=== PATIENT | male | born 1950 | race Hispanic/Latino ===

== ENCOUNTER 2017-10-14 03:36 | Emergency (ER) | payer OTHER ==
[2017-10-14 04:53] LABS: Urine Bacteria <20 /HPF (NONE SEEN); Urine Culture Reflex Order NOT NEEDED; Urine RBC <5 /HPF (NONE SEEN)
[2017-10-14 04:56] LABS: Urine Blood TRACE (NEG); Urine Glucose 3+ (NEG); Urine Protein 2+ (NEG)
--- NOTE | 2017-10-14 05:02 | ER ---
Nurse's Notes [facility] Name: Mary Porter Age: 67 yrs Sex: Male : 1950 Arrival Date: 10/14/2017 Time: 03:37 Bed 5 Private MD: Diagnosis: Groin pain Presentation: 10/14 03:40 Presenting complaint: Patient states: that he is having left lower abd pain that fc started 2 1/2 weeks ago. States that when he lays down that he is ok but when he gets up to move it is worse and very sharp. Pt had BM this morning at 0200. Denies any nausea or vomiting. He is concerned because he was told that his PSA was elevated and thinks he may have something wrong with his prostate. Transition of care: patient was not received from another setting of care. Onset of symptoms was September 2017. Risk Assessment: Do you want to hurt yourself or someone else? Patient reports no desire to harm self or others. Initial Sepsis Screen: Does the patient meet any 2 criteria? No. Patient's initial sepsis screen is negative. Does the patient have a suspected source of infection? No. Patient's initial sepsis screen is negative. Care prior to arrival: None. 03:40 Method Of Arrival: Ambulatory fc 03:40 Acuity: MARISELA 3 fc Triage Assessment: 04:04 General: Appears in no apparent distress. Behavior is calm, cooperative. Pain: ak1 Complains of pain in abdomen, lower. EENT: No signs and/or symptoms were reported regarding the EENT system. Neuro: No deficits noted. Cardiovascular: No deficits noted. Respiratory: No deficits noted. GI: Reports lower abdominal pain, since 2.5 weeks [facility]. pt had CT 10/07/17. : No signs and/or symptoms were reported regarding the genitourinary system. Derm: No signs and/or symptoms reported regarding the dermatologic system. Musculoskeletal: Reports lower abd pain with standing for 2.5 weeks [facility]. pt had out patient CT on 10/07/17. Historical: - Allergies: 04:10 No Known Allergies; fc - Home Meds: 04:10 metoprolol tartrate 25 mg Oral tab 1 tab 2 times per day [Active]; Jardiance 10 mg oral fc tab 1 tab once daily [Active]; Janumet 50-500 mg oral tab 1 tab 2 times per day [Active]; aspirin 81 mg Oral TbEC 1 tab once daily [Active]; BRILINTA 90 mg oral tab 1 tab 2 times per day [Active]; isosorbide mononitrate 30 mg Oral Tb24 1 tab twice a day [Active]; doxycycline hyclate 50 mg Oral cap 1 cap once daily [Active]; losartan 50 mg oral tab 1 tab once daily [Active]; atorvastatin 20 mg oral tab 1 tab once daily [Active]; Nifedical XL 30 mg oral tr24 1 tab once daily [Active]; clonidine HCl 0.1 mg Oral tab 1 tab q 6 hrs prn sbp > 165 and dbp > 90 [Active]; Lucentis [Active]; - PMHx: 04:10 cancer- testicular; Hypertension; GERD; Diabetes - NIDDM; High Cholesterol; fc - PSHx: 04:10 left testicular removal; Knee surgery; Heart stents; fc - Immunization history:: Last tetanus immunization: unknown. - Social history:: Smoking status: Patient/guardian denies using tobacco. - Ebola Screening: : Patient negative for fever greater than or equal to 101.5 degrees Fahrenheit, and additional compatible Ebola Virus Disease symptoms Patient denies exposure to infectious person Patient denies travel to an Ebola-affected area in the 21 days before illness onset. - Family history:: not pertinent. - Hospitalizations: : No recent hospitalization is reported. Screenin:40 Abuse screen: Denies threats or abuse. Nutritional screening: No deficits noted. fc Tuberculosis screening: No symptoms or risk factors identified. Fall Risk None identified. Assessment: 04:18 Reassessment: Patient appears in no apparent distress at this time. No changes from ak1 previously documented assessment. see triage assessment. Vital Signs: 03:40 BP 161 / 89; Pulse 74; Resp 18; Temp 98.3(O); Pulse Ox 95% on R/A; Weight 106.59 kg fc (R); Height 5 ft. 9 in. (175.26 cm) (R); Pain 9/10; 04:43 BP 130 / 73; Pulse 67; Resp 18; Pulse Ox 95% on R/A; ak1 03:40 Body Mass Index 34.70 (106.59 kg, 175.26 cm) ED Course: 03:37 Patient arrived in ED. ds1 03:40 Jerrell Maldonado MD is Attending Physician. rn 03:40 Arm band placed on Patient placed in an exam room, on a stretcher. 03:40 Patient has correct armband on for positive identification. Bed in low position. Call light in reach. 04:01 Triage completed. 04:04 Violet Bernal, RN is Primary Nurse. ak1 04:18 Pulse ox on. NIBP on. ak1 04:18 Urine collected: clean catch specimen, clear. ak1 05:00 No provider procedures requiring assistance completed. ak1 05:02 Patient did not have IV access during this emergency room visit. ak1 Administered Medications: 04:55 Drug: [place] 5 mg-325 mg 1 tabs Route: PO; ak1 05:01 Follow up: Response: No adverse reaction; Medication administered at discharge. ak1 Outcome: 05:01 Discharge ordered by . rn 05:02 Discharged to home ambulatory, with family. ak1 05:02 Condition: stable 05:02 Discharge instructions given to patient, family, Instructed on discharge instructions, follow up and referral plans. no drinking with medication, no driving heavy equipment, medication usage, Demonstrated understanding of instructions, follow-up care, medications, Prescriptions given X 1. 05:06 Patient left the ED. ak1 Signatures: Quiana Hightower RN RN Анна Delaney ds1 Jerrell Maldonado MD MD rn Krenek, Amber, RN RN ak1
--- NOTE | 2017-10-14 05:02 | EDPHYS ---
Physician Documentation [facility] Name: Mary Porter Age: 67 yrs Sex: Male : 1950 Arrival Date: 10/14/2017 Time: 03:37 Bed 5 Private MD: ED Physician Jerrell Maldonado HPI: 10/14 04:04 This 67 yrs old Male presents to ER via Ambulatory with complaints of Hip Pain.rn 04:04 This 67 yrs old Male presents to ER via Ambulatory with complaints of groin rn pain. 04:04 The patient or guardian reports pain. Onset: The symptoms/episode began/occurred 2.5 rn week(s) ago. Severity of symptoms: At their worst the symptoms were moderate, in the emergency department the symptoms have improved. The patient has experienced similar episodes in the past. Reports pain in left groin for 2.5 weeks, intermittent, worse when stands but then gets better as he ambulates, no trauma, no fever, + increased urination today. Seen at [facility] for this 5 days ago, had negative xrays and ct abd/pelvis with and without contrast. + kidney stones seen but in kidney. Currently no pain. . Historical: - Allergies: 04:10 No Known Allergies; fc - Home Meds: 04:10 metoprolol tartrate 25 mg Oral tab 1 tab 2 times per day [Active]; Jardiance 10 mg oral fc tab 1 tab once daily [Active]; Janumet 50-500 mg oral tab 1 tab 2 times per day [Active]; aspirin 81 mg Oral TbEC 1 tab once daily [Active]; BRILINTA 90 mg oral tab 1 tab 2 times per day [Active]; isosorbide mononitrate 30 mg Oral Tb24 1 tab twice a day [Active]; doxycycline hyclate 50 mg Oral cap 1 cap once daily [Active]; losartan 50 mg oral tab 1 tab once daily [Active]; atorvastatin 20 mg oral tab 1 tab once daily [Active]; Nifedical XL 30 mg oral tr24 1 tab once daily [Active]; clonidine HCl 0.1 mg Oral tab 1 tab q 6 hrs prn sbp > 165 and dbp > 90 [Active]; Lucentis [Active]; - PMHx: 04:10 cancer- testicular; Hypertension; GERD; Diabetes - NIDDM; High Cholesterol; fc - PSHx: 04:10 left testicular removal; Knee surgery; Heart stents; fc - Immunization history:: Last tetanus immunization: unknown. - Social history:: Smoking status: Patient/guardian denies using tobacco. - Ebola Screening: : Patient negative for fever greater than or equal to 101.5 degrees Fahrenheit, and additional compatible Ebola Virus Disease symptoms Patient denies exposure to infectious person Patient denies travel to an Ebola-affected area in the 21 days before illness onset. - Family history:: not pertinent. - Hospitalizations: : No recent hospitalization is reported. ROS: 04:04 Constitutional: Negative for fever, chills, and weight loss, Eyes: Negative for injury, rn pain, redness, and discharge, Cardiovascular: Negative for chest pain, palpitations, and edema, Respiratory: Negative for shortness of breath, cough, wheezing, and pleuritic chest pain, Abdomen/GI: Negative for abdominal pain, nausea, vomiting, diarrhea, and constipation, Back: Negative for injury and pain, : + increased urination, no testicular pain MS/Extremity: Negative for injury and deformity, Skin: Negative for injury, rash, and discoloration, Neuro: Negative for headache, weakness, numbness, tingling, and seizure. Exam: 04:04 Constitutional: This is a well developed, well nourished patient who is awake, alert, rn and in no acute distress. Abdomen/GI: Soft, non-tender, with normal bowel sounds. No distension or tympany. No guarding or rebound. No evidence of tenderness throughout. + moderate sized ventral hernia present. Male : Normal genitalia with no discharge or lesions. Skin: Warm, dry with normal turgor. Normal color with no rashes, no lesions, and no evidence of cellulitis. MS/ Extremity: Pulses equal, no cyanosis. Neurovascular intact. Full, normal range of motion. Equal circumference. No bony tenderness, no lymphadenopathy. No hernia palpated in inguinal canal. Vital Signs: 03:40 BP 161 / 89; Pulse 74; Resp 18; Temp 98.3(O); Pulse Ox 95% on R/A; Weight 106.59 kg fc (R); Height 5 ft. 9 in. (175.26 cm) (R); Pain 9/10; 04:43 BP 130 / 73; Pulse 67; Resp 18; Pulse Ox 95% on R/A; ak1 03:40 Body Mass Index 34.70 (106.59 kg, 175.26 cm) fc MDM: 03:40 Patient medically screened. rn 04:58 Differential diagnosis: arthritis, strain, hernia, UTI, radiculopathy. Data reviewed: rn vital signs, nurses notes, lab test result(s), and as a result, I will discharge patient. Counseling: I had a detailed discussion with the patient and/or guardian regarding: the historical points, exam findings, and any diagnostic results supporting the discharge/admit diagnosis, lab results, the need for outpatient follow up, to return to the emergency department if symptoms worsen or persist or if there are any questions or concerns that arise at home. Special discussion: I discussed with the patient/guardian in detail that at this point there is no indication for admission to the hospital. It is understood, however, that if the symptoms persist or worsen the patient needs to return immediately for re-evaluation. 04:58 ED course: No clear etiology of this patient's pain, had normal xrays and ct scans 5 rn days ago, printouts are here with patient, urine negative, does not seem to be kidney stone pain although that is only finding on recent CT scan, no palpable hernia, will prescribe pain medication and f/u with pcp. . 10/14 04:03 Order name: Urine Microscopic Only; Complete Time: 04:58 rn 10/14 04:19 Order name: Urine Dipstick--Ancillary (enter results); Complete Time: 04:58 rg2 10/14 04:03 Order name: Urine Dipstick-Ancillary (obtain specimen); Complete Time: 04:18 rn Administered Medications: 04:55 Drug: Delong 5 mg-325 mg 1 tabs Route: PO; ak1 05:01 Follow up: Response: No adverse reaction; Medication administered at discharge. ak1 Disposition: 10/14/17 05:01 Discharged to Home. Impression: Groin pain. - Condition is Stable. - Discharge Instructions: Pain Without a Known Cause. - Prescriptions for Ultram 50 mg Oral Tablet - take 1 tablet by ORAL route every 8 hours As needed; 20 tablet. - Medication Reconciliation Form, Thank You Letter, Antibiotic Education, Prescription Opioid Use form. - Follow up: Private Physician; When: As needed; Reason: Recheck today's complaints, Re-evaluation by your physician. - Problem is an ongoing problem. - Symptoms have improved. Signatures: Dispatcher [employer] EDQuiana Venegas RN RN fc Nieto, Roman, MD MD rn Krenek, Amber, RN RN ak1 Corrections: (The following items were deleted from the chart) 05:06 05:01 10/14/2017 05:01 Discharged to Home. Impression: Groin pain. Condition is Stable. ak1 Forms are Medication Reconciliation Form, Thank You Letter, Antibiotic Education, Prescription Opioid Use. Follow up: Private Physician; When: As needed; Reason: Recheck today's complaints, Re-evaluation by your physician. Problem is an ongoing problem. Symptoms have improved. rn
[2017-10-14] MEDS ORDERED: HYDROCODONE/APAP 5/325 MG TAB ONE (05:03)
== END 2017-10-14 05:06 | disposition home or self-care (01) ==
LOC: ER 03:36
DX: R10.30 Lower abdominal pain, unspecified (principal); I10 Essential (primary) hypertension; E11.9 Type 2 diabetes mellitus without complications; E78.00 Pure hypercholesterolemia, unspecified; Z85.47 Personal history of malignant neoplasm of testis; Z79.82 Long term (current) use of aspirin
CPT/HCPCS: 81003; 81015; 99284

== ENCOUNTER 2018-07-12 13:56 | Emergency (ER) | payer OTHER ==
--- OUTSIDE RECORDS SUMMARY | 2018-07-12 14:02 | XMS REPORT ---
:1950 [facility] [address] [place] [address] Care Team Providers Name Role Phone Kevin Evans Unavailable Unavailable Problems This patient has no known problems. Allergies, Adverse Reactions, Alerts This patient has no known allergies or adverse reactions. Medications This patient has no known medications. Results Test Description Test Time Test Comments Text Results Atomic Results Result Comments MRI PELVIS W/WO 2018-02-07 13:44:18 CLINICAL INDICATION: C61 malig sergio (PROSTATE) prostateMODALITY: Siemens Skyra 3.0 Marlena MRITECHNIQUE: Multiplanar, multiparametric MRI of the prostate is performed with T1, T2 and diffusion weighted imaging. Quantitative analysis is performed with Frontier SiliconaCAD. IV contrast is administered, 20.0 ml Dotarem Dynamic post-contrast imaging with Frontier SiliconaCAD quantitative analysis are accomplished.[id number] MR DynaCADIMPRESSION:Large targeted lesion in the posterior left peripheral zone extending from the apex to the base, suspicious for high-grade tumor. No definite extracapsular penetration or extra prostatic malignancy.PI-RADS 5: Highly suspicious for malignancy.FINDINGS:COMPARISON: NoneNormal regional marrow signal is observed. No lytic or blastic osseous metastatic lesions.No common iliac, internal iliac, external iliac, inguinal or suspicious sasha-prostatic lymph nodes.Regional bowel appears unremarkable. No mural or intraluminal bladder mass. Anterior abdominal wall and pelvic floor are unremarkable. No evidence of ascites.Estimated prostate volume is 48 ml. A 2.5 x 1.6 x 2.4 cm lesion is targeted in the posterior aspect of the left peripheral zone extending from the apex to the base. This demonstrates moderately low T2 signal with restricted diffusion. There is no suspicious focal enhancement. The lesion abuts the prostate capsule with mild bulging. There is no definite extracapsular penetration. Post-biopsy hemorrhage is noted in the right peripheral zone. Mild to moderate BPH is evident.Seminal vesicles exhibit normal signal intensity. Neurovascular bundles are symmetric in appearance without definite tumor involvement.
--- OUTSIDE RECORDS SUMMARY | 2018-07-12 14:02 | XMS REPORT | Clinical Summary ---
:1950 Author Organization [facility] Address [address] [place] [address] Care Team Providers Name Role Phone Adin Farrar MD Primary Care Provider Allergies Active Allergy Reactions Severity Noted Date Comments Diphenhydramine Hcl Anaphylaxis High 03/13/2016 Medications Medication Sig Dispensed Refills Start Date End Date Status losartan (COZAAR) 50 Take 50 mg by 0 Active MG tablet mouth daily. doxycycline hyclate 50 Take 50 mg by 0 Active mg tablet mouth daily. latanoprost (XALATAN) Administer 1 drop 0 Active 0.005 % ophthalmic to both eyes solution daily. isosorbide mononitrate Take 30 mg by 0 Active (IMDUR) 30 MG 24 hr mouth 2 (two) tablet times a day. aspirin (ECOTRIN) 81 Take 81 mg by 0 Active MG enteric coated mouth daily. tablet ticagrelor (BRILINTA) Take 90 mg by 0 Active 90 mg tablet mouth 2 (two) times a day. metoprolol tartrate Take 25 mg by 0 Active (LOPRESSOR) 25 mg mouth 2 (two) tablet times a day. canagliflozin Take 100 mg by 0 Active (INVOKANA) 100 mg mouth daily. tablet tablet sitaGLIPtin-metformin Take 1 tablet by 0 Active (JANUMET) 50-1,000 mg mouth 2 (two) per tablet times a day with meals. atorvastatin (LIPITOR) Take 20 mg by 0 Active 20 MG tablet mouth daily. Default OP ins ranibizumab (LUCENTIS) Administer 0.3 mg 0 Active 0.3 mg/0.05 mL to the right eye injection every 30 (thirty) days. Active Problems Problem Noted Date SOB (shortness of breath) 03/13/2016 Diabetes mellitus Encounters Date Type Specialty Care Team Description 10/19/2017 Office Visit General Surgery Yosef Whitfield Abdominal wall bulge MD Prerna (Primary Dx) 10/05/2017 Transcribe Orders Radiology Salazar Brink Left lower quadrant MD pain (Primary Dx) after 07/11/2017 Family History Medical History Relation Name Comments No Known Problems Brother No Known Problems Father No Known Problems Mother Relation Name Status Comments Brother Father Mother Social History Tobacco Use Types Packs/Day Years Used Date Former Smoker 20 Quit: 03/13/2012 Alcohol Use Drinks/Week oz/Week Comments No Sex Assigned at Date Recorded Not on file Job Start Date Occupation Industry Not on file Not on file Not on file Travel History Travel Start Travel End No recent travel history available. Last Filed Vital Signs Vital Sign Reading Time Taken Blood Pressure - - Pulse - - Temperature - - Respiratory Rate - - Oxygen Saturation - - Inhaled Oxygen Concentration - - Weight 107 kg (236 lb) 10/07/2017 8:31 AM CDT Height 175.3 cm (5' 9") 10/07/2017 8:31 AM CDT Body Mass Index 34.85 10/07/2017 8:31 AM CDT Plan of Treatment Health Maintenance Due Date Last Done Comments DIABETIC RETINAL EYE EXAM 1950 DIABETIC FOOT EXAM 1961 COLON CANCER SCREENING 2001 SHINGLES VACCINES (#1) 2001 65+ PNEUMOCOCCAL VACCINE (1 of 2 - PCV13) 2016 PNEUMOCOCCAL POLYSACCHARIDE VACCINE AGE 65 AND OVER 2016 INFLUENZA VACCINE 09/08/2018 Implants Implanted Type Area Security Checker Device Shelf Model / Identifier Expiration Serial / Lot Date Stent Cor Resolute Integrity Ztrlims-Eltng Otw 3x15mm - [id number] Coronary N/ A: [employer] [place] - 10/08/2017 [id number] / Implanted: 03/13/2016 (Quantity not on file) Stents N/A VASCULAR / [id number] Procedures Procedure Name Priority Date/Time Associated Diagnosis Comments CT ABDOMEN W WO Routine 10/07/2017 9:45 Unspecified Results for this CONTRAST AM CDT abdominal pain procedure are in the results section. ESTIMATED GFR Routine 10/07/2017 8:42 Results for this AM CDT procedure are in the results section. POC CREATININE Routine 10/07/2017 8:42 Results for this AM CDT procedure are in the results section. after 07/11/[address] Abdomen W Wo Contrast (10/07/2017 9:45 AM CDT) Specimen Narrative Performed At EXAMINATION:CT ABDOMEN W WO CONTRAST [facility] CLINICAL HISTORY:R10.9 Unspecified abdominal pain, abdomin pain TECHNIQUE:CT of the abdomen was obtained following the uneventful administration of intravenous and enteric contrast. Noncontrast images through the abdomen were also obtained. COMPARISON:None. FINDINGS: 1.There is a nonspecific, noncalcified, subpleural pulmonary nodule seen within the right middle lobe inferiorly (image 6, series 2), measuring 0.3 cm in size. This is too small to characterize and may be related to a prior infectious or inflammatory process. 2.Otherwise, bibasilar atelectasis. No pleural effusion. Cardiac size is at the upper limits of normal. Significant three-vessel coronary artery calcification is noted. No pericardial effusion. 3.No hiatal hernia. 4.The liver is unremarkable. No intrahepatic biliary duct dilatation. The main portal vein, intrahepatic portal veins, superior mesenteric vein, and splenic veins are patent. 5.The gallbladder is unremarkable. No gallstones are seen. Common bile duct is within normal limits. 6.The pancreas, spleen, and adrenals are unremarkable. 7.Both kidneys are unremarkable. A low-density masses seen to arise from the lower pole of the left kidney measuring 2 cm in size, likely representing a cyst. No hydronephrosis. Punctate dislocations are seen within the mid/lower pole calyces of the left kidney which may represent nonobstructing renal stones measuring up to 0.8 cm in size. 8.Post surgical changes are seen which may be related to a left lower pole partial nephrectomy. Surgical clips are seen within the retroperitoneum, possibly representing prior lymph node dissection. No fluid collections are seen within the retroperitoneum. 9.The abdominal aorta is normal in caliber with a moderate amount of calcified atherosclerotic disease. 10.No retroperitoneal lymphadenopathy. 11.The visualized loops of large and small bowel are unremarkable. 12.The bones of the abdomen and pelvis are unremarkable. IMPRESSION: 1.No acute abnormality is seen within the abdomen or pelvis. 2.Likely postsurgical changes consistent with a left sided partial nephrectomy and retroperitoneal lymph node dissection. Please clinically correlate. No abdominal mass or retroperitoneal lymphadenopathy. 3.No fluid collections are seen within the abdomen. 4.Other incidental findings as above. [id number] Procedure Note Hm Interface, Radiology Results Incoming - 10/07/2017 10:02 AM CDT EXAMINATION: CT ABDOMEN W WO CONTRAST CLINICAL HISTORY: R10.9 Unspecified abdominal pain, abdomin pain TECHNIQUE: CT of the abdomen was obtained following the uneventful administration of intravenous and enteric contrast. Noncontrast images through the abdomen were also obtained. COMPARISON: None. FINDINGS: 1. There is a nonspecific, noncalcified, subpleural pulmonary nodule seen within the right middle lobe inferiorly (image 6, series 2), measuring 0.3 cm in size. This is too small to characterize and may be related to a prior infectious or inflammatory process. 2. Otherwise, bibasilar atelectasis. No pleural effusion. Cardiac size is at the upper limits of normal. Significant three-vessel coronary artery calcification is noted. No pericardial effusion. 3. No hiatal hernia. 4. The liver is unremarkable. No intrahepatic biliary duct dilatation. The main portal vein, intrahepatic portal veins, superior mesenteric vein, and splenic veins are patent. 5. The gallbladder is unremarkable. No gallstones are seen. Common bile duct is within normal limits. 6. The pancreas, spleen, and adrenals are unremarkable. 7. Both kidneys are unremarkable. A low-density masses seen to arise from the lower pole of the left kidney measuring 2 cm in size, likely representing a cyst. No hydronephrosis. Punctate dislocations are seen within the mid/lower pole calyces of the left kidney which may represent nonobstructing renal stones measuring up to 0.8 cm in size. 8. Post surgical changes are seen which may be related to a left lower pole partial nephrectomy. Surgical clips are seen within the retroperitoneum, possibly representing prior lymph node dissection. No fluid collections are seen within the retroperitoneum. 9. The abdominal aorta is normal in caliber with a moderate amount of calcified atherosclerotic disease. 10. No retroperitoneal lymphadenopathy. 11. The visualized loops of large and small bowel are unremarkable. 12. The bones of the abdomen and pelvis are unremarkable. IMPRESSION: 1. No acute abnormality is seen within the abdomen or pelvis. 2. Likely postsurgical changes consistent with a left sided partial nephrectomy and retroperitoneal lymph node dissection. Please clinically correlate. No abdominal mass or retroperitoneal lymphadenopathy. 3. No fluid collections are seen within the abdomen. 4. Other incidental findings as above. [id number] Performing Organization Address [facility]/Zipcode Phone Number [facility] [address] [place] [address] Estimated GFR (10/07/2017 8:42 AM CDT) GFR Non Af Amer >90 mL/min/1.[address] [facility] DEPARTMENT OF m2 PATHOLOGY AND GENOMIC MEDICINE GFR Af Amer >90 mL/min/1.[address] [facility] DEPARTMENT OF Comment: m2 PATHOLOGY AND Chronic kidney disease: <60 mL/min/1.73m2 GENOMIC MEDICINE Kidney failure: <15 mL/min/1.73m2 The estimated GFR is calculated from the IDMS-traceable Modification of Diet in Renal Disease Equation. The accuracy of the calculation is poor when the creatinine is normal. Calculated values >90 mL/min/1.73m2 are not reported. This equation has not been validated in children (<18 years), women, the elderly (>70 years), or ethnic groups other than Caucasians and Americans. Specimen Blood Performing Organization Address [facility] Phone Number [facility] DEPARTMENT OF PATHOLOGY AND [address] [place] [address] GENOMIC MEDICINE POC creatinine (10/07/2017 8:42 AM CDT) POC creatinine 0.5 (L) 0.7 - 1.[address] [facility] DEPARTMENT OF Comment: mg/dl PATHOLOGY AND Meter ID: [id number] GENOMIC MEDICINE Forepart Laster: Alicia Wood Specimen Blood Performing Organization Address [facility] Phone Number [facility] DEPARTMENT OF PATHOLOGY AND [address] [place] [address] GENOMIC MEDICINE after 07/11/2017 Insurance Payer Benefit Plan / Subscriber ID Effective Dates Phone Address Type Group HUMANA MEDICARE HUMANA MEDICARE xxxxxxxxx 2016-Present PPO PPO/PFFS/ERS [place] ([place]) [place] [address] Advance Directives Patient has advance care planning documents on file. For more information, please contact:Huan Mcneal[address] [place] [phone]
--- NOTE | 2018-07-12 15:16 | EDPHYS ---
Physician Documentation [facility] Name: Mary Porter Age: 68 yrs Sex: Male : 1950 Arrival Date: 07/12/2018 Time: 14:14 Bed 30 Private MD: LINDA Physician Devin Hanks HPI: 07/12 15:11 This 68 yrs old Male presents to ER via Wheelchair with complaints of Back kb Pain. 15:12 The patient presents with pain that is acute. The symptoms are located in the right low kb back. The pain does not radiate. The problem was sustained when bending over. Onset: The symptoms/episode began/occurred 2 month(s) ago. Modifying factors: The patient symptoms are alleviated by remaining still, rest, the patient symptoms are aggravated by any movement. Associated signs and symptoms: The patient has no apparent associated signs or symptoms. Severity of symptoms: At their worst the symptoms were moderate, in the emergency department the symptoms are unchanged. The patient has not experienced similar symptoms in the past. The patient has not recently seen a physician. Pt reports he had had right lower back pain for 1-2 months. STates it has been getting worse as time goes on and he came today because he needs something for the pain. States the pain first started when he was bending over weed eating the yard. Reports he did a lot of yards and house work at the time of the pain starting, but denies injury or trauma. Denies urinary symptoms. Pain is just above right hip. No pain at rest. . Historical: - Home Meds: 14:48 aspirin 81 mg Oral TbEC 1 tab once daily [Active]; atorvastatin 20 mg Oral tab 1 tab tw2 once daily [Active]; BRILINTA 90 mg Oral tab 1 tab 2 times per day [Active]; clonidine HCl 0.1 mg Oral tab 1 tab q 6 hrs prn sbp > 165 and dbp > 90 [Active]; doxycycline hyclate 50 mg Oral cap 1 cap once daily [Active]; isosorbide mononitrate 30 mg Oral Tb24 1 tab twice a day [Active]; Janumet 50-500 mg Oral tab 1 tab 2 times per day [Active]; Jardiance 10 mg Oral tab 1 tab once daily [Active]; losartan 50 mg Oral tab 1 tab once daily [Active]; Lucentis [Active]; metoprolol tartrate 25 mg Oral tab 1 tab 2 times per day [Active]; Nifedical XL 30 mg Oral tr24 1 tab once daily [Active]; - PMHx: 14:48 cancer- testicular; Diabetes - NIDDM; High Cholesterol; GERD; Hypertension; prostate tw2 cancer; - PSHx: 14:48 left testicular removal; Knee surgery; Heart stents; tw2 - Immunization history:: Adult Immunizations. - Social history:: Smoking status: . - Ebola Screening: : Patient denies travel to an Ebola-affected area in the 21 days before illness onset. ROS: 15:08 Constitutional: Negative for fever, chills, and weight loss, Cardiovascular: Negative kb for chest pain, palpitations, and edema, Respiratory: Negative for shortness of breath, cough, wheezing, and pleuritic chest pain, Abdomen/GI: Negative for abdominal pain, nausea, vomiting, diarrhea, and constipation, : Negative for injury, bleeding, discharge, and swelling, MS/Extremity: Negative for injury and deformity, Skin: Negative for injury, rash, and discoloration, Neuro: Negative for headache, weakness, numbness, tingling, and seizure. 15:08 Back: Positive for pain with movement, of the right low back, Negative for injury or acute deformity, decreased range of motion, pain at rest, radiated pain. Exam: 15:08 Constitutional: This is a well developed, well nourished patient who is awake, alert, kb and in no acute distress. Head/Face: Normocephalic, atraumatic. Neck: Trachea midline, no thyromegaly or masses palpated, and no cervical lymphadenopathy. Supple, full range of motion without nuchal rigidity, or vertebral point tenderness. No Meningismus. Chest/axilla: Normal chest wall appearance and motion. Nontender with no deformity. No lesions are appreciated. Cardiovascular: Regular rate and rhythm with a normal S1 and S2. No gallops, murmurs, or rubs. Normal PMI, no JVD. No pulse deficits. Respiratory: Lungs have equal breath sounds bilaterally, clear to auscultation and percussion. No rales, rhonchi or wheezes noted. No increased work of breathing, no retractions or nasal flaring. Abdomen/GI: Soft, non-tender, with normal bowel sounds. No distension or tympany. No guarding or rebound. No evidence of tenderness throughout. Skin: Warm, dry with normal turgor. Normal color with no rashes, no lesions, and no evidence of cellulitis. MS/ Extremity: Pulses equal, no cyanosis. Neurovascular intact. Full, normal range of motion. Neuro: Awake and alert, GCS 15, oriented to person, place, time, and situation. Cranial nerves II-XII grossly intact. Motor strength 5/5 in all extremities. Sensory grossly intact. Cerebellar exam normal. Normal gait. 15:08 Back: pain, that is moderate, of the right low back, ROM is painful, with all movement, normal spinal alignment noted, CVA tenderness, is absent, vertebral tenderness, is not appreciated, Straight leg raises: of both lower extremities does not illicit pain. Vital Signs: 14:48 BP 117 / 72; Pulse 67; Resp 17; Temp 98.0(O); Pulse Ox 95% on R/A; Weight 108.86 kg tw2 (R); Height 5 ft. 9 in. (175.26 cm); Pain 7/10; 15:38 BP 138 / 79; Pulse 68; Resp 16; Temp 98; Pulse Ox 96% ; rv 14:48 Body Mass Index 35.44 (108.86 kg, 175.26 cm) tw2 MDM: 14:57 Patient medically screened. kb 15:10 Data reviewed: vital signs, nurses notes. Data interpreted: Pulse oximetry: on room air kb is 95 %. Interpretation: normal. Counseling: I had a detailed discussion with the patient and/or guardian regarding: the historical points, exam findings, and any diagnostic results supporting the discharge/admit diagnosis, the need for outpatient follow up, a family practitioner, to return to the emergency department if symptoms worsen or persist or if there are any questions or concerns that arise at home. ED course: Pt has no pain on palpation. No pain with ROM of right hip. . [id number] 15:40 Order name: Urine Dipstick--Ancillary (enter results) bd 07/12 15:06 Order name: Urine Dipstick-Ancillary (obtain specimen); Complete Time: 15:17 kb Administered Medications: 15:17 Drug: Flexeril 10 mg Route: PO; rv 15:41 Follow up: Response: Marked relief of symptoms; Pain is decreased rv 15:17 Drug: TORadol 60 mg Route: IM; Site: right deltoid; rv 15:41 Follow up: Response: Marked relief of symptoms; Pain is decreased rv Disposition: 07/13 07:44 Co-signature as Attending Physician, Devin Hanks MD I agree with the assessment and willian plan of care. Disposition: 07/12/18 15:15 Discharged to Home. Impression: Low back pain. - Condition is Stable. - Discharge Instructions: Back Injury Prevention, [id number], Back Pain, Adult, Zlxk-[id number], Back Exercises, Mnso-wx-[id number]. - Prescriptions for Cyclobenzaprine 10 mg Oral Tablet - take 1 tablet by ORAL route every 8 hours As needed; 21 tablet. Diclofenac Sodium 75 mg Oral Tablet, Delayed Release (E.C.) - take 1 tablet by ORAL route 2 times per day As needed; 30 tablet. - Medication Reconciliation Form, Thank You Letter, Antibiotic Education, Prescription Opioid Use form. - Follow up: Emergency Department; When: As needed; Reason: Worsening of condition. Follow up: Private Physician; When: 2 - 3 days; Reason: Recheck today's complaints, Continuance of care, Re-evaluation by your physician. Signatures: Dispatcher [employer] EDTiffany Parsons, CREDIT CONTROL ADMINISTRATOR-C CREDIT CONTROL ADMINISTRATOR-Devin Suarez MD MD cha Wise, Tara, RN RN tw2 Tj Linares, RN RN rv Corrections: (The following items were deleted from the chart) 07/12 15:42 15:15 07/12/2018 15:15 Discharged to Home. Impression: Low back pain. Condition is rv Stable. Forms are Medication Reconciliation Form, Thank You Letter, Antibiotic Education, Prescription Opioid Use. Follow up: Emergency Department; When: As needed; Reason: Worsening of condition. Follow up: Private Physician; When: 2 - 3 days; Reason: Recheck today's complaints, Continuance of care, Re-evaluation by your physician. kb
--- NOTE | 2018-07-12 15:16 | ER ---
Nurse's Notes [facility] Name: Mary Porter Age: 68 yrs Sex: Male : 1950 Arrival Date: 07/12/2018 Time: 14:14 Bed 30 Private MD: Diagnosis: Low back pain Presentation: 07/12 14:44 Presenting complaint: Patient states: i have this pain on RIGHT side on my waist, it tw2 started on and off for sometime now, it has been getting worse and worse, i have been going through radiation treatments for prostate cancer, i finished the treatments 1 month ago, pain gets worse with position change, standing and walking hurts it. Presenting complaint: Patient states: i notice when i lay down it relaxes. Transition of care: patient was not received from another setting of care. Onset of symptoms was July 12, 2018. Risk Assessment: Do you want to hurt yourself or someone else? Patient reports no desire to harm self or others. Initial Sepsis Screen: Does the patient meet any 2 criteria? No. Patient's initial sepsis screen is negative. Does the patient have a suspected source of infection? No. Patient's initial sepsis screen is negative. Care prior to arrival: None. 14:44 Method Of Arrival: Wheelchair tw2 14:44 Acuity: MARISELA 3 tw2 Triage Assessment: 14:48 General: Appears in no apparent distress. Behavior is calm, cooperative, appropriate tw2 for age. Pain: Complains of pain in right low back. Musculoskeletal: Circulation, motion, and sensation intact. Range of motion: intact in all extremities, Reports pain in right low back. Historical: - Home Meds: 14:48 aspirin 81 mg Oral TbEC 1 tab once daily [Active]; atorvastatin 20 mg Oral tab 1 tab tw2 once daily [Active]; BRILINTA 90 mg Oral tab 1 tab 2 times per day [Active]; clonidine HCl 0.1 mg Oral tab 1 tab q 6 hrs prn sbp > 165 and dbp > 90 [Active]; doxycycline hyclate 50 mg Oral cap 1 cap once daily [Active]; isosorbide mononitrate 30 mg Oral Tb24 1 tab twice a day [Active]; Janumet 50-500 mg Oral tab 1 tab 2 times per day [Active]; Jardiance 10 mg Oral tab 1 tab once daily [Active]; losartan 50 mg Oral tab 1 tab once daily [Active]; Lucentis [Active]; metoprolol tartrate 25 mg Oral tab 1 tab 2 times per day [Active]; Nifedical XL 30 mg Oral tr24 1 tab once daily [Active]; - PMHx: 14:48 cancer- testicular; Diabetes - NIDDM; High Cholesterol; GERD; Hypertension; prostate tw2 cancer; - PSHx: 14:48 left testicular removal; Knee surgery; Heart stents; tw2 - Immunization history:: Adult Immunizations. - Social history:: Smoking status: . - Ebola Screening: : Patient denies travel to an Ebola-affected area in the 21 days before illness onset. Screenin:40 Abuse screen: Denies threats or abuse. Denies injuries from another. Nutritional rv screening: No deficits noted. Tuberculosis screening: No symptoms or risk factors identified. Fall Risk None identified. Assessment: 15:00 General: Appears in no apparent distress. uncomfortable, Behavior is calm, cooperative. rv 15:00 Pain: Complains of pain in back. Neuro: Level of Consciousness is awake, alert, obeys rv commands, Oriented to person, place, time, situation. Cardiovascular: Patient's skin is warm and dry. Respiratory: Airway is patent. GI: No signs and/or symptoms were reported involving the gastrointestinal system. : No signs and/or symptoms were reported regarding the genitourinary system. EENT: No signs and/or symptoms were reported regarding the EENT system. Derm: Skin is intact. Musculoskeletal: Reports pain in back. Vital Signs: 14:48 BP 117 / 72; Pulse 67; Resp 17; Temp 98.0(O); Pulse Ox 95% on R/A; Weight 108.86 kg tw2 (R); Height 5 ft. 9 in. (175.26 cm); Pain 7/10; 15:38 BP 138 / 79; Pulse 68; Resp 16; Temp 98; Pulse Ox 96% ; rv 14:48 Body Mass Index 35.44 (108.86 kg, 175.26 cm) tw2 ED Course: 14:14 Patient arrived in ED. mr 14:45 Triage completed. tw2 14:48 Arm band placed on. tw2 14:57 Tiffany Vazquez FNP-C is [facility]. kb 14:57 Devin Hanks MD is Attending Physician. kb 15:11 Tj Linares, RN is Primary Nurse. rv 15:40 Patient has correct armband on for positive identification. Bed in low position. Call rv light in reach. Side rails up X 1. Pulse ox on. NIBP on. 15:40 No provider procedures requiring assistance completed. Patient did not have IV access rv during this emergency room visit. Administered Medications: 15:17 Drug: Flexeril 10 mg Route: PO; rv 15:41 Follow up: Response: Marked relief of symptoms; Pain is decreased rv 15:17 Drug: TORadol 60 mg Route: IM; Site: right deltoid; rv 15:41 Follow up: Response: Marked relief of symptoms; Pain is decreased rv Outcome: 15:15 Discharge ordered by MD. kb 15:41 Discharged to home ambulatory. rv 15:41 Condition: good 15:41 Discharge instructions given to patient, family, Instructed on discharge instructions, follow up and referral plans. medication usage, Demonstrated understanding of instructions, follow-up care, medications, Prescriptions given X 2. 15:42 Patient left the ED. rv Signatures: Tiffany Vazquez, MANAGER OF FINANCIAL REPORTING-C MANAGER OF FINANCIAL REPORTING-Katherine Vines mr Sandy Liriano, RN RN tw2 Tj Linares, RN RN rv
[2018-07-12] MEDS ORDERED: KETOROLAC 30 MG/ML INJ ONE (15:28)
[2018-07-12] MEDS ORDERED: CYCLOBENZAPRINE 10 MG TAB ONE (15:28)
[2018-07-12 15:45] LABS: Urine Blood NEGATIVE (NEG); Urine Glucose 2+ (NEG); Urine Protein NEGATIVE (NEG)
== END 2018-07-12 15:42 | disposition home or self-care (01) ==
LOC: ER 13:56
DX: M54.5 Low back pain (principal); I10 Essential (primary) hypertension; E11.9 Type 2 diabetes mellitus without complications; Z79.82 Long term (current) use of aspirin; Z85.46 Personal history of malignant neoplasm of prostate; Z85.47 Personal history of malignant neoplasm of testis; Z95.818 Presence of other cardiac implants and grafts
CPT/HCPCS: 81003; 96372; 99283

== ENCOUNTER 2019-02-22 01:11 | Observation (INO) | payer OTHER ==
--- OUTSIDE RECORDS SUMMARY | 2019-02-22 01:13 | XMS REPORT ---
:1950 [facility] Address [address] [place] [address] Care Team Providers Name Role Phone Araseli Xiong Unavailable Unavailable Problems This patient has no known problems. Allergies, Adverse Reactions, Alerts This patient has no known allergies or adverse reactions. Medications This patient has no known medications. Results Test Description Test Time Test Comments Text Results Atomic Results Result Comments MRI LUMBAR WO/W 2018-07-22 10:53:56 CLINICAL INDICATION: M54.5 Low back pain, radiation to right sideMODALITY: Avanto 1.5 Marlena 18 channel MRI TECHNIQUE: Multiplanar multi sequence MRI examination of the lumbar spine was performed. IV contrast, 18 ml Dotarem administered and post-contrast imaging performed.IMPRESSION:1. There are five lumbar vertebra without fracture or destructive osseous lesion.2. Mild degeneration of discs from L1-2 - L4-5.3. There is borderline central canal stenosis at L2-3 with patent foramen.4. At L3-4 there is 3 mm diffuse spondylitic protrusion with mild to moderate central canal stenosis. Moderate right and mild left foraminal stenosis is present.5. At L4-5 there is 3 mm diffuse spondylitic protrusion with moderate central canal stenosis. Moderate bilateral foraminal/lateral recess stenosis is present.6. Multilevel hypertrophic degenerated facet joints with degenerated ligamentum flavum from L2-3 - L4-5.FINDINGS:COMPARISON: noneGeneral observations: There are five lumbar vertebra noted for purposes of this report.There are no fractures or destructive osseous lesions.Vertebral heights are well maintained.There is mild degeneration of discs from L1-2 - L4-5 with nuclear desiccation and spondylosis of endplates. Disc heights are also mildly reduced.There are no paraspinous or prevertebral masses.Conus medullaris and cauda equina are within normal limits with conus terminating at T12-L1.There are surgical clips adjacent to the aorta in the retroperitoneum.No pathologic enhancement is seen following contrast administration.FINDINGS AT SPECIFIC LEVELS:L5-S1: Disc height is well-maintained with normal hydration. Central canal and foramen are patent. Facet joints are mildly degenerated.L4-L5: There is mild loss of disc height with nuclear desiccation and mild spondylosis. 3 mm diffuse spondylitic protrusion is present with moderate central canal stenosis. There is moderate bilateral foraminal/lateral recess stenosis which is relatively symmetric. Moderate hypertrophic facet arthrosis is present with mild ligamentum flavum hypertrophy.L3-L4: Disc height is mildly reduced with nuclear dehydration and spondylosis. 3 mm diffuse spondylitic protrusion is present. There is mild to moderate circumferential central canal stenosis with moderate right and mild left foraminal narrowing. Moderate hypertrophic facet arthrosis is present with ligamentum flavum hypertrophy.L2-L3: There is mild loss of disc height with nuclear dehydration and circumferential spondylosis. 2 mm diffuse spondylitic protrusion is present. Facet joints are moderately degenerated with degenerated ligamentum flavum. Central canal is borderline size. Foramen are patent without focal nerve root impingement.L1-L2: There is mild loss of disc height with nuclear dehydration and spondylosis. Broad-based 1 mm posterior spondylitic protrusion is present with patent canal and patent foramen. Facet joints are moderately degenerated. MRI PELVIS W/WO 2018-02-07 13:44:18 CLINICAL INDICATION: C61 malig sergio (PROSTATE) prostateMODALITY: Siemens Skyra 3.0 Marlena MRITECHNIQUE: Multiplanar, multiparametric MRI of the prostate is performed with T1, T2 and diffusion weighted imaging. Quantitative analysis is performed with DynaCAD. IV contrast is administered, 20.0 ml Dotarem Dynamic post-contrast imaging with DynaCAD quantitative analysis are accomplished.[id number] MR DynaCADIMPRESSION:Large targeted lesion in the posterior [...]
[2019-02-22] MEDS ORDERED: ALBUTEROL 2.5 MG/3 ML NEB SOL ONE (01:46)
[2019-02-22] MEDS ORDERED: IPRATROPIUM BROM 0.5MG/2.5ML ONE (01:46)
[2019-02-22 03:01] LABS: Basophils % 0.6 % (0-1.3); RBC Red Blood Cell Count 4.21 M/uL (4.33-5.43)
[2019-02-22 03:04] LABS: Protime INR 1.06
[2019-02-22 03:12] LABS: ALT/SGPT 24 U/L (12-78); AST/SGOT 18 U/L (15-37); Albumin 3.5 g/dL (3.4-5.0); Alkaline Phosphatase 47 U/L (45-117); BUN Blood Urea Nitrogen 16 mg/dL (7-18); Bicarbonate 25 mmol/L (21-32); Bilirubin Direct 0.2 mg/dL (0-0.2); Bilirubin Total 0.5 mg/dL (0.2-1.0); CKMB Creatine Kinase MB < 1.0 ng/mL (0.3-3.6); Creatine Phosphokinase 119 U/L (39-308); Glucose Level 128 mg/dL (74-106); Lipase 104 U/L (73-393); Magnesium 2.1 mg/dL (1.8-2.4); NT PRO-BNP 619 pg/mL (<125); Potassium 3.7 mmol/L (3.5-5.1); Protein, Total 7.9 g/dL (6.4-8.2); Sodium Level 137 mmol/L (136-145); Troponin (Emerg Dept Use Only) 0.07 ng/mL (0.0-0.045)
[2019-02-22] MEDS ORDERED: FUROSEMIDE 20 MG/ 2ML VIAL ONE (03:57)
[2019-02-22] MEDS ORDERED: FUROSEMIDE 40 MG/4 ML VIAL ONE (04:00)
--- NOTE | 2019-02-22 04:04 | EDPHYS ---
Physician Documentation [facility] Name: Mary Porter Age: 68 yrs Sex: Male : 1950 Arrival Date: 02/22/2019 Time: 01:13 Bed 16 Private MD: ED Physician Tj Elizondo HPI: 02/22 03:04 This 68 yrs old Male presents to ER via Ambulatory with complaints of Cough, tw4 Wheezing. 03:04 The patient or guardian reports cough. Onset: The symptoms/episode began/occurred tw4 yesterday. Severity of symptoms: At their worst the symptoms were moderate, in the emergency department the symptoms are unchanged. Modifying factors: The symptoms are alleviated by nothing, the symptoms are aggravated by nothing. Associated signs and symptoms: The patient has no apparent associated signs or symptoms. The patient has not experienced similar symptoms in the past. Historical: - Allergies: 01:14 No Known Allergies; jb4 - Home Meds: 01:14 BRILINTA 90 mg Oral tab 1 tab 2 times per day [Active]; losartan 50 mg Oral tab 1 tab jb4 once daily [Active]; Janumet 50-500 mg Oral tab 1 tab 2 times per day [Active]; metoprolol tartrate 25 mg Oral tab 1 tab 2 times per day [Active]; Nifedical XL 30 mg Oral tr24 1 tab once daily [Active]; isosorbide mononitrate 30 mg Oral Tb24 1 tab twice a day [Active]; Jardiance 10 mg Oral tab 1 tab once daily [Active]; atorvastatin 20 mg Oral tab 1 tab once daily [Active]; aspirin 81 mg Oral TbEC 1 tab once daily [Active]; doxycycline hyclate 50 mg Oral cap 1 cap once daily [Active]; Lucentis [Active]; clonidine HCl 0.1 mg Oral tab 1 tab q 6 hrs prn sbp > 165 and dbp > 90 [Active]; latanoprost 0.005 % ophthalmic drop 1 drop once daily [Active]; tramadol 50 mg Oral tab 1 tab every 6 hours [Active]; diclofenac sodium 75 mg oral TbEC 1 tab 2 times per day [Active]; cyclobenzaprine 10 mg Oral tab 1 tab 3 times per day [Active]; tramadol 50 mg Oral tab 1 tab every 6 hours [Active]; meloxicam 7.5 mg oral tab 1 tab once daily [Active]; - PMHx: 01:14 cancer- testicular; GERD; Diabetes - NIDDM; Hypertension; High Cholesterol; Prostate jb4 Cancer; - PSHx: 01:14 left testicular removal; Heart stents; Knee surgery; jb4 - Immunization history:: Adult Immunizations up to date. - Social history:: Smoking status: Patient/guardian denies using tobacco, Patient uses alcohol, but reports only rare drinking. Patient/guardian denies using street drugs. - Ebola Screening: : No symptoms or risks identified at this time. ROS: 03:04 Constitutional: Negative for fever, chills, and weight loss, Eyes: Negative for injury, tw4 pain, redness, and discharge, Cardiovascular: Negative for chest pain, palpitations, and edema, Abdomen/GI: Negative for abdominal pain, nausea, vomiting, diarrhea, and constipation, Back: Negative for injury and pain, MS/Extremity: Negative for injury and deformity, Skin: Negative for injury, rash, and discoloration. 03:04 Respiratory: Positive for cough, with no reported sputum, shortness of breath, wheezing, Negative for dyspnea on exertion, hemoptysis, orthopnea, pleurisy. Exam: 03:04 Constitutional: This is a well developed, well nourished patient who is awake, alert, tw4 and in no acute distress. Head/Face: Normocephalic, atraumatic. Chest/axilla: Normal chest wall appearance and motion. Nontender with no deformity. No lesions are appreciated. Cardiovascular: Regular rate and rhythm with a normal S1 and S2. No gallops, murmurs, or rubs. Normal PMI, no JVD. No pulse deficits. Abdomen/GI: Soft, non-tender, with normal bowel sounds. No distension or tympany. No guarding or rebound. No evidence of tenderness throughout. Back: No spinal tenderness. No costovertebral tenderness. Full range of motion. MS/ Extremity: Pulses equal, no cyanosis. Neurovascular intact. Full, normal range of motion. Neuro: Awake and alert, GCS 15, oriented to person, place, time, and situation. Cranial nerves II-XII grossly intact. Motor strength 5/5 in all extremities. Sensory grossly intact. Cerebellar exam normal. Normal gait. 03:04 Respiratory: the patient does not display signs of respiratory distress, Respirations: normal, Breath sounds: wheezing: Vital Signs: 01:14 BP 111 / 68; Pulse 67; Resp 16; Temp 99.1(O); Pulse Ox 93% on R/A; Weight 108.86 kg jb4 (R); Height 5 ft. 9 in. (175.26 cm) (R); Pain 0/10; 02:40 BP 104 / 61; Pulse 83; Resp 18; Pulse Ox 93% on R/A; jb4 03:30 BP 111 / 62; Pulse 81; Resp 16; Pulse Ox 91% on R/A; jb4 04:30 BP 114 / 94; Pulse 74; Resp 16; Pulse Ox 92% on R/A; jb4 05:30 BP 104 / 65; Pulse 75; Resp 18; Temp 98.8(TE); Pulse Ox 96% on R/A; jb4 06:15 BP 137 / 75; Pulse 90; Resp 20; Pulse Ox 97% on 2 lpm NC; jb4 01:14 Body Mass Index 35.44 (108.86 kg, 175.26 cm) jb4 MDM: 01:32 Patient medically screened. tw4 04:51 Differential Diagnosis: Obstructed Airway Bronchitis Influenza Upper Respiratory tw4 Infection. Data reviewed: vital signs, nurses notes, lab test result(s), cardiac enzymes, troponin i, electrolytes, hepatic panel. Data interpreted: Pulse oximetry: Interpretation: hypoxia. Plan: O2 by NC applied. Counseling: I had a detailed discussion with the patient and/or guardian regarding: the historical points, exam findings, and any diagnostic results supporting the discharge/admit diagnosis, lab results, radiology results. Medication response: albuterol nebulizer treatment(s) markedly relieved the patient's wheezing. Response to treatment: the patient's symptoms have markedly improved after treatment, and as a result, I will admit patient. Physician consultation: Maggie Zuñiga MD regarding admission, to the telemetry unit. patient's condition, and will see patient in inpatient room. 02/22 02:36 Order name: Basic Metabolic Panel; Complete Time: 03:43 EDMS 02/22 03:44 Interpretation: Normal except: GLUC 128; CA 8.4. tw4 02/22 01:33 Order name: XRAY CXR (1 view) tw4 02/22 02:36 Order name: Liver (Hepatic) Function; Complete Time: 03:43 EDMS 02/22 03:44 Interpretation: Normal except: GLOB 4.4; A/G 0.8. 02/22 02:36 Order name: Creatine Phosphokinase; Complete Time: 03:43 EDMS 02/22 03:44 Interpretation: Within normal limits: CPK 119. 02/22 02:36 Order name: CKMB Creatine Kinase MB; Complete Time: 03:43 EDMS 02/22 03:45 Interpretation: Within normal limits: CKMB < 1.0. 02/22 02:36 Order name: Troponin (Emerg Dept Use Only); Complete Time: 03:43 EDMS 02/22 03:44 Interpretation: Normal except: TROPED 0.07. 02/22 02:36 Order name: NT PRO-BNP; Complete Time: 03:43 EDMS 02/22 03:44 Interpretation: Abnormal: NT PRO-BNP 619. 02/22 02:36 Order name: Magnesium; Complete Time: 03:43 MS 02/22 03:45 Interpretation: Normal except: MG 2.1. 02/22 02:36 Order name: Lipase; Complete Time: 03:43 MS 02/22 03:46 Interpretation: Within normal limits: LIP 104. 02/22 02:39 Order name: CBC with Automated Diff; Complete Time: 03:43 MS 02/22 03:44 Interpretation: Normal except: RBC 4.21; HGB 12.4; HCT 38.0. 02/22 02:39 Order name: Protime (+INR); Complete Time: 03:43 MS 02/22 02:39 Order name: PTT, Activated Partial Thromb; Complete Time: 03:43 MS 02/22 02:39 Order name: D-Dimer; Complete Time: 03:43 EDMS 02/22 02:39 Order name: Blood Culture 02/22 02:39 Order name: Blood Culture 02/22 01:33 Order name: EKG; Complete Time: 02:59 02/22 01:33 Order name: Cardiac monitoring; Complete Time: 02:30 02/22 01:33 Order name: EKG - Nurse/Tech; Complete Time: 02:30 02/22 01:33 Order name: IV Saline Lock; Complete Time: 02:32 tw4 02/22 01:33 Order name: Labs collected and sent; Complete Time: 02:32 4 02/22 01:33 Order name: O2 Per Protocol; Complete Time: 02:32 4 02/22 01:33 Order name: O2 Sat Monitoring; Complete Time: 02:32 tw4 02/22 04:55 Order name: Heart Healthy EDMS Administered Medications: 01:35 Drug: DuoNeb (3:1) (2.5 mg - 0.5 mg) 3 ml Route: Nebulizer; jb4 04:00 Drug: Lasix 40 mg Route: IVP; Site: right hand; 4 04:30 Follow up: Response: No adverse reaction jb4 04:06 Not Given (Other Intervention Used): Lasix 20 mg IVP once jb4 Disposition: 02/22/19 04:03 Hospitalization ordered by Maggie Zuñiga for Inpatient Admission. Preliminary diagnosis are Unspecified combined systolic (congestive) and diastolic (congestive) heart failure, Hypoxemia. - Bed requested for Telemetry/MedSurg (Inpatient). - Status is Inpatient Admission. jb4 - Condition is Stable. - Problem is new. - Symptoms have improved. UTI on Admission? No Signatures: Dispatcher [employer] Patrizia Lazcano RN RN cg Bryson, James, RN RN jb4 Tj Elizondo MD MD tw4 Corrections: (The following items were deleted from the chart) 03:03 02:59 D-DIMER+COAG.LAB.BRZ ordered. EDMS EDMS 03:03 02:59 PROTIME (+INR)+COAG.LAB.BRZ ordered. EDMS EDMS 03:03 02:59 PTT, ACTIVATED+COAG.LAB.BRZ ordered. EDMS EDMS 03:04 02:59 BASIC METABOLIC PANEL+C.LAB.BRZ ordered. EDMS EDMS 03:04 02:59 CBC+H.LAB.BRZ ordered. EDMS EDMS 03:04 02:59 CKMB+C.LAB.BRZ ordered. EDMS EDMS 03:04 02:59 CREATINE PHOSPHOKINASE+C.LAB.BRZ ordered. EDMS EDMS 03:04 02:59 HEPATIC FUNCTION+C.LAB.BRZ ordered. EDMS EDMS 03:04 02:59 TROPONIN (EMERG DEPT USE ONLY)+C.LAB.BRZ ordered. [facility]SD 03:05 02:59 BLOOD CULTURE*+BA.LAB.BRZ ordered. [facility] 03:05 02:59 LIPASE+C.LAB.BRZ ordered. [facility] 03:05 02:59 MAGNESIUM+C.LAB.BRZ ordered. [facility] 03:05 02:59 PROBNP+C.LAB.BRZ ordered. [facility] 05:42 04:03 Hospitalization Ordered by Maggie Zuñiga MD for Inpatient Admission. Preliminary cg diagnosis is Unspecified combined systolic (congestive) and diastolic (congestive) heart failure; Hypoxemia. Bed requested for Telemetry/MedSurg (Inpatient). Status is Inpatient Admission. Condition is Stable. Problem is new. Symptoms have improved. UTI on Admission? No. tw4 06:37 05:42 02/22/2019 04:03 Hospitalization Ordered by Maggie Zuñiga MD for Inpatient jb4 Admission. Preliminary diagnosis is Unspecified combined systolic (congestive) and diastolic (congestive) heart failure; Hypoxemia. Bed requested for Telemetry/MedSurg (Inpatient). Status is Inpatient Admission. Condition is Stable. Problem is new. Symptoms have improved. UTI on Admission? No. cg
--- NOTE | 2019-02-22 04:04 | ER ---
Nurse's Notes [facility] Name: Mary Porter Age: 68 yrs Sex: Male : 1950 Arrival Date: 02/22/2019 Time: 01:13 Bed 16 Private MD: Diagnosis: Unspecified combined systolic (congestive) and diastolic (congestive) heart failure;Hypoxemia Presentation: 02/22 01:20 Presenting complaint: Patient states: Yesterday I had a cough, tonight my noticed jb4 I was wheezing pretty bad when I was laying down sleeping. 01:20 Transition of care: patient was not received from another setting of care. Onset of jb4 symptoms was February 22, 2019. Risk Assessment: Do you want to hurt yourself or someone else? Patient reports no desire to harm self or others. Initial Sepsis Screen: Does the patient meet any 2 criteria? No. Patient's initial sepsis screen is negative. Does the patient have a suspected source of infection? No. Patient's initial sepsis screen is negative. Care prior to arrival: None. 01:20 Method Of Arrival: Ambulatory jb4 01:20 Acuity: MARISELA 3 jb4 Historical: - Allergies: 01:14 No Known Allergies; jb4 - Home Meds: 01:14 BRILINTA 90 mg Oral tab 1 tab 2 times per day [Active]; losartan 50 mg Oral tab 1 tab jb4 once daily [Active]; Janumet 50-500 mg Oral tab 1 tab 2 times per day [Active]; metoprolol tartrate 25 mg Oral tab 1 tab 2 times per day [Active]; Nifedical XL 30 mg Oral tr24 1 tab once daily [Active]; isosorbide mononitrate 30 mg Oral Tb24 1 tab twice a day [Active]; Jardiance 10 mg Oral tab 1 tab once daily [Active]; atorvastatin 20 mg Oral tab 1 tab once daily [Active]; aspirin 81 mg Oral TbEC 1 tab once daily [Active]; doxycycline hyclate 50 mg Oral cap 1 cap once daily [Active]; Lucentis [Active]; clonidine HCl 0.1 mg Oral tab 1 tab q 6 hrs prn sbp > 165 and dbp > 90 [Active]; latanoprost 0.005 % ophthalmic drop 1 drop once daily [Active]; tramadol 50 mg Oral tab 1 tab every 6 hours [Active]; diclofenac sodium 75 mg oral TbEC 1 tab 2 times per day [Active]; cyclobenzaprine 10 mg Oral tab 1 tab 3 times per day [Active]; tramadol 50 mg Oral tab 1 tab every 6 hours [Active]; meloxicam 7.5 mg oral tab 1 tab once daily [Active]; - PMHx: 01:14 cancer- testicular; GERD; Diabetes - NIDDM; Hypertension; High Cholesterol; Prostate jb4 Cancer; - PSHx: 01:14 left testicular removal; Heart stents; Knee surgery; jb4 - Immunization history:: Adult Immunizations up to date. - Social history:: Smoking status: Patient/guardian denies using tobacco, Patient uses alcohol, but reports only rare drinking. Patient/guardian denies using street drugs. - Ebola Screening: : No symptoms or risks identified at this time. Screenin:14 Abuse screen: Denies threats or abuse. Nutritional screening: No deficits noted. jb4 Tuberculosis screening: No symptoms or risk factors identified. Fall Risk None identified. Assessment: 01:14 General: Appears in no apparent distress. comfortable, Behavior is calm, cooperative, jb4 appropriate for age. Pain: Denies pain. Neuro: Level of Consciousness is awake, alert, obeys commands, Oriented to person, place, time, situation. Cardiovascular: Patient's skin is warm and dry. Respiratory: Airway is patent Respiratory effort is even, unlabored, Respiratory pattern is regular, symmetrical, Breath sounds are clear in left upper lobe and left lower lobe Breath sounds with wheezes in right upper lobe, right middle lobe and right lower lobe. GI: No signs and/or symptoms were reported involving the gastrointestinal system. : No signs and/or symptoms were reported regarding the genitourinary system. EENT: No signs and/or symptoms were reported regarding the EENT system. Derm: Skin is intact, Skin is pink, warm \T\ dry. Musculoskeletal: Circulation, motion, and sensation intact. Range of motion: intact in all extremities. 02:40 Reassessment: Patient appears in no apparent distress at this time. Patient and/or jb4 family updated on plan of care and expected duration. Pain level reassessed. Patient is alert, oriented x 3, equal unlabored respirations, skin warm/dry/pink. 03:49 Reassessment: Patient appears in no apparent distress at this time. Patient and/or jb4 family updated on plan of care and expected duration. Pain level reassessed. Patient is alert, oriented x 3, equal unlabored respirations, skin warm/dry/pink. Provider is at the bedside updating pt on plan of care. 04:45 Reassessment: Patient appears in no apparent distress at this time. Patient and/or jb4 family updated on plan of care and expected duration. Pain level reassessed. Patient is alert, oriented x 3, equal unlabored respirations, skin warm/dry/pink. 05:45 Reassessment: Patient appears in no apparent distress at this time. Patient and/or jb4 family updated on plan of care and expected duration. Pain level reassessed. Patient is alert, oriented x 3, equal unlabored respirations, skin warm/dry/pink. 05:50 Reassessment: attempted to call report instructed to wait for call back. jb4 06:32 Reassessment: Patient appears in no apparent distress at this time. Patient and/or jb4 family updated on plan of care and expected duration. Pain level reassessed. Patient is alert, oriented x 3, equal unlabored respirations, skin warm/dry/pink. Vital Signs: 01:14 BP 111 / 68; Pulse 67; Resp 16; Temp 99.1(O); Pulse Ox 93% on R/A; Weight 108.86 kg jb4 (R); Height 5 ft. 9 in. (175.26 cm) (R); Pain 0/10; 02:40 BP 104 / 61; Pulse 83; Resp 18; Pulse Ox 93% on R/A; jb4 03:30 BP 111 / 62; Pulse 81; Resp 16; Pulse Ox 91% on R/A; jb4 04:30 BP 114 / 94; Pulse 74; Resp 16; Pulse Ox 92% on R/A; jb4 05:30 BP 104 / 65; Pulse 75; Resp 18; Temp 98.8(TE); Pulse Ox 96% on R/A; jb4 06:15 BP 137 / 75; Pulse 90; Resp 20; Pulse Ox 97% on 2 lpm NC; jb4 01:14 Body Mass Index 35.44 (108.86 kg, 175.26 cm) jb4 ED Course: 01:13 Patient arrived in ED. cl3 01:14 Arm band placed on right wrist. jb4 01:14 Patient has correct armband on for positive identification. Placed in gown. Bed in low jb4 position. Call light in reach. Side rails up X 1. front desk monitor on. Pulse ox on. NIBP on. 01:25 Initial lab(s) drawn, by ED staff, sent to lab. Inserted saline lock: 18 gauge in right jb4 hand, using aseptic technique. Blood collected. 01:31 Tj Elizondo MD is Attending Physician. tw4 01:35 Hebert Gaviria, RN is Primary Nurse. jb4 01:37 Triage completed. jb4 02:48 XRAY CXR (1 view) In Process Unspecified. EDMS 04:03 Maggie Zuñiga MD is Hospitalizing Provider. tw4 05:55 No provider procedures requiring assistance completed. Patient admitted, IV remains in jb4 place. Administered Medications: 01:35 Drug: DuoNeb (3:1) (2.5 mg - 0.5 mg) 3 ml Route: Nebulizer; jb4 04:00 Drug: Lasix 40 mg Route: IVP; Site: right hand; jb4 04:30 Follow up: Response: No adverse reaction jb4 04:06 Not Given (Other Intervention Used): Lasix 20 mg IVP once jb4 Outcome: 04:03 Decision to Hospitalize by Provider. tw4 06:15 Admitted to Tele accompanied by nurse, via stretcher, room 411, with oxygen, with chart.jb4 06:15 Condition: stable 06:15 Discharge instructions given to patient, family, Instructed on the need for admit, Demonstrated understanding of instructions. 06:37 Patient left the ED. jb4 Signatures: Dispatcher [employer] EDHebert Tim, RN RN jb4 Tj Elizondo MD MD tw4 Lorin Castro cl3
[2019-02-22] MEDS ORDERED: ACETAMINOPHEN 500 MG TAB PO PRN (04:50)
[2019-02-22] MEDS ORDERED: ONDANSETRON 4 MG/2 ML VIAL IV PRN (04:50)
[2019-02-22] MEDS ORDERED: ALBUTEROL 2.5 MG/3 ML NEB SOL NEB SCH (05:00)
[2019-02-22] MEDS ORDERED: NA CHLORIDE 0.9% 1,000 ML IV SCH (05:00)
[2019-02-22 06:57] VITALS: BMI 36.9
--- NOTE | 2019-02-22 07:43 | EKG ---
Test Date: 2019-02-22 Test Time: 01:59:15 Quality Control Engineer: ERNESTO MEASUREMENT RESULTS: Intervals: Rate: 68 WY: 298 QRSD: 86 QT: 402 QTc: 427 [place]: P: 31 W[place]: 298 QRS: -20 T: 5 INTERPRETIVE STATEMENTS: Sinus rhythm with 1st degree AV block with occasional premature ventricular complexes Otherwise normal ECG Compared to ECG 07/02/1998 09:00:00 Ventricular premature complex(es) now present First degree AV block now present Electronically Signed On 02-22-19 07:43:11 LEAF SUCKER OPERATOR by Wang Dyson
[2019-02-22] MEDS ORDERED: POTASSIUM CL SA 10 MEQ TAB PO ONE (08:00)
[2019-02-22] MEDS ORDERED: IPRATROPIUM BROM 0.5MG/2.5ML NEB SCH (08:00)
--- NOTE | 2019-02-22 08:44 | RAD REPORT ---
EXAM DESCRIPTION: RAD - Chest Single View - 02/22/2019 2:47 am CLINICAL HISTORY: SOB Chest pain. COMPARISON: No comparisons FINDINGS: Portable technique limits examination quality. Moderate airspace opacity is present in the right mid lung most likely representing pneumonia. Mild i nterstitial pulmonary edema also seen. The heart is mildly to moderately enlarged. No displaced fract ures. IMPRESSION: Airspace opacity in the right mid lung likely represents pneumonia.
[2019-02-22] MEDS ORDERED: CEFTRIAXONE/SWI 1gm 1 GM/10 ML SYR IV SCH (09:00)
[2019-02-22] MEDS ORDERED: AZITHROMYCIN IV 500 MG in NA CHLORIDE 0.9% 250 ML IVPB SCH (09:00)
[2019-02-22] MEDS ORDERED: CEFTRIAXONE 1 GM/NS 50 ML 1 GM/50 ML BAG IV SCH (09:00)
[2019-02-22] MEDS: ENOXAPARIN 40 MG/0.4 ML SQ SCH (10:08)
[2019-02-22] MEDS: FUROSEMIDE 40 MG/4 ML VIAL IV SCH ×2 (10:14→17:36)
--- NOTE | 2019-02-22 10:53 | P.HP ---
Certification for Inpatient Patient admitted to: Observation With expected LOS: <2 Midnights Patient will require the following post-hospital care: None Practitioner: I am a practitioner with admitting privileges, knowledge of patient current condition, hospital course, and medical plan of care. Services: Services provided to patient in accordance with Admission requirements found in Title 42 Section 412.3 of the Code of Federal Regulations Patient History Date of Service: 02/22/19 Reason for admission: cough and congestion /fever History of Present Illness: Patient is a 68-year-old gentleman who came to the hospital with upper respiratory symptoms. Patient has been congested for the last few days. Patient came to the hospital for further evaluation. In the emergency room his chest x-ray revealed a right lower lobe pneumonia. Patient has his foot history of cardiac disease and has had an elevated BNP. We will get an echocardiogram to further assess. Patient may need pulmonary consultation as well. Continue with IV antibiotic therapy. Continue nebs as needed. Patient may also benefit from a sleep study as an outpatient. Allergies No Known Allergies Allergy (Unverified 02/22/19 06:34) Home Medications: Aspirin 1 tab PO DAILY 02/22/19 Atorvastatin Calcium 1 tab PO DAILY 02/22/19 Doxycycline Hyclate 1 tab PO DAILY 02/22/19 Empagliflozin [Jardiance] 1 tab PO BID 02/22/19 Isosorbide Mononitrate [Isosorbide Mononitrate ER] 1.5 tab PO BID 02/22/19 Latanoprost Ophth [Xalatan 0.005%*] 1 drop EACH EYE BEDTIME 02/22/19 Losartan Potassium 1 tab PO BID 02/22/19 Metoprolol Tartrate 1 tab PO BID 02/22/19 Nifedipine [Nifedipine ER] 1 tab PO BID 02/22/19 Ranibizumab [Lucentis] 1 vial RIGHT EYE SEECOM 02/22/19 Sitagliptin Phos/Metformin HCl [Janumet 50-1,000 mg Tablet] 1 tab PO BID Ticagrelor [Brilinta*] 1 tab PO BID 02/22/19 Tramadol HCl [Ultram] 1 tab PO Q6H PRN 02/22/19 Physical Examination - Vital Signs Temperature: 97.7 F Blood Pressure: 141/73 Pulse: 74 Respirations: 18 Pulse Ox (%): 94 - Studies Laboratory Data (last 24 hrs) 02/22/19 02:05: PT 12.5, INR 1.06, APTT 31.8 02/22/19 02:05: WBC 4.8, Hgb 12.4 L, Hct 38.0 L, Plt Count 235 02/22/19 02:05: Sodium 137, Potassium 3.7, BUN 16, Creatinine 0.69, Glucose 128 H, Magnesium 2.1, Total Bilirubin 0.5, AST 18, ALT 24, Alkaline Phosphatase 47, Lipase 104 02/22/19 01:33: PT Cancelled, INR Cancelled, APTT Cancelled 02/22/19 01:33: WBC Cancelled, Hgb Cancelled, Hct Cancelled, Plt Count Cancelled 02/22/19 01:33: Sodium Cancelled, Potassium Cancelled, BUN Cancelled, Creatinine Cancelled, Glucose Cancelled, Magnesium Cancelled, Total Bilirubin Cancelled, AST Cancelled, ALT Cancelled, Alkaline Phosphatase Cancelled, Lipase Cancelled Assessment & Plan - Problems (Diagnosis) (1) Right lower lobe pneumonia Current Visit: Yes Status: Acute (2) Coronary artery disease Current Visit: Yes Status: Acute (3) Elevated brain natriuretic peptide (BNP) level Current Visit: Yes Status: Acute - Plan Plan: 1. Continue with IV antibiotics 2. Awaiting sputum and blood culture; 3. Repeat chest x-ray in AM 4. Will order CT scan of the chest if pneumonia is not improving 5. Echocardiogram and Cardiology consultation 6. Continue with nebs as needed 7. O2 per protocol 8. Continue with gentle hydration 9. Repeat labs including CBC and renal function in a.m. 10. Outpt follow-up with Pulmonary 11. GI and DVT prophylaxis Discharge Plan: Home Plan to discharge in: 48 Hours - Advance Directives Does patient have a Living Will: No Does patient have a Durable POA for Healthcare: No - Code Status/Comfort Care Code Status Assessed: No Code Status: Full Code Critical Care: No Time Spent Managing PTS Care (In Minutes): 45
[2019-02-22] MEDS ORDERED: ALBUTEROL 2.5 MG/3 ML NEB SOL NEB PRN ×2 (11:05→15:00)
[2019-02-22] MEDS ORDERED: IPRATROPIUM BROM 0.5MG/2.5ML NEB PRN ×2 (11:06→16:00)
--- NOTE | 2019-02-22 12:30 | RAD REPORT ---
EXAM DESCRIPTION: RADChest Pa And Lat (2 Views)02/22/2019 12:22 pm CLINICAL HISTORY: Cough COMPARISON: February 22, 2019 FINDINGS: Partial resolution in the right lung opacities . The heart is normal size IMPRESSION: Partial resolution in right lung opacities probably pneumonia
[2019-02-22] MEDS ORDERED: TRAMADOL HCL 50 MG TAB PO PRN (13:23)
--- NOTE | 2019-02-22 13:26 | P.PN ---
Subjective Date of Service: 02/22/19 Primary Care Provider: Dr. Farrar; Cardiology-Dr. Pacheco Chief Complaint: cough and congestion /fever Subjective: Improving, Doing well Physical Examination - Vital Signs Temperature: 97.6 F Blood Pressure: 108/67 Pulse: 77 Respirations: 18 Pulse Ox (%): 94 - Physical Exam General: Alert, In no apparent distress, Cooperative HEENT: Atraumatic Neck: Supple Respiratory: Other (Some crackle in congestion noted.) Cardiovascular: Normal pulses, Regular rate/rhythm Gastrointestinal: Normal bowel sounds Neurological: Normal speech, Normal strength at 5/5 x4 extr, Normal tone - Studies Laboratory Data (last 24 hrs) 02/22/19 02:05: PT 12.5, INR 1.06, APTT 31.8 02/22/19 02:05: WBC 4.8, Hgb 12.4 L, Hct 38.0 L, Plt Count 235 02/22/19 02:05: Sodium 137, Potassium 3.7, BUN 16, Creatinine 0.69, Glucose 128 H, Magnesium 2.1, Total Bilirubin 0.5, AST 18, ALT 24, Alkaline Phosphatase 47, Lipase 104 02/22/19 01:33: PT Cancelled, INR Cancelled, APTT Cancelled 02/22/19 01:33: WBC Cancelled, Hgb Cancelled, Hct Cancelled, Plt Count Cancelled 02/22/19 01:33: Sodium Cancelled, Potassium Cancelled, BUN Cancelled, Creatinine Cancelled, Glucose Cancelled, Magnesium Cancelled, Total Bilirubin Cancelled, AST Cancelled, ALT Cancelled, Alkaline Phosphatase Cancelled, Lipase Cancelled Medications List Reviewed: Yes Assessment & Plan Discharge Plan: Home Plan to discharge in: 24 Hours Physician Review Additional Text: Impression: Dyspnea likely secondary to acute on chronic systolic CHF with possible underlying right lower lobe pneumonia Hypertension Diabetes mellitus type 2 [id number] Hyperlipidemia Plan: Dyspnea likely secondary to acute on chronic systolic CHF with possible underlying right lower lobe pneumonia: Case discussed with cardiology. Will continue with IV Lasix. Will place on a 1500 cc per day fluid restriction. Will obtain echocardiogram to further evaluate. Chest x-ray shows improvement. Pro calcitonin negative. Doubt pneumonia but will continue to monitor closely. Will change antibiotic to oral Augmentin. Will monitor closely. Will continue to reassess. Likely discharge in the next 24-48 hr with clinical improvement. Hypertension: Medications restarted. Will need to monitor and adjust medication. Diabetes mellitus type 2 [id number]: Will monitor Accu-Cheks. Will provide sliding scale. Will check A1c. Hyperlipidemia: Continue medication. Time Spent Managing Pts Care (In Minutes): 55
[2019-02-22] MEDS ORDERED: GLUCAGON 1 MG/VIAL IM PRN (13:27)
[2019-02-22] MEDS ORDERED: D50W 25 GM/50 ML SYRINGE/VIAL IV PRN (13:27)
[2019-02-22] MEDS ORDERED: [UNRECOGNIZED DRUG - OTHER] RIGHT EYE SCH (13:30)
--- NOTE | 2019-02-22 14:48 | ECHO ---
HEIGHT: 5 ft 9 in WEIGHT: 250 lb 0 oz DATE OF STUDY: 02/22/[address]: Wang Dyson MD 2-DIMENSIONAL: YES M.MODE: YES DOPPLER: YES COLOR FLOW: YES TDS: YES PORTABLE: NO DEFINITY: NO BUBBLE STUDY: NO DIAGNOSIS: CONGESTIVE HEART FAILURE CARDIAC HISTORY: CATHERIZATION: YES SURGERY: NO PROSTHETIC VALVE: NO PACEMAKER: NO MEASUREMENTS (cm) DIASTOLIC (NORMALS) SYSTOLIC (NORMALS) IVSd 1.1 (0.6-1.2) LA Diam 4.8 (1.9-4.0) LVEF 60% LVIDd 4.5 (3.5-5.7) LVIDs 3.1 (2.0-3.5) %FS 32% LVPWd 1.3 (0.6-1.2) Ao Diam 3.2 (2.0-3.7) 2 DIMENSIONAL ASSESSMENT: RIGHT ATRIUM: NORMAL LEFT ATRIUM: DILATED RIGHT VENTRICLE: NORMAL LEFT VENTRICLE: LEFT VENTRICULAR HYPERTROPHY TRICUSPID VALVE: NORMAL MITRAL VALVE: MITRAL ANNULAR CALCIFICATION PULMONIC VALVE: NORMAL AORTIC VALVE: SCLEROSIS PERICARDIAL EFFUSION: NONE AORTIC ROOT: NORMAL LEFT VENTRICULAR WALL MOTION: NORMAL DOPPLER/COLOR FLOW: IMPAIRED LEFT VENTRICULAR RELAXATION. MILD MITRAL AND TRICUSPID REGURGITATION. NO AORTIC STENOSIS OR AORTIC REGURGITATION. NORMAL RIGHT VENTRICULAR SYSTOLIC PRESSURE. COMMENTS: NORMAL LEFT VENTRICULAR EJECTION FRACTION. LEFT VENTRICULAR HYPERTROPHY. MITRAL ANNULAR CALCIFICATION. DILATED LEFT ATRIUM. AORTIC SCLEROSIS WITH NO AORTIC STENOSIS OR AORTIC REGURGITATION. MILD MITRAL AND TRICUSPID REGURGITATION. IMPAIRED LEFT VENTRICULAR RELAXATION. TECHNOLOGIST: Jarod PERRIN
[2019-02-22] MEDS ORDERED: LATANOPROST 0.005% 2.5ML OPTH OPTH SCH (15:30)
[2019-02-22 15:58] VITALS: O2SAT 93
[2019-02-22] MEDS: INSULIN -REGULAR HUMAN 50 UNIT/0.5 ML ML SQ SCH ×2 (16:30→20:48)
[2019-02-22] MEDS: TICAGRELOR 90 MG TABLET PO SCH (20:46)
[2019-02-22] MEDS: LOSARTAN POTASSIUM 50 MG TABLET PO SCH (20:46)
[2019-02-22] MEDS: ISOSORBIDE MONO SR 30 MG TAB PO SCH (20:47)
[2019-02-22] MEDS: METOPROLOL TAR 25 MG TAB PO SCH (20:48)
[2019-02-22] MEDS: NIFEDIPINE XL 30 MG TABLET PO SCH (20:49)
--- NOTE | 2019-02-22 21:20 | HP ---
Date of Admission: 02/22/2019 History Of Present Illness: German came to the hospital with shortness of breath. He is not havin g chest pain. He notes orthopnea. No paroxysmal nocturnal dyspnea. Mild pedal edema. He has a his tory of intracoronary stents, the last one was 2016. Dr. Dyson did it. He has underlying diabetes, obesity, coronary heart disease, dyslipidemia. Medications: Outpatient medications have been metoprolol, nifedipine, sitagliptin, metformin, losart an, Brilinta, atorvastatin, Jardiance, isosorbide mononitrate, aspirin, doxycycline, latanoprost eye drops, tramadol, and ranibizumab for the right eye abnormality. Allergies: HE HAS NO ALLERGIES. Social History: He uses no tobacco. No illegal drugs. Physical Examination: Vital Signs: 5 feet 9, 250 pounds. General: Alert, oriented, pleasant, not in distress. Lungs: Revealed bilateral dependent crackles. Heart: Within normal limits. Abdomen: Soft. Extremities: Mild edema. Laboratory Data: The chest x-ray reveals a possible infiltrate. He does not have an elevated white blood cell count or leftward shift. Impression: He did not have a fever or chills, so I am concerned that can call it pneumonia, may be just a more patchy appearance of diffuse pulmonary edema. I think he needs diuresis, minimal IV flui d intake. Of course, he is receiving antibiotics, which can continue. I would recommend that we swi tch the azithromycin to absorption of oral azithromycin as more than 90% as good as continued IV, so we could cut down some IV fluid. He is getting ceftriaxone perhaps that could be given in smaller volume in 600 m L. FLORY/RUDDYL Voice ID: [id number]
[2019-02-23 05:05] LABS: Urine Appearance CLEAR; Urine Bilirubin NEGATIVE (NEG); Urine Blood NEGATIVE (NEG); Urine Color YELLOW; Urine Glucose 3+ (NEG); Urine Protein 1+ (NEG); Urine Specific Gravity 1.025 (1.005-1.030); Urine Urobilinogen 0.2 mg/dL (0.2-1.0)
[2019-02-23 05:10] LABS: Urine Microscopic Reflex ORDER UMIC
[2019-02-23 05:33] LABS: Urine Bacteria <20 /HPF (NONE SEEN); Urine Culture Reflex Order NOT NEEDED; Urine Mucus 2+ /HPF (NONE SEEN); Urine RBC <5 /HPF (NONE SEEN)
[2019-02-23 06:08] LABS: Absolute Lymphocytes (CBC) 0.8 K/uL (0.7-4.9); Basophils % 0.6 % (0-1.3); Hematocrit 38.7 % (39.6-49.0); Lymphocytes % 16.4 % (15.3-44.8); MPV 7.8 fL (7.6-11.3); RBC Red Blood Cell Count 4.36 M/uL (4.33-5.43)
[2019-02-23 06:20] LABS: ALT/SGPT 24 U/L (12-78); AST/SGOT 15 U/L (15-37); Albumin 3.7 g/dL (3.4-5.0); Alkaline Phosphatase 49 U/L (45-117); BUN Blood Urea Nitrogen 19 mg/dL (7-18); Bicarbonate 29 mmol/L (21-32); Bilirubin Total 0.7 mg/dL (0.2-1.0); Glucose Level 162 mg/dL (74-106); HDL Cholesterol 50 mg/dL (40-60); LDL Cholesterol, Calculated 51 (<130); Magnesium 2.2 mg/dL (1.8-2.4); Phosphorus 3.6 mg/dL (2.5-4.9); Potassium 4.1 mmol/L (3.5-5.1); Protein, Total 8.3 g/dL (6.4-8.2); Sodium Level 138 mmol/L (136-145)
[2019-02-23] MEDS: INSULIN -REGULAR HUMAN 50 UNIT/0.5 ML ML SQ SCH (07:30)
--- NOTE | 2019-02-23 08:29 | RAD REPORT ---
EXAM DESCRIPTION: RAD - Chest Pa And Lat (2 Views) - 02/23/2019 8:18 am CLINICAL HISTORY: follow up CHF Chest pain. COMPARISON: Chest Pa And Lat (2 Views) dated 02/22/2019; Chest Single View dated 02/22/2019 FINDINGS: Reticular opacities are again noted in both lungs appearing unchanged. This may represent mild interstitial pulmonary edema interstitial pneumonia. The heart is normal in size. No displaced f ractures. IMPRESSION: Stable chest since 02/22/2019.
--- NOTE | 2019-02-23 08:50 | P.DS ---
Admission Date: 02/22/19 Discharge Date: 02/23/19 Primary Care Provider: Dr. Farrar; Cardiology-Dr. Pacheco Disposition: ROUTINE DISCHARGE Discharge Condition: GOOD Reason for Admission: cough and congestion /fever Consultations: Cardiology-Dr. Dyson Procedures: ECHO: EF 60% LEFT VENTRICULAR WALL MOTION: NORMAL DOPPLER/COLOR FLOW: IMPAIRED LEFT VENTRICULAR RELAXATION. MILD MITRAL AND TRICUSPID REGURGITATION. NO AORTIC STENOSIS OR AORTIC REGURGITATION. NORMAL RIGHT VENTRICULAR SYSTOLIC PRESSURE. COMMENTS: NORMAL LEFT VENTRICULAR EJECTION FRACTION. LEFT VENTRICULAR HYPERTROPHY. MITRAL ANNULAR CALCIFICATION. DILATED LEFT ATRIUM. AORTIC SCLEROSIS WITH NO AORTIC STENOSIS OR AORTIC REGURGITATION. MILD MITRAL AND TRICUSPID REGURGITATION. IMPAIRED LEFT VENTRICULAR RELAXATION. Follow up CXR: COMPARISON: Chest Pa And Lat (2 Views) dated 02/22/2019; Chest Single View dated 02/22/2019 FINDINGS: Reticular opacities are again noted in both lungs appearing unchanged. This may represent mild interstitial pulmonary edema interstitial pneumonia. The heart is normal in size. No displaced fractures. IMPRESSION: Stable chest since 02/22/2019 Medical Problem List: Dyspnea likely secondary to acute on chronic systolic CHF Hypertension Diabetes mellitus type 2 [id number] Hyperlipidemia CAD Suspect possible obstructive sleep apnea Obesity, BMI 36.9 Brief History of Present Illness: 68-year-old male presented to the emergency room with shortness of breath. Initial chest x-rayed showed possible pneumonia versus CHF. Patient was admitted for further evaluation. Hospital Course: Patient presented with shortness of breath secondary to acute on chronic diastolic CHF. Patient was started on IV Lasix. His condition improved. Echocardiogram shows normal ejection fraction. Patient likely with diastolic dysfunction. There was some question of pneumonia on initial chest x-ray. Repeat chest x-ray shows likely more pulmonary edema. Pro calcitonin negative. Antibiotics have been discontinued. At discharge patient will continue with a 1500 cc per day fluid restriction and low-salt diet. At discharge he will continue with Lasix 40 mg daily. He is to monitor his weight daily. If his weight increases by more than 5 lb patient may require further adjustment in his medication. He may contact his tooling inspector for further recommendations. Recommend follow up with his tooling inspector within 1-2 weeks to follow up this hospitalization. Patient may also follow up with PCP to further address as well. Education on CHF will be provided. Patient with underlying hypertension. This has remained stable. At discharge he will continue with his current medications-losartan 50 mg 1 pill twice daily , metoprolol 25 mg 1 pill twice daily, and Nifedipine ER ER 30 mg 1 pill twice daily.. Recommend to maintain blood pressure less 150/80. Further adjustment can be done by his PCP or cardiology. Patient with diabetes mellitus type 2 non insulin dependent. This appears stable. At discharge he will continue with his current medications Jardiance 10 mg 1 pill twice daily and Janumet mg 1 pill twice daily. Patient is seen by endocrinology. Recommend follow up with Endocrinology to further evaluate. Patient with hyperlipidemia. At discharge patient will continue with his current medication Lipitor 20 mg daily. Patient may have underlying obstructive sleep apnea. Will recommend patient to have outpatient sleep study to further evaluate. May benefit with pulmonary evaluation as an outpatient to further address. Patient with history of rosacea. At discharge he will continue with doxycycline as directed. Patient with history of CAD. At discharge he will continue with aspirin 81 mg daily and isosorbide ER 30 mg 1.5 tablets twice daily. He will also continue with his hypertensive and hyperlipidemia medications as above. Recommend a follow up with cardiology as directed. Vital Signs/Physical Exam: Temp Pulse Resp BP Pulse Ox 97 F 72 18 125/67 92 02/23/19 04:00 02/23/19 04:00 02/23/19 04:00 02/23/19 04:00 02/23/19 04:00 General: Alert, In no apparent distress, Oriented x3, Cooperative HEENT: Atraumatic Neck: Supple Respiratory: Clear to auscultation bilaterally, Normal air movement Cardiovascular: Normal pulses, Regular rate/rhythm Gastrointestinal: Normal bowel sounds, Soft and benign, Non-distended, No tenderness, No masses, No rebound, No guarding Musculoskeletal: No erythema, No tenderness, No warmth Integumentary: No tenderness/swelling, No erythema, No warmth, No cyanosis Neurological: Normal speech, Normal strength at 5/5 x4 extr, Normal tone, Normal affect Laboratory Data at Discharge: WBC 5.2 K/uL (4.3-10.9) 02/23/19 05:34 Hgb 13.0 g/dL (13.6-17.9) L 02/23/19 05:34 Hct 38.7 % (39.6-49.0) L 02/23/19 05:34 Plt Count 268 K/uL (152-406) 02/23/19 05:34 PT 12.5 SECONDS (9.5-12.5) 02/22/19 02:05 INR 1.06 02/22/19 02:05 APTT 31.8 SECONDS (24.3-36.9) 02/22/19 02:05 Sodium 138 mmol/L (136-145) 02/23/19 05:34 Potassium 4.1 mmol/L (3.5-5.1) 02/23/19 05:34 BUN 19 mg/dL (7-18) H 02/23/19 05:34 Creatinine 0.67 mg/dL (0.55-1.3) 02/23/19 05:34 Glucose 162 mg/dL (74-106) H 02/23/19 05:34 Phosphorus 3.6 mg/dL (2.5-4.9) 02/23/19 05:34 Magnesium 2.2 mg/dL (1.8-2.4) 02/23/19 05:34 Total Bilirubin 0.7 mg/dL (0.2-1.0) 02/23/19 05:34 AST 15 U/L (15-37) 02/23/19 05:34 ALT 24 U/L (12-78) 02/23/19 05:34 Alkaline Phosphatase 49 U/L (45-117) 02/23/19 05:34 Triglycerides 92 mg/dL (<150) 02/23/19 05:34 Cholesterol 119 mg/dL (<200) 02/23/19 05:34 HDL Cholesterol 50 mg/dL (40-60) 02/23/19 05:34 Cholesterol/HDL Ratio 2.38 02/23/19 05:34 Lipase 104 U/L (73-393) 02/22/19 02:05 Home Medications: Aspirin 1 tab PO DAILY 02/22/19 Atorvastatin Calcium 1 tab PO DAILY 02/22/19 Doxycycline Hyclate 1 tab PO DAILY 02/22/19 Empagliflozin [Jardiance] 1 tab PO BID 02/22/19 Isosorbide Mononitrate [Isosorbide Mononitrate ER] 1.5 tab PO BID 02/22/19 Latanoprost Ophth [Xalatan 0.005%*] 1 drop EACH EYE BEDTIME 02/22/19 Losartan Potassium 1 tab PO BID 02/22/19 Metoprolol Tartrate 1 tab PO BID 02/22/19 Nifedipine [Nifedipine ER] 1 tab PO BID 02/22/19 Ranibizumab [Lucentis] 1 vial RIGHT EYE SEECOM 02/22/19 Sitagliptin Phos/Metformin HCl [Janumet 50-1,000 mg Tablet] 1 tab PO BID Ticagrelor [Brilinta*] 1 tab PO BID 02/22/19 Tramadol HCl [Ultram] 1 tab PO Q6H PRN 02/22/19 Furosemide [Lasix] 40 mg PO DAILY #30 tab 02/23/19 New Medications: Furosemide [Lasix] 40 mg PO DAILY #30 tab Patient Discharge Instructions: 1. Recommend follow up with his PCP within 1 week to follow up this hospitalization. 2. Patient presented with shortness of breath secondary to acute on chronic diastolic CHF. Patient was started on IV Lasix. His condition improved. Echocardiogram shows normal ejection fraction. Patient likely with diastolic dysfunction. There was some question of pneumonia on initial chest x-ray. Repeat chest x-ray shows likely more pulmonary edema. Pro calcitonin negative. Antibiotics have been discontinued. At discharge patient will continue with a 1500 cc per day fluid restriction and low-salt diet. At discharge he will continue with Lasix 40 mg daily. He is to monitor his weight daily. If his weight increases by more than 5 lb patient may require further adjustment in his medication. He may contact his tooling inspector for further recommendations. Recommend follow up with his tooling inspector within 1-2 weeks to follow up this hospitalization. Patient may also follow up with PCP to further address as well. Education on CHF will be provided. 3. Patient with underlying hypertension. This has remained stable. At discharge he will continue with his current medications-losartan 50 mg 1 pill twice daily, metoprolol 25 mg 1 pill twice daily, and Nifedipine ER ER 30 mg 1 pill twice daily.. Recommend to maintain blood pressure less 150/80. Further adjustment can be done by his PCP or cardiology. 4. Patient with diabetes mellitus type 2 non insulin dependent. This appears stable. At discharge he will continue with his current medications Jardiance 10 mg 1 pill twice daily and Janumet mg 1 pill twice daily. Patient is seen by endocrinology. Recommend follow up with Endocrinology to further evaluate. 5. Patient with hyperlipidemia. At discharge patient will continue with his current medication Lipitor 20 mg daily. 6. Patient may have underlying obstructive sleep apnea. Will recommend patient to have outpatient sleep study to further evaluate. May benefit with pulmonary evaluation as an outpatient to further address. 7. Patient with history of rosacea. At discharge he will continue with doxycycline as directed. 8. Patient with history of CAD. At discharge he will continue with aspirin 81 mg daily and isosorbide ER 30 mg 1.5 tablets twice daily. He will also continue with his hypertensive and hyperlipidemia medications as above. Recommend a follow up with cardiology as directed. Diet: ADA Activity: Ad manolo Time spent managing pt's care (in minutes): 55
[2019-02-23] MEDS ORDERED: ATORVASTATIN 20 MG TAB PO SCH (09:00)
[2019-02-23] MEDS ORDERED: ASPIRIN 81 MG CHEWABLE TABLET PO SCH (09:00)
[2019-02-23] MEDS: FUROSEMIDE 40 MG/4 ML VIAL IV SCH (09:00)
[2019-02-23 09:35] VITALS: BP 106/71; TEMP 97.2
[2019-02-23] MEDS: TICAGRELOR 90 MG TABLET PO SCH (09:46)
[2019-02-23] MEDS: ISOSORBIDE MONO SR 30 MG TAB PO SCH (09:46)
[2019-02-23] MEDS: LOSARTAN POTASSIUM 50 MG TABLET PO SCH (09:47)
[2019-02-23] MEDS: NIFEDIPINE XL 30 MG TABLET PO SCH (09:47)
[2019-02-23] MEDS: METOPROLOL TAR 25 MG TAB PO SCH (09:47)
[2019-02-23] MEDS: ENOXAPARIN 40 MG/0.4 ML SQ SCH (09:48)
== END 2019-02-23 10:08 | disposition home or self-care (01) ==
LOC: ER 01:11 → ERHOLD 04:58 → 4TH 06:08
PROVIDERS: ADMIT Hospitalist; ATTEND Hospitalist
DX: I11.0 Hypertensive heart disease with heart failure (principal); I50.33 Acute on chronic diastolic (congestive) heart failure; E11.9 Type 2 diabetes mellitus without complications; E78.5 Hyperlipidemia, unspecified; L71.9 Rosacea, unspecified; I25.10 Atherosclerotic heart disease of native coronary artery without angina pectoris
CPT/HCPCS: 93005; 93306; 87040 ×2; 85025 ×2; 80048; 36415 ×2; 83735 ×2; 82550; 84100; 85610; 80061; 82947 ×5; 85379; 80076; 83605; 85730; 84484; 82553; 83690; 80053; 84145; 83880 ×2; 71045; 71046 ×2; 94640 ×2; 94760 ×2; 96374; 99285; J1940 ×4; J0456; J1650 ×2; J0696; J7030 ×2; G0378 ×3; 81003; 81015

== ENCOUNTER 2022-06-18 08:56 | Emergency (ER) | payer OTHER ==
--- OUTSIDE RECORDS SUMMARY | 2022-06-18 09:03 | XMS REPORT | Continuity of Care Document ---
:1950 Author Organization [facility] t Address [address] [facility] [address] [place] [address] Care Team Providers Name Role Phone PITO ERNST Primary Care Physician Unavailable MARTY BATES Attending Clinician Unavailable ADORE CRESPO Attending Clinician Unavailable ADORE CRESPO Attending Clinician Unavailable JUAN NUNEZ Attending Clinician Unavailable EbJuan Sung Attending Clinician Unknown, Attending Attending Clinician Unavailable Doctor Unassigned, [place]ham Attending Clinician Unavailable Elma Attending Clinician Unavailable David Rocha MD Attending Clinician Provider, Unknown Attending Clinician Unavailable Adore Crespo MD Attending Clinician Marty Jade Attending Clinician Sarath Vega Attending Clinician [phone] ANGY FARRIS Attending Clinician Unavailable Marcia Long RN Attending Clinician Unavailable Only, Ang Db Test Attending Clinician Unavailable MARTY SUMNER Attending Clinician Unavailable Conrad DUARTE, Genie Attending Clinician GENIE MARTINES Attending Clinician Unavailable LEEANNA FLORES Attending Clinician Unavailable 1, [facility] Sleep Lab Bed Attending Clinician Unavailable Only, Adc Test Attending Clinician Unavailable Herbert Brito MD Attending Clinician NEERAJ HILTON Attending Clinician Unavailable Nurse, [facility] Pob Immunization Attending Clinician Unavailable Neeraj Hilton DO Attending Clinician Marty Bates MD Attending Clinician Pob, [facility] Lab Main Attending Clinician Unavailable RINA ESCOBAR Attending Clinician Unavailable CHARLES ESPINOZA Attending Clinician Unavailable JASMIN OTT Attending Clinician Unavailable DAX CERVANTES Attending Clinician Unavailable Araseli Xiong Attending Clinician Unavailable MARTY BATES Admitting Clinician Unavailable Elma Admitting Clinician Unavailable DAVID ROCHA Admitting Clinician Unavailable ANGY FARRIS Admitting Clinician Unavailable Marty Bates MD Admitting Clinician TESSY PROCTOR Admitting Clinician Unavailable Payers Payer Name Policy Type Policy Number Effective Date Expiration Date S shimon [facility] [id number] 2020 MEDICARE ADV HMO 00:00:00 [facility] [id number] (PPO) [employer] MEDICARE [id number] 2016 2020 ERS 00:00:00 00:00:00 Problems Condition Condition Condition Status Onset Resolution Last Treating Co mments Source Name Details Category Date Date Treatment Clinician Date Abnormal Abnormal Disease Active 2021-02 [facility] di stress stress 1-04 st test test 00:00: Hospita 00 l Male Male Problem Active [place] hypogonadi Hypogonadi 3-30 Me tro sm sm 00:00: Urology 00 Chest Chest Disease Active [facility] pain, rule pain, rule 3-23 st out acute out acute 00:00: Hosp erik myocardial myocardial 00 l infarction infarction Primary Primary Problem Active 2020-02 [place] erectile Erectile 2-03 [facility] dysfunctio Dysfunctio 00:00: Ur ology n n 00 ONEAL ONEAL Disease Active [facility] (dyspnea (dyspnea 1-17 st on on 00:00: Hospita exertion) exertion) 00 l Rash of Rash of Problem Active [place] groin Groin 7-29 [facility] 00:00: Urology 00 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 ston tumor of Tumor of 2-19 [facility] prostate Prostate 00:00: Urolog y 00 Raised Raised Problem Active 2017-02 [place] prostate Prostate 0-03 [facility] specific Specific 00:00: Urolog y antigen Antigen 00 Reduced Reduced Problem Active 2017-02 [place] libido Libido 0-03 [facility] 00:00: Urology 00 History of History of Problem Active 2017-02 [facility] [place] 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: Urolog y of testis of Testis 00 Arteriopat Arteriopat Problem Active 2017-02 [facility] [place] hic hic 0-03 [facility] impotence Impotence 00:00: Urol ogy 00 SOB SOB Disease Active [facility] (shortness (shortness 2-03 st of breath) of breath) 00:00: Ho spita 00 l Essential Essential Disease Active Uni vers hypertensi hypertensi 09-09 it y of on on 00:00: [address] Cardiac Cardiac Disease Active Univers murmur murmur 09-09 ity of 00:00: [address] Impacted Impacted Disease Active Unive rs cerumen of cerumen of 09-09 [place] [address] [place] [address] Diabetes Diabetes Disease Active [facility] di mellitus mellitus st Hospita l Allergies, Adverse Reactions, Alerts Allergy Allergy Status Severity Reaction(s) Onset Inactive Treating Comm ents Source Name Type Date Date Clinician Diphenhy Propensi Active Anaphylaxis M [facility]i dramine ty to 2-03 st Hcl adverse 00:00: Hospita reaction 00 l s to drug NO KNOWN Drug Active Univers ALLERGIE Class ity of S [facility] Social History Social Habit Start Date Stop Date Quantity Comments Source History [facility] University o f Alcohol Frequency [facility] edical [place] History [facility] o f Alcohol Std Drinks [facility] History [facility] o f Alcohol Binge [facility] al [place] Gender identity [facility] Sexual orientation [facility] History of Social 2022-04-16 2022-04-[address] function 00:00:00 00:00:00 Hospital Exposure to 2022-02-24 2022-03-06 Not sure University of SARS-CoV-2 (event) 00:00:00 09:01:00 [facility] Alcohol intake 2021-12-16 2021-12-16 Current [facility] 00:00:00 00:00:00 non-drinker of Hospital alcohol (finding) Tobacco use and 2019-02-24 2019-02-24 Smokeless tobacco [facility] exposure 00:00:00 00:00:00 non-user Hospital Alcohol Comment 2015-09-10 2015-09-10 occasional Universit y of 00:00:00 00:00:00 [facility] History of tobacco 1999-09-10 Cigarette Smoker University of use 00:00:00 [facility] Sex Ass[birth year] At [birth year] [facility] 00:00:00 00:00:00 Hospital Smoking Status Start Date Stop Date Source Never Smoker Huan solomon Ex-smoker 2019-02-24 00:00:00 2019-02-24 00:00:00 [facility] Medications Ordered Filled Start Stop Current Ordering Indication Dosage Frequency Signature Comments Components Source Medication Medication Date Date Medication? Clinician (SIG) Name Name ranolazine 2021-02 Yes 500mg QD Take 1 Meth tereza (RANEXA) 02-[address] 500 MG 12 11:53: (500 mg Hospi ta hr ER 01 total) by l tablet mouth daily. potassium 2021-02 Yes 1{tbl} QD Take 1 Meth tereza chloride 20 02-[address] mEq tablet 11:53: mouth Hospit a extended 01 daily. l release nitroglycer 2021-[address] 1 Met hodi in 02-[address] (NITROSTAT) 11:53: (0.4 mg Hos osbaldo 0.4 MG SL 01 total) l tablet under the tongue every 5 (five) minutes as needed for chest pain. aspirin 2021-02 No 81mg QD Take 1 [facility] (ECOTRIN) 02-13 12-07 tablet (81 st 81 MG 00:00: 05:59 mg total) Hospit a enteric 00 :00 by mouth l coated daily for tablet 30 days. latanoprost 2021-02 Yes 1[drp] QD Administer [facility] (XALATAN) 02-[address] 0.005 % 11:54: both eyes Hospi ta ophthalmic 00 nightly. l solution ticagrelor 2021-02 Yes 90mg Q.5D Take 90 mg M ethodi (BRILINTA) [address] 90 mg 11:54: (two) Hospita tablet 00 times a l day. metoprolol 2021-02 Yes 25mg Q.5D Take 25 mg M ethodi tartrate 1-[address] (LOPRESSOR) 11:54: (two) Hospi ta 25 mg 00 times a l tablet day. sitaGLIPtin 2021-02 Yes 1{tbl} Q.5D Take 1 Me thodi -metformin 1-[address] (JANUMET) 11:54: mouth 2 Hospi ta 50-1,000 mg 00 (two) l per tablet times a day with meals. atorvastati 2021-02 Yes 20mg QD Take 20 mg Methodi n (LIPITOR) 1-[address] 20 MG 11:54: daily. Hospita tablet 00 Default OP l ins ranibizumab 2021-02 Yes .3mg Administer [facility] (LUCENTIS) [address] 0.3 mg/0.05 11:54: the right H ospita mL 00 eye. every l injection 6 weeks NIFEdipine 2021-02 Yes 30mg Q.5D Take 30 mg M ethodi XL 1-[address] (PROCARDIA 11:54: (two) Hospit a XL) 30 MG 00 times a l 24 hr day. tablet clonIDINE 2021-02 Yes .1mg Q6H Take 0.1 Meth tereza (CATAPRES) 1-[address] 0.1 MG 11:54: mouth Hospita tablet 00 every 6 l (six) hours as needed for high blood pressure. empaglifloz 2021-02 Yes 10mg Q.5D Take 10 mg [facility] in 1-[address] (Jardiance) 11:54: (two) Hospi ta 10 mg 00 times a l tablet day. tablet doxycycline 2021-02 Yes 50mg QD Take 50 mg [facility] hyclate 50 1-[address] mg tablet 11:54: every Hospita 00 morning. l furosemide 2021-02 Yes Q.5D Take by Meth tereza (LASIX) 40 1-[address] mg tablet 11:54: (two) Hospita 00 times a l day. 1.5 tablets in am and 1 tablet in pm traMADoL 2021-02 Yes [id number] 50mg Q6H Take 50 mg Me thodi (ULTRAM) 50 1-[address] mg tablet 11:54: every 6 Hospi ta 00 (six) l hours as needed for moderate pain .acute pain. dorzolamide 2021-02 Yes 1[drp] Q.5D Administer [facility] -timoloL 1-[address] (COSOPT) 11:54: the right Hosp erik 22.3-6.8 00 eye 2 l mg/mL (two) ophthalmic times a solution day. losartan 2021-02 Yes 25mg Q.5D Take 1 [facility] (COZAAR) 25 1-05 tablet (25 st MG tablet 00:00: mg total) Hos osbaldo 00 by mouth 2 l (two) times a day. aspirin 2021-02- No 81mg QD Take 81 mg Met hodi (ECOTRIN) 1-04 11-[address] 81 MG 07:17: 00:00 daily. Hospita enteric 44 :00 l coated tablet losartan 2021- No 25mg QD Take 1 Method i (COZAAR) 25 3-26 11-05 tablet (25 s t MG tablet 00:00: 00:00 mg total) Ho spita 00 :00 by mouth l daily. isosorbide No 60mg Q.5D Take 1 Meth tereza mononitrate 3-25 03-26 tablet (60 s t (IMDUR) 60 00:00: 04:59 mg total) H ospita MG 24 hr 00 :00 by mouth 2 l tablet (two) times a day. metoprolol Yes 25mg Take 25 mg U nivers succinate 3-16 by mouth ity of XL 25 mg 24 15:35: [place] tablet 55 [facility] Branch sitagliptan Yes 1{tbl} Take 1 Un xochitl -metformin 3-16 tablet by ity of (JANUMET) 15:35: mouth 2 [place] 50-1,000 mg 55 (two) Medical per tablet times Branch daily with meals. ticagrelor Yes 90mg Take 90 mg U nivers 90 mg 3-16 by mouth 2 ity of tablet 15:35: (two) [place] 55 times Medical daily. Branch canaglifloz Yes Take by Uni vers in 3-16 mouth. ity of (INVOKANA) 15:35: [place] 100 mg 55 Medical tablet Branch doxycycline Yes Take by Uni vers hyclate 50 3-16 mouth. ity of mg TbEC 15:35: [place] [address] Medical Branch aspirin Yes 81mg Take 81 mg Univ ers (ASPIRIN 3-16 by mouth ity of CHILDRENS) 15:35: daily. [place] 81 mg Medical chewable Branch tablet atorvastati Yes 20mg Take 20 mg Univers n 20 mg 3-16 by mouth ity of tablet 15:35: at [place] [address] bedtime. Medical Branch latanoprost Yes 1[drp] 1 Drop Un xochitl 0.005 % 3-16 every ity of ophthalmic 15:35: evening. [place] drops Medical Branch ranibizumab Yes by Univer s (LUCENTIS) 3-16 Intravitre ity of 0.3 mg/0.05 15:35: al route. [place] mL Soln Medical Branch isosorbide Yes 1.5{tbl Take 1.5 Univers mononitrate 3-16 } tablets by it y of 30 mg 24 hr 15:35: mouth 2 [place] tablet 55 (two) Medical times Branch daily. furosemide Yes 40mg Take 40 mg U nivers 40 mg 3-16 by mouth ity of tablet 15:35: daily. [place] [address] Medical Branch NIFEDIPINE Yes 30mg Take 30 mg U nivers ER ORAL 3-16 by mouth ity of 15:35: daily. [place] [address] Medical Branch losartan 50 Yes 2 (two) Uni vers mg tablet 3-16 times ity of 15:35: daily. [place] [address] Medical Branch metoprolol Yes 25mg Take 25 mg U nivers succinate 3-16 by mouth ity of XL 25 mg 24 15:35: [place]. [place] hr tablet [facility] Branch sitagliptan Yes 1{tbl} Take 1 Un xochitl -metformin 3-16 tablet by ity of (JANUMET) 15:35: mouth 2 [place] 50-1,000 mg (two) Medical per tablet times Branch daily with meals. ticagrelor Yes 90mg Take 90 mg U nivers 90 mg 3-16 by mouth 2 ity of tablet 15:35: (two) [place] times Medical daily. Branch canaglifloz Yes Take by Uni vers in 3-16 mouth. ity of (INVOKANA) 15:35: [place] 100 mg Medical tablet Branch doxycycline Yes Take by Uni vers hyclate 50 3-16 mouth. ity of mg TbEC 15:35: [place] [address] Medical Branch aspirin Yes 81mg Take 81 mg Univ ers (ASPIRIN 3-16 by mouth ity of CHILDRENS) 15:35: daily. [place] 81 mg Medical chewable Branch tablet atorvastati Yes 20mg Take 20 mg Univers n 20 mg 3-16 by mouth ity of tablet 15:35: at [place] [address] bedtime. Medical Branch latanoprost Yes 1[drp] 1 Drop Un xochitl 0.005 % 3-16 every ity of ophthalmic 15:35: evening. [place] drops Medical Branch ranibizumab Yes by Univer s (LUCENTIS) 3-16 Intravitre ity of 0.3 mg/0.05 15:35: al route. [place] mL Soln Medical Branch isosorbide Yes 1.5{tbl Take 1.5 Univers mononitrate 3-16 } tablets by it y of 30 mg 24 hr 15:35: mouth 2 [place] tablet (two) Medical times Branch daily. furosemide Yes 40mg Take 40 mg U nivers 40 mg 3-16 by mouth ity of tablet 15:35: daily. [place] [address] Medical Branch NIFEDIPINE Yes 30mg Take 30 mg U nivers ER ORAL 3-16 by mouth ity of 15:35: daily. [place] [address] Medical Branch losartan 50 Yes 2 (two) Uni vers mg tablet 3-16 times ity of 15:35: daily. [place] [address] Medical Branch metoprolol Yes 25mg Take 25 mg U nivers succinate 3-16 by mouth ity of XL 25 mg 24 15:35: [place]. [place] hr tablet Medical Branch sitagliptan Yes 1{tbl} Take 1 Un xochitl -metformin 3-16 tablet by ity of (JANUMET) 15:35: mouth 2 [place] 50-1,000 mg (two) Medical per tablet times Branch daily with meals. ticagrelor 2022-0 Yes 90mg Take 90 mg U nivers 90 mg 3-16 by mouth 2 ity of tablet 15:35: (two) [place] [address] times Medical daily. Branch canaglifloz Yes Take by Uni vers in 3-16 mouth. ity of (INVOKANA) 15:35: [place] 100 mg Medical tablet Branch doxycycline Yes Take by Uni vers hyclate 50 3-16 mouth. ity of mg TbEC 15:35: [place] [address] Medical Branch aspirin Yes 81mg Take 81 mg Univ ers (ASPIRIN 3-16 by mouth ity of CHILDRENS) 15:35: daily. [place] 81 mg Medical chewable Branch tablet atorvastati Yes 20mg Take 20 mg Univers n 20 mg 3-16 by mouth ity of tablet 15:35: at [place] [address] bedtime. Medical Branch latanoprost Yes 1[drp] 1 Drop Un xochitl 0.005 % 3-16 every ity of ophthalmic 15:35: evening. [place] drops Medical Branch ranibizumab Yes by Univer s (LUCENTIS) 3-16 Intravitre ity of 0.3 mg/0.05 15:35: al route. [place] mL Soln Medical Branch isosorbide Yes 1.5{tbl Take 1.5 Univers mononitrate 3-16 } tablets by it y of 30 mg 24 hr 15:35: mouth 2 [place] tablet 55 (two) Medical times Branch daily. furosemide Yes 40mg Take 40 mg U nivers 40 mg 3-16 by mouth ity of tablet 15:35: daily. [place] [address] Medical Branch NIFEDIPINE Yes 30mg Take 30 mg U nivers ER ORAL 3-16 by mouth ity of 15:35: daily. [place] [address] Medical Branch losartan 50 Yes 2 (two) Uni vers mg tablet 3-16 times ity of 15:35: daily. [place] [address] Medical Branch metoprolol Yes 25mg Take 25 mg U nivers succinate 3-16 by mouth ity of XL 25 mg 24 15:35: [place]. [place] hr tablet Medical Branch sitagliptan Yes 1{tbl} Take 1 Un xochitl -metformin 3-16 tablet by ity of (JANUMET) 15:35: mouth 2 [place] 50-1,000 mg 55 (two) Medical per tablet times Branch daily with meals. ticagrelor Yes 90mg Take 90 mg U nivers 90 mg 3-16 by mouth 2 ity of tablet 15:35: (two) [place] [address] times Medical daily. Branch canaglifloz Yes Take by Uni vers in 3-16 mouth. ity of (INVOKANA) 15:35: [place] 100 mg Medical tablet Branch doxycycline Yes Take by Uni vers hyclate 50 3-16 mouth. ity of mg TbEC 15:35: [place] [address] Medical Branch aspirin Yes 81mg Take 81 mg Univ ers (ASPIRIN 3-16 by mouth ity of CHILDRENS) 15:35: daily. [place] 81 mg Medical chewable Branch tablet atorvastati Yes 20mg Take 20 mg Univers n 20 mg 3-16 by mouth ity of tablet 15:35: at [place] [address] bedtime. Medical Branch latanoprost Yes 1[drp] 1 Drop Un xochitl 0.005 % 3-16 every ity of ophthalmic 15:35: evening. [place] drops Medical Branch ranibizumab Yes by Univer s (LUCENTIS) 3-16 Intravitre ity of 0.3 mg/0.05 15:35: al route. [place] mL Soln Medical Branch isosorbide Yes 1.5{tbl Take 1.5 Univers mononitrate 3-16 } tablets by it y of 30 mg 24 hr 15:35: mouth 2 [place] tablet 55 (two) Medical times Branch daily. furosemide Yes 40mg Take 40 mg U nivers 40 mg 3-16 by mouth ity of tablet 15:35: daily. [place] [address] Medical Branch NIFEDIPINE Yes 30mg Take 30 mg U nivers ER ORAL 3-16 by mouth ity of 15:35: daily. [place] [address] Medical Branch losartan 50 Yes 2 (two) Uni vers mg tablet 3-16 times ity of 15:35: daily. [place] [address] Medical Branch metoprolol Yes 25mg Take 25 mg U nivers succinate 3-16 by mouth ity of XL 25 mg 24 15:35: daily. [place] hr tablet 55 Medical Branch sitagliptan Yes 1{tbl} Take 1 Un xochitl -metformin 3-16 tablet by ity of (JANUMET) 15:35: mouth 2 [place] 50-1,000 mg 55 (two) Medical per tablet times Branch daily with meals. ticagrelor Yes 90mg Take 90 mg U nivers 90 mg 3-16 by mouth 2 ity of tablet 15:35: (two) [place] 55 times Medical daily. Branch canaglifloz Yes Take by Uni vers in 3-16 mouth. ity of (INVOKANA) 15:35: [place] 100 mg 55 Medical tablet Branch doxycycline Yes Take by Uni vers hyclate 50 3-16 mouth. ity of mg TbEC 15:35: [place] [address] Medical Branch aspirin Yes 81mg Take 81 mg Univ ers (ASPIRIN 3-16 by mouth ity of CHILDRENS) 15:35: daily. [place] 81 mg 55 Medical chewable Branch tablet atorvastati Yes 20mg Take 20 mg Univers n 20 mg 3-16 by mouth ity of tablet 15:35: at [place] [address] bedtime. Medical Branch latanoprost Yes 1[drp] 1 Drop Un xochitl 0.005 % 3-16 every ity of ophthalmic 15:35: evening. [place] drops Medical Branch ranibizumab Yes by Univer s (LUCENTIS) 3-16 Intravitre ity of 0.3 mg/0.05 15:35: al route. [place] mL Soln 55 Medical Branch isosorbide Yes 1.5{tbl Take 1.5 Univers mononitrate 3-16 } tablets by it y of 30 mg 24 hr 15:35: mouth 2 [place] tablet 55 (two) Medical times Branch daily. furosemide 0 Yes 40mg Take 40 mg U nivers 40 mg 3-16 by mouth ity of tablet 15:35: daily. [place] [address] Medical Branch NIFEDIPINE 0 Yes 30mg Take 30 mg U nivers ER ORAL 3-16 by mouth ity of 15:35: daily. [place] [address] Medical Branch losartan 50 0 Yes 2 (two) Uni vers mg tablet 3-16 times ity of 15:35: daily. [place] [address] Medical Branch metoprolol Yes 25mg Take 25 mg U nivers succinate 3-16 by mouth ity of XL 25 mg 24 15:35: daily. [place] hr tablet Medical Branch sitagliptan Yes 1{tbl} Take 1 Un xochitl -metformin 3-16 tablet by ity of (JANUMET) 15:35: mouth 2 [place] 50-1,000 mg 55 (two) Medical per tablet times Branch daily with meals. ticagrelor Yes 90mg Take 90 mg U nivers 90 mg 3-16 by mouth 2 ity of tablet 15:35: (two) [place] [address] times Medical daily. Branch canaglifloz Yes Take by Uni vers in 3-16 mouth. ity of (INVOKANA) 15:35: [place] 100 mg Medical tablet Branch doxycycline Yes Take by Uni vers hyclate 50 3-16 mouth. ity of mg TbEC 15:35: [place] [address] Medical Branch aspirin Yes 81mg Take 81 mg Univ ers (ASPIRIN 3-16 by mouth ity of CHILDRENS) 15:35: daily. [place] 81 mg Medical chewable Branch tablet atorvastati Yes 20mg Take 20 mg Univers n 20 mg 3-16 by mouth ity of tablet 15:35: at [place] [address] bedtime. Medical Branch latanoprost Yes 1[drp] 1 Drop Un xochitl 0.005 % 3-16 every ity of ophthalmic 15:35: evening. [place] drops Medical Branch ranibizumab Yes by Univer s (LUCENTIS) 3-16 Intravitre ity of 0.3 mg/0.05 15:35: al route. [place] mL Soln Medical Branch isosorbide Yes 1.5{tbl Take 1.5 Univers mononitrate 3-16 } tablets by it y of 30 mg 24 hr 15:35: mouth 2 [place] tablet 55 (two) Medical times Branch daily. furosemide Yes 40mg Take 40 mg U nivers 40 mg 3-16 by mouth ity of tablet 15:35: daily. [place] [address] Medical Branch NIFEDIPINE Yes 30mg Take 30 mg U nivers ER ORAL 3-16 by mouth ity of 15:35: daily. [place] [address] Medical Branch losartan 50 0 Yes 2 (two) Uni vers mg tablet 3-16 times ity of 15:35: daily. [place] [address] Medical Branch metoprolol 0 Yes 25mg Take 25 mg U nivers succinate 3-16 by mouth ity of XL 25 mg 24 15:35: daily. [place] hr tablet 55 Medical Branch sitagliptan Yes 1{tbl} Take 1 Un xochitl -metformin 3-16 tablet by ity of (JANUMET) 15:35: mouth 2 [place] 50-1,000 mg 55 (two) Medical per tablet times Branch daily with meals. ticagrelor Yes 90mg Take 90 mg U nivers 90 mg 3-16 by mouth 2 ity of tablet 15:35: (two) [place] [address] times Medical daily. Branch canaglifloz Yes Take by Uni vers in 3-16 mouth. ity of (INVOKANA) 15:35: [place] 100 mg Medical tablet Branch doxycycline Yes Take by Uni vers hyclate 50 3-16 mouth. ity of mg TbEC 15:35: [place] [address] Medical Branch aspirin Yes 81mg Take 81 mg Univ ers (ASPIRIN 3-16 by mouth ity of CHILDRENS) 15:35: daily. [place] 81 mg Medical chewable Branch tablet atorvastati Yes 20mg Take 20 mg Univers n 20 mg 3-16 by mouth ity of tablet 15:35: at [place] [address] bedtime. Medical Branch latanoprost Yes 1[drp] 1 Drop Un xochitl 0.005 % 3-16 every ity of ophthalmic 15:35: evening. [place] drops Medical Branch ranibizumab Yes by Univer s (LUCENTIS) 3-16 Intravitre ity of 0.3 mg/0.05 15:35: al route. [place] mL Soln Medical Branch isosorbide Yes 1.5{tbl Take 1.5 Univers mononitrate 3-16 } tablets by it y of 30 mg 24 hr 15:35: mouth 2 [place] tablet 55 (two) Medical times Branch daily. furosemide 2022-0 Yes 40mg Take 40 mg U nivers 40 mg 3-16 by mouth ity of tablet 15:35: daily. [place] [address] Medical Branch NIFEDIPINE 0 Yes 30mg Take 30 mg U nivers ER ORAL 3-16 by mouth ity of 15:35: daily. [place] [address] Medical Branch losartan 50 0 Yes 2 (two) Uni vers mg tablet 3-16 times ity of 15:35: daily. [place] [address] Medical Branch metoprolol Yes 25mg Take 25 mg U nivers succinate 3-16 by mouth ity of XL 25 mg 24 15:35: daily. [place] hr tablet 55 [facility] Branch sitagliptan Yes 1{tbl} Take 1 Un xochitl -metformin 3-16 tablet by ity of (JANUMET) 15:35: mouth 2 [place] 50-1,000 mg 55 (two) Medical per tablet times Branch daily with meals. ticagrelor Yes 90mg Take 90 mg U nivers 90 mg 3-16 by mouth 2 ity of tablet 15:35: (two) [place] [address] times Medical daily. Branch canaglifloz Yes Take by Uni vers in 3-16 mouth. ity of (INVOKANA) 15:35: [place] 100 mg Medical tablet Branch doxycycline Yes Take by Uni vers hyclate 50 3-16 mouth. ity of mg TbEC 15:35: [place] [address] Medical Branch aspirin Yes 81mg Take 81 mg Univ ers (ASPIRIN 3-16 by mouth ity of CHILDRENS) 15:35: daily. [place] 81 mg 55 Medical chewable Branch tablet atorvastati Yes 20mg Take 20 mg Univers n 20 mg 3-16 by mouth ity of tablet 15:35: at [place] [address] bedtime. Medical Branch latanoprost Yes 1[drp] 1 Drop Un xochitl 0.005 % 3-16 every ity of ophthalmic 15:35: evening. [place] drops Medical Branch ranibizumab Yes by Univer s (LUCENTIS) 3-16 Intravitre ity of 0.3 mg/0.05 15:35: al route. [place] mL Soln Medical Branch isosorbide Yes 1.5{tbl Take 1.5 Univers mononitrate 3-16 } tablets by it y of 30 mg 24 hr 15:35: mouth 2 [place] tablet 55 (two) Medical times Branch daily. furosemide 0 Yes 40mg Take 40 mg U nivers 40 mg 3-16 by mouth ity of tablet 15:35: daily. [place] [address] Medical Branch NIFEDIPINE 0 Yes 30mg Take 30 mg U nivers ER ORAL 3-16 by mouth ity of 15:35: daily. [place] [address] Medical Branch losartan 50 0 Yes 2 (two) Uni vers mg tablet 3-16 times ity of 15:35: daily. [place] [address] Medical Branch metoprolol 0 Yes 25mg Take 25 mg U nivers succinate 3-16 by mouth ity of XL 25 mg 24 15:35: daily. [place] hr tablet Medical Branch sitagliptan Yes 1{tbl} Take 1 Un xochitl -metformin 3-16 tablet by ity of (JANUMET) 15:35: mouth 2 [place] 50-1,000 mg (two) Medical per tablet times Branch daily with meals. ticagrelor Yes 90mg Take 90 mg U nivers 90 mg 3-16 by mouth 2 ity of tablet 15:35: (two) [place] [address] times Medical daily. Branch canaglifloz Yes Take by Uni vers in 3-16 mouth. ity of (INVOKANA) 15:35: [place] 100 mg Medical tablet Branch doxycycline Yes Take by Uni vers hyclate 50 3-16 mouth. ity of mg TbEC 15:35: [place] [address] Medical Branch aspirin Yes 81mg Take 81 mg Univ ers (ASPIRIN 3-16 by mouth ity of CHILDRENS) 15:35: daily. [place] 81 mg Medical chewable Branch tablet atorvastati Yes 20mg Take 20 mg Univers n 20 mg 3-16 by mouth ity of tablet 15:35: at [place] [address] bedtime. Medical Branch latanoprost Yes 1[drp] 1 Drop Un xochitl 0.005 % 3-16 every ity of ophthalmic 15:35: evening. [place] drops [facility] Branch ranibizumab Yes by [facility]iver s (LUCENTIS) 3-16 Intravitre ity of 0.3 mg/0.05 15:35: al route. [place] [facility] Soln [address] [place] [address] isosorbide 0 Yes 1.5{tbl Take 1.5 [facility] mononitrate 3-16 } tablets by it y of 30 mg 24 hr 15:35: mouth 2 [facility] as tablet 55 (two) Medical times Branch daily. furosemide Yes 40mg Take 40 mg U nivers 40 mg 3-16 by mouth ity of tablet 15:35: daily. [address] NIFEDIPINE 0 Yes 30mg Take 30 mg U nivers ER ORAL 3-16 by mouth ity of 15:35: daily. [address] losartan 50 0 Yes 2 (two) Uni vers mg tablet 3-16 times ity of 15:35: daily. [address] clindamycin 2018- Yes [id number] 300mg Take 1 [facility] 300 mg 9-24 capsule by ity of capsule 00:00: mouth 3 [place] (three) Medical times Branch daily. clindamycin Yes [id number] 300mg Take 1 [facility] 300 mg 9-24 capsule by ity of capsule 00:00: mouth 3 [place] (three) Medical times Branch daily. clindamycin 2018-0 Yes [id number] 300mg Take 1 [facility] 300 mg 9-24 capsule by ity of capsule 00:00: mouth 3 [place] (three) Medical times Branch daily. clindamycin 0 Yes [id number] 300mg Take 1 [facility] 300 mg 9-24 capsule by ity of capsule 00:00: mouth [address] [place] [address] (three) Medical times Branch daily. clindamycin 2018-0 Yes [id number] 300mg Take 1 [facility] 300 mg 9-24 capsule by ity of capsule 00:00: mouth 3 [place] (three) Medical times Branch daily. clindamycin 2018-0 Yes [id number] 300mg Take 1 [facility] 300 mg 9-24 capsule by ity of capsule 00:00: mouth 3 [place] (three) Medical times Branch daily. clindamycin 2018-0 Yes [id number] 300mg Take 1 [facility] 300 mg 9-24 capsule by ity of capsule 00:00: mouth 3 [place] (three) Medical times Branch daily. clindamycin 2018-0 Yes [id number] 300mg Take 1 [facility] 300 mg 9-24 capsule by ity of capsule 00:00: mouth 3 [place] 00 (three) Medical times [place] daily. clindamycin 2019-0 Yes [id number] 300mg Take 1 [facility] 300 mg 9-24 capsule by ity of capsule 00:00: mouth 3 00 (three) Medical times [place] daily. fluocinonid 2017-0 Yes [id number] Apply to Univers e 0.05 % 8-03 area(s) 2 ity of cream 00:00: (two) [place] 00 times Medical daily. Branch fluocinonid 2017-0 Yes [id number] Apply to Univers e 0.05 % 8-03 area(s) 2 ity of cream 00:00: (two) [place] 00 times Medical daily. Branch fluocinonid 2017-0 Yes [id number] Apply to Univers e 0.05 % 8-03 area(s) 2 ity of cream 00:00: (two) [place] 00 times Medical daily. Branch fluocinonid 2016-0 Yes [id number] Apply to Univers e 0.05 % 8-03 area(s) 2 ity of cream 00:00: (two) [place] 00 times Medical daily. Branch fluocinonid 2017-0 Yes [id number] Apply to Univers e 0.05 % 8-03 area(s) 2 ity of cream 00:00: (two) [place] 00 times Medical daily. Branch fluocinonid 2016-0 Yes [id number] Apply to Univers e 0.05 % 8-03 area(s) 2 ity of cream 00:00: (two) [place] 00 times Medical daily. Branch fluocinonid 2016-0 Yes [id number] Apply to Univers e 0.05 % 8-03 area(s) 2 ity of cream 00:00: (two) [place] 00 times Medical daily. Branch fluocinonid 2017-0 Yes [id number] Apply to Univers e 0.05 % 8-03 area(s) 2 ity of cream 00:00: (two) [place] 00 times Medical daily. Branch fluocinonid 2017-0 Yes [id number] Apply to Univers e 0.05 % 8-03 area(s) 2 ity of cream 00:00: (two) [place] 00 times Medical daily. Branch Accu-Chek Accu-Chek No Accu-Chek [place] Cassie Plus Cassie Plus Cassie Plus [facility] test strips test strips test U rolog 3 TIMES A 3 TIMES A strips 3 DAY DAY TIMES A DAY aspirin 81 aspirin 81 No aspirin 81 [place] mg mg mg [facility] tablet,sandrine tablet,sandrine tablet,del Urology yed release yed release ayed TAKE 1 TAKE 1 release TABLET BY TABLET BY TAKE 1 MOUTH EVERY MOUTH EVERY TABLET BY DAY DAY MOUTH EVERY DAY atorvastati atorvastati No atorvastat [place] n 20 mg n 20 mg in 20 mg [facility] tablet TAKE tablet TAKE tablet Urology 1 TABLET BY 1 TABLET BY TAKE 1 MOUTH EVERY MOUTH EVERY TABLET BY DAY DAY MOUTH EVERY DAY Brilinta 90 Brilinta 90 No Brilinta [place] mg tablet mg tablet 90 mg Metr o TAKE 1 TAKE 1 tablet Urology TABLET BY TABLET BY TAKE 1 MOUTH TWICE MOUTH TWICE TABLET BY A DAY A DAY MOUTH TWICE A DAY clonidine clonidine No clonidine [place] hcl 0.1 mg hcl 0.1 mg hcl 0.1 mg [facility] tabs tabs tabs Urology dorzolamide dorzolamide No dorzolamid [place] 22.3 22.3 e 22.3 [facility] mg-timolol mg-timolol mg-timolol Urology 6.8 mg/mL 6.8 mg/mL 6.8 mg/mL eye drops eye drops eye drops INSTILL 1 INSTILL 1 INSTILL 1 DROP TWICE DROP TWICE DROP TWICE A DAY INTO A DAY INTO A DAY INTO RIGHT EYE RIGHT EYE RIGHT EYE doxycycline doxycycline No doxycyclin [place] hyclate 50 hyclate 50 e hyclate [facility] mg capsule mg capsule 50 mg Ur ology TAKE 1 TAKE 1 capsule CAPSULE BY CAPSULE BY TAKE 1 MOUTH EVERY MOUTH EVERY CAPSULE BY DAY DAY MOUTH EVERY DAY ergocalcife ergocalcife No ergocalcif [facility] sue [facility] (vitamin (vitamin (vitamin Uro logy D2) 1,250 D2) 1,250 D2) 1,250 mcg (50,000 mcg (50,000 mcg unit) unit) (50,000 capsule capsule unit) TAKE 1 BY TAKE 1 BY capsule MOUTH MOUTH TAKE 1 BY WEEKLY FOR WEEKLY FOR MOUTH 4 WEEKS 4 WEEKS WEEKLY FOR 4 WEEKS Fluad Quad Fluad Quad No Fluad Quad [place] ((( [facility] 5yr up)(PF) 5yr up)(PF) 66yr U rology 60 mcg (15 60 mcg (15 up)(PF) 60 mcg x mcg x mcg (15 4)/0.5mL IM 4)/0.5mL IM mcg x syringe syringe 4)/0.5mL PHARMACY PHARMACY IM syringe ADMINISTERE ADMINISTERE PHARMACY D D ADMINISTER ED furosemide furosemide No furosemide [place] 40 mg 40 mg 40 mg [facility] tablet TAKE tablet TAKE tablet Urology 1 TABLET IN 1 TABLET IN TAKE 1 AM AND 1.5 AM AND 1.5 TABLET IN TABLETS IN TABLETS IN AM AND 1.5 PM PM TABLETS IN PM isosorbide isosorbide No isosorbide [place] mononitrate mononitrate mononitrat [facility] ER 30 mg ER 30 mg e ER 30 mg U rology tablet,exte tablet,exte tablet,ext nded nded ended release 24 release 24 release 24 hr TAKE 2 hr TAKE 2 hr TAKE 2 TABLETS BY TABLETS BY TABLETS BY MOUTH TWICE MOUTH TWICE MOUTH A DAY A DAY TWICE A DAY isosorbide isosorbide No isosorbide [place] mononitrate mononitrate mononitrat [facility] ER 60 mg ER 60 mg e ER 60 mg U rology tablet,exte tablet,exte tablet,ext nded nded ended release 24 release 24 release 24 hr TAKE 1 hr TAKE 1 hr TAKE 1 TABLET BY TABLET BY TABLET BY MOUTH 2 MOUTH 2 MOUTH 2 TIMES A TIMES A TIMES A DAY. DAY. DAY. Janumet 50 Janumet 50 No Janumet 50 [place] mg-1,000 mg mg-1,000 mg mg-1,000 [facility] tablet TAKE tablet TAKE mg tablet Urology 1 TABLET BY 1 TABLET BY TAKE 1 MOUTH TWICE MOUTH TWICE TABLET BY A DAY A DAY MOUTH TWICE A DAY Jardiance Jardiance No Jardiance [place] 10 mg 10 mg 10 mg [facility] tablet TAKE tablet TAKE tablet Urology 1 TABLET BY 1 TABLET BY TAKE 1 MOUTH EVERY MOUTH EVERY TABLET BY DAY DAY MOUTH EVERY DAY latanoprost latanoprost No latanopros [place] 0.005 % eye 0.005 % eye t 0.005 % [facility] drops drops eye drops Urology INSTILL 1 INSTILL 1 INSTILL 1 DROP INTO DROP INTO DROP INTO BOTH EYES BOTH EYES BOTH EYES EVERY DAY EVERY DAY EVERY DAY AT BEDTIME AT BEDTIME AT BEDTIME losartan 25 losartan 25 No losartan [place] mg tablet mg tablet 25 mg Metr o TAKE 1 TAKE 1 tablet Urology TABLET (25 TABLET (25 TAKE 1 MG TOTAL) MG TOTAL) TABLET (25 BY MOUTH BY MOUTH MG TOTAL) DAILY. DAILY. BY MOUTH DAILY. losartan 50 losartan 50 No losartan [place] mg tablet mg tablet 50 mg Metr o TAKE 1 TAKE 1 tablet Urology TABLET BY TABLET BY TAKE 1 MOUTH EVERY MOUTH EVERY TABLET BY DAY DAY MOUTH EVERY DAY Lupron Lupron No 45mg Lupron [place] Depot 45 mg Depot 45 mg Dep[place] 45 [facility] (6 Month) (6 Month) mg (6 Urol ogy intramuscul intramuscul Month) ar syringe ar syringe intramuscu kit Inject kit Inject lar 45 mg as 45 mg as syringe needed by needed by kit Inject intramuscul intramuscul 45 mg as ar route. ar route. needed by intramuscu lar route. metoprolol metoprolol No metoprolol [place] tartrate 25 tartrate 25 tartrate [facility] mg tablet mg tablet 25 mg Urol ogy TAKE 1 TAKE 1 tablet TABLET BY TABLET BY TAKE 1 MOUTH 2 MOUTH 2 TABLET BY TIMES A DAY TIMES A DAY MOUTH 2 TIMES A DAY nifedipine nifedipine No nifedipine [place] ER 30 mg ER 30 mg ER 30 mg Met ro tablet,exte tablet,exte tablet,ext Urology nded nded ended release release release TAKE 1 TAKE 1 TAKE 1 TABLET BY TABLET BY TABLET BY MOUTH TWICE MOUTH TWICE MOUTH A DAY A DAY TWICE A DAY nifedipine nifedipine No nifedipine [place] ER 30 mg ER 30 mg ER 30 mg Met ro tablet,exte tablet,exte tablet,ext Urology nded nded ended release 24 release 24 release 24 hr hr hr ofloxacin ofloxacin No ofloxacin [place] 0.3 % eye 0.3 % eye 0.3 % eye [facility] drops drops drops Urology prednisolon prednisolon No prednisolo [place] e acetate 1 e acetate 1 ne acetate [facility] % eye % eye 1 % eye Urology drops,suspe drops,suspe drops,susp nsion nsion ension Prevnar 13 Prevnar 13 No Prevnar 13 [place] (PF) 0.5 mL (PF) 0.5 mL (PF) 0.5 [facility] intramuscul intramuscul mL U rology ar syringe ar syringe intramuscu PHARMACY PHARMACY lar ADMINISTERE ADMINISTERE syringe D D PHARMACY ADMINISTER ED timolol timolol No timolol [place] maleate 0.5 maleate 0.5 maleate [facility] % eye drops % eye drops 0.5 % eye Urology drops Accu-Chek Accu-Chek No Accu-Chek [place] Cassie Plus Cassie Plus Cassie Plus [facility] test strips test strips test U rology TEST BLOOD TEST BLOOD strips SUGAR 3 SUGAR 3 TEST BLOOD TIMES A DAY TIMES A DAY SUGAR 3 TIMES A DAY aspirin 81 aspirin 81 No aspirin 81 [place] mg mg mg [facility] tablet,sandrine tablet,sandrine tablet,del Urology yed release yed release ayed TAKE 1 TAKE 1 release TABLET BY TABLET BY TAKE 1 MOUTH EVERY MOUTH EVERY TABLET BY DAY DAY MOUTH EVERY DAY atorvastati atorvastati No atorvastat [place] n 20 mg n 20 mg in 20 mg [facility] tablet TAKE tablet TAKE tablet Urology 1 TABLET BY 1 TABLET BY TAKE 1 MOUTH EVERY MOUTH EVERY TABLET BY DAY DAY MOUTH EVERY DAY Brilinta 90 Brilinta 90 No Brilinta [place] mg tablet mg tablet 90 mg Metr o TAKE 1 TAKE 1 tablet Urology TABLET BY TABLET BY TAKE 1 MOUTH TWICE MOUTH TWICE TABLET BY A DAY A DAY MOUTH TWICE A DAY clonidine clonidine No clonidine [place] hcl 0.1 mg hcl 0.1 mg hcl 0.1 mg [facility] tabs tabs tabs Urology dorzolamide dorzolamide No dorzolamid [place] 22.3 22.3 e 22.3 [facility] mg-timolol mg-timolol mg-timolol Urology 6.8 mg/mL 6.8 mg/mL 6.8 mg/mL eye drops eye drops eye drops INSTILL 1 INSTILL 1 INSTILL 1 DROP TWICE DROP TWICE DROP TWICE A DAY INTO A DAY INTO A DAY INTO RIGHT EYE RIGHT EYE RIGHT EYE doxycycline doxycycline No doxycyclin [place] hyclate 50 hyclate 50 e hyclate [facility] mg capsule mg capsule 50 mg Ur ology TAKE 1 TAKE 1 capsule CAPSULE BY CAPSULE BY TAKE 1 MOUTH EVERY MOUTH EVERY CAPSULE BY DAY DAY MOUTH EVERY DAY ergocalcife ergocalcife No ergocalcif [place] rol rol sue [facility] (vitamin (vitamin (vitamin Uro logy D2) 1,250 D2) 1,250 D2) 1,250 mcg (50,000 mcg (50,000 mcg unit) unit) (50,000 capsule capsule unit) TAKE 1 TAKE 1 capsule CAPSULE BY CAPSULE BY TAKE 1 MOUTH ONE MOUTH ONE CAPSULE BY TIME PER TIME PER MOUTH ONE WEEK WEEK TIME PER WEEK Fluad Quad Fluad Quad No Fluad Quad [place] (6 [phone]( [facility] 5yr up)(PF) 5yr up)(PF) 65yr U rology 60 mcg (15 60 mcg (15 up)(PF) 60 mcg x mcg x mcg (15 4)/0.5mL IM 4)/0.5mL IM mcg x syringe syringe 4)/0.5mL PHARMACY PHARMACY IM syringe ADMINISTERE ADMINISTERE PHARMACY D D ADMINISTER ED furosemide furosemide No furosemide [place] 40 mg 40 mg 40 mg [facility] tablet TAKE tablet TAKE tablet Urology 2 TABLETS 2 TABLETS TAKE 2 BY MOUTH BY MOUTH TABLETS BY TWICE A DAY TWICE A DAY MOUTH TWICE A DAY isosorbide isosorbide No isosorbide [place] mononitrate mononitrate mononitrat [facility] ER 30 mg ER 30 mg e ER 30 mg U rology tablet,exte tablet,exte tablet,ext nded nded ended release 24 release 24 release 24 hr TAKE 2 hr TAKE 2 hr TAKE 2 TABLETS BY TABLETS BY TABLETS BY MOUTH TWICE MOUTH TWICE MOUTH A DAY A DAY TWICE A DAY isosorbide isosorbide No isosorbide [place] mononitrate mononitrate mononitrat [facility] ER 60 mg ER 60 mg e ER 60 mg U rology tablet,exte tablet,exte tablet,ext nded nded ended release 24 release 24 release 24 hr TAKE 1 hr TAKE 1 hr TAKE 1 TABLET BY TABLET BY TABLET BY MOUTH 2 MOUTH 2 MOUTH 2 TIMES A TIMES A TIMES A DAY. DAY. DAY. Janumet 50 Janumet 50 No Janumet 50 [place] mg-1,000 mg mg-1,000 mg mg-1,000 [facility] tablet TAKE tablet TAKE mg tablet Urology 1 TABLET BY 1 TABLET BY TAKE 1 MOUTH TWICE MOUTH TWICE TABLET BY A DAY A DAY MOUTH TWICE A DAY Jardiance Jardiance No Jardiance [place] 10 mg 10 mg 10 mg [facility] tablet TAKE tablet TAKE tablet Urology 1 TABLET BY 1 TABLET BY TAKE 1 MOUTH EVERY MOUTH EVERY TABLET BY DAY DAY MOUTH EVERY DAY latanoprost latanoprost No latanopros [place] 0.005 % eye 0.005 % eye t 0.005 % [facility] drops drops eye drops Urology INSTILL 1 INSTILL 1 INSTILL 1 DROP INTO DROP INTO DROP INTO BOTH EYES BOTH EYES BOTH EYES EVERY DAY EVERY DAY EVERY DAY AT BEDTIME AT BEDTIME AT BEDTIME losartan 25 losartan 25 No losartan [place] mg tablet mg tablet 25 mg Metr o TAKE 1 TAKE 1 tablet Urology TABLET BY TABLET BY TAKE 1 MOUTH TWICE MOUTH TWICE TABLET BY A DAY A DAY MOUTH TWICE A DAY losartan 50 losartan 50 No losartan [place] mg tablet mg tablet 50 mg Metr o TAKE 1 TAKE 1 tablet Urology TABLET BY TABLET BY TAKE 1 MOUTH TWICE MOUTH TWICE TABLET BY A DAY A DAY MOUTH TWICE A DAY Lupron Lupron No 45mg Lupron [place] Depot 45 mg Depot 45 mg [place] 45 [facility] (6 Month) (6 Month) mg (6 Urol ogy intramuscul intramuscul Month) ar syringe ar syringe intramuscu kit Inject kit Inject lar 45 mg as 45 mg as syringe needed by needed by kit Inject intramuscul intramuscul 45 mg as ar route. ar route. needed by intramuscu lar route. metoprolol metoprolol No metoprolol [place] tartrate 25 tartrate 25 tartrate [facility] mg tablet mg tablet 25 mg Urol ogy TAKE 1 TAKE 1 tablet TABLET BY TABLET BY TAKE 1 MOUTH TWICE MOUTH TWICE TABLET BY A DAY A DAY MOUTH TWICE A DAY neomycin neomycin No neomycin Velia ston 3.5 3.5 3.5 [facility] mg/g-polymy mg/g-polymy mg/g-polym Urology norman B norman B yxin B 10,000 10,000 10,000 unit/g-dexa unit/g-dexa unit/g-dex meth 0.1 % meth 0.1 % ameth 0.1 eye oint eye oint % eye oint APPLY TO APPLY TO APPLY TO RIGHT EYE RIGHT EYE RIGHT EYE AT BEDTIME AT BEDTIME AT BEDTIME nifedipine nifedipine No nifedipine [place] ER 30 mg ER 30 mg ER 30 mg Met ro tablet,exte tablet,exte tablet,ext Urology nded nded ended release release release TAKE 1 TAKE 1 TAKE 1 TABLET BY TABLET BY TABLET BY MOUTH TWICE MOUTH TWICE MOUTH A DAY A DAY TWICE A DAY nifedipine nifedipine No nifedipine [place] ER 30 mg ER 30 mg ER 30 mg Met ro tablet,exte tablet,exte tablet,ext Urology nded nded ended release 24 release 24 release 24 hr hr hr nitroglycer nitroglycer No nitroglyce [place] in 0.4 mg in 0.4 mg rin 0.4 mg [facility] sublingual sublingual sublingual Urology tablet tablet tablet PL[address] 1 TABLET TABLET TABLET UNDER UNDER UNDER TONGUE TONGUE TONGUE EVERY 5 EVERY 5 EVERY 5 MINS, UP TO MINS, UP TO MINS, UP 3 DOSES 3 DOSES TO 3 DOSES NEEDED FOR NEEDED FOR NEEDED CHEST PAIN CHEST PAIN FOR CHEST PAIN ofloxacin ofloxacin No ofloxacin [place] 0.3 % eye 0.3 % eye 0.3 % eye [facility] drops drops drops Urology potassium potassium No potassium [place] chloride ER chloride ER chloride [facility] 20 mEq 20 mEq ER 20 mEq Urolog y tablet,exte tablet,exte tablet,ext nded nded ended release release release TAKE 1 TAKE 1 TAKE 1 TABLET BY TABLET BY TABLET BY MOUTH EVERY MOUTH EVERY MOUTH DAY DAY EVERY DAY prednisolon prednisolon No prednisolo [place] e acetate 1 e acetate 1 ne acetate [facility] % eye % eye 1 % eye Urology drops,suspe drops,suspe drops,susp nsion nsion ension Prevnar 13 Prevnar 13 No Prevnar 13 [place] (PF) 0.5 mL (PF) 0.5 mL (PF) 0.5 [facility] intramuscul intramuscul mL U rology ar syringe ar syringe intramuscu PHARMACY PHARMACY lar ADMINISTERE ADMINISTERE syringe D D PHARMACY ADMINISTER ED ranolazine ranolazine No ranolazine [place] ER 500 mg ER 500 mg ER 500 mg [facility] tablet,exte tablet,exte tablet,ext Urology nded nded ended release,12 release,12 release,12 hr TAKE 1 hr TAKE 1 hr TAKE 1 TABLET BY TABLET BY TABLET BY MOUTH EVERY MOUTH EVERY MOUTH DAY DAY EVERY DAY timolol timolol No timolol [place] maleate 0.5 maleate 0.5 maleate [facility] % eye drops % eye drops 0.5 % eye Urology drops Accu-Chek Accu-Chek No Accu-Chek [place] Cassie Plus Cassie Plus Cassie Plus [facility] test strips test [facility] TIMES A 3 TIMES A strips 3 DAY DAY TIMES A DAY aspirin 81 aspirin 81 No aspirin 81 [place] mg mg mg [facility] tablet,sandrine tablet,sandrine tablet,del Urology yed release yed release ayed TAKE 1 TAKE 1 release TABLET BY TABLET BY TAKE 1 MOUTH EVERY MOUTH EVERY TABLET BY DAY DAY MOUTH EVERY DAY atorvastati atorvastati No atorvastat [place] n 20 mg n 20 mg in 20 mg [facility] tablet TAKE tablet TAKE tablet Urology 1 TABLET BY 1 TABLET BY TAKE 1 MOUTH EVERY MOUTH EVERY TABLET BY DAY DAY MOUTH EVERY DAY Brilinta 90 Brilinta 90 No Brilinta [place] mg tablet mg tablet 90 mg Metr o TAKE 1 TAKE 1 tablet Urology TABLET BY TABLET BY TAKE 1 MOUTH TWICE MOUTH TWICE TABLET BY A DAY A DAY MOUTH TWICE A DAY clonidine clonidine No clonidine [place] hcl 0.1 mg hcl 0.1 mg hcl 0.1 mg [facility] tabs tabs tabs Urology dorzolamide dorzolamide No dorzolamid [place] 22.3 22.3 e 22.3 [facility] mg-timolol mg-timolol mg-timolol Urology 6.8 mg/mL 6.8 mg/mL 6.8 mg/mL eye drops eye drops eye drops doxycycline doxycycline No doxycyclin [place] hyclate 50 hyclate 50 e hyclate [facility] mg capsule mg capsule 50 mg Ur ology TAKE 1 TAKE 1 capsule CAPSULE BY CAPSULE BY TAKE 1 MOUTH EVERY MOUTH EVERY CAPSULE BY DAY DAY MOUTH EVERY DAY ergocalcife ergocalcife No ergocalcif [place] rol rol sue [facility] (vitamin (vitamin (vitamin Uro logy D2) 1,250 D2) 1,250 D2) 1,250 mcg (50,000 mcg (50,000 mcg unit) unit) (50,000 capsule capsule unit) TAKE 1 TAKE 1 capsule CAPSULE BY CAPSULE BY TAKE 1 MOUTH ONCE MOUTH ONCE CAPSULE BY A WEEK FOR A WEEK FOR MOUTH ONCE 4 WEEKS 4 WEEKS A WEEK FOR 4 WEEKS Fluad Quad Fluad Quad No Fluad Quad [place] ((( [facility] 5yr up)(PF) 5yr up)(PF) 65yr U rology 60 mcg (15 60 mcg (15 up)(PF) 60 mcg x mcg x mcg (15 4)/0.5mL IM 4)/0.5mL IM mcg x syringe syringe 4)/0.5mL PHARMACY PHARMACY IM syringe ADMINISTERE ADMINISTERE PHARMACY D D ADMINISTER ED furosemide furosemide No furosemide [place] 40 mg 40 mg 40 mg [facility] tablet TAKE tablet TAKE tablet Urology 1 TABLET BY 1 TABLET BY TAKE 1 MOUTH TWICE MOUTH TWICE TABLET BY A DAY A DAY MOUTH TWICE A DAY isosorbide isosorbide No isosorbide [place] mononitrate mononitrate mononitrat [facility] ER 30 mg ER 30 mg e ER 30 mg U rology tablet,exte tablet,exte tablet,ext nded nded ended release 24 release 24 release 24 hr TAKE 1 hr TAKE 1 hr TAKE 1 AND 1/2 AND 1/2 AND 1/2 TABLETS BY TABLETS BY TABLETS BY MOUTH TWICE MOUTH TWICE MOUTH DAILY DAILY TWICE DAILY Janumet 50 Janumet 50 No Janumet 50 [place] mg-1,000 mg mg-1,000 mg mg-1,000 [facility] tablet TAKE tablet TAKE mg tablet Urology 1 TABLET BY 1 TABLET BY TAKE 1 MOUTH TWICE MOUTH TWICE TABLET BY A DAY A DAY MOUTH TWICE A DAY Jardiance Jardiance No Jardiance [place] 10 mg 10 mg 10 mg [facility] tablet TAKE tablet TAKE tablet Urology 1 TABLET BY 1 TABLET BY TAKE 1 MOUTH EVERY MOUTH EVERY TABLET BY DAY DAY MOUTH EVERY DAY latanoprost latanoprost No latanopros [place] 0.005 % eye 0.005 % eye t 0.005 % [facility] drops drops eye drops Urology INSTILL 1 INSTILL 1 INSTILL 1 DROP INTO DROP INTO DROP INTO BOTH EYES BOTH EYES BOTH EYES EVERY DAY EVERY DAY EVERY DAY AT BEDTIME AT BEDTIME AT BEDTIME losartan 50 losartan 50 No losartan [place] mg tablet mg tablet 50 mg Metr o TAKE 1 TAKE 1 tablet Urology TABLET BY TABLET BY TAKE 1 MOUTH EVERY MOUTH EVERY TABLET BY DAY DAY MOUTH EVERY DAY Lupron Lupron No 45mg Lupron [place] 45 mg [place] 45 mg [place] 45 [facility] (6 Month) (6 Month) mg (6 Urol ogy intramuscul intramuscul Month) ar syringe ar syringe intramuscu kit Inject kit Inject lar 45 mg as 45 mg as syringe needed by needed by kit Inject intramuscul intramuscul 45 mg as ar route. ar route. needed by intramuscu lar route. metoprolol metoprolol No metoprolol [place] tartrate 25 tartrate 25 tartrate [facility] mg tablet mg tablet 25 mg Urol ogy TAKE 1 TAKE 1 tablet TABLET BY TABLET BY TAKE 1 MOUTH 2 MOUTH 2 TABLET BY TIMES A DAY TIMES A DAY MOUTH 2 TIMES A DAY nifedipine nifedipine No nifedipine [place] ER 30 mg ER 30 mg ER 30 mg Met ro tablet,exte tablet,exte tablet,ext Urology nded nded ended release release release TAKE 1 TAKE 1 TAKE 1 TABLET BY TABLET BY TABLET BY MOUTH TWICE MOUTH TWICE MOUTH A DAY A DAY TWICE A DAY nifedipine nifedipine No nifedipine [place] ER 30 mg ER 30 mg ER 30 mg Met ro tablet,exte tablet,exte tablet,ext Urology nded nded ended release 24 release 24 release 24 hr hr hr ofloxacin ofloxacin No ofloxacin [place] 0.3 % eye 0.3 % eye 0.3 % eye [facility] drops drops drops Urology prednisolon prednisolon No prednisolo [place] e acetate 1 e acetate 1 ne acetate [facility] % eye % eye 1 % eye Urology drops,suspe drops,suspe drops,susp nsion nsion ension Prevnar 13 Prevnar 13 No Prevnar 13 [place] (PF) 0.5 mL (PF) 0.5 mL (PF) 0.5 [facility] intramuscul intramuscul mL U rology ar syringe ar syringe intramuscu PHARMACY PHARMACY lar ADMINISTERE ADMINISTERE syringe D D PHARMACY ADMINISTER ED timolol timolol No timolol [place] maleate 0.5 maleate 0.5 maleate [facility] % eye drops % eye drops 0.5 % eye Urology drops Accu-Chek Accu-Chek No Accu-Chek [place] Cassie Plus Cassie Plus Cassie Plus [facility] test strips test strips test U rology 3 TIMES A 3 TIMES A strips 3 DAY DAY TIMES A DAY aspirin 81 aspirin 81 No aspirin 81 [place] mg mg mg [facility] tablet,sandrine tablet,sandrine tablet,del Urology yed release yed release ayed TAKE 1 TAKE 1 release TABLET BY TABLET BY TAKE 1 MOUTH EVERY MOUTH EVERY TABLET BY DAY DAY MOUTH EVERY DAY atorvastati atorvastati No atorvastat [place] n 20 mg n 20 mg in 20 mg [facility] tablet TAKE tablet TAKE tablet Urology 1 TABLET BY 1 TABLET BY TAKE 1 MOUTH EVERY MOUTH EVERY TABLET BY DAY DAY MOUTH EVERY DAY Brilinta 90 Brilinta 90 No Brilinta [place] mg tablet mg tablet 90 mg Metr o TAKE 1 TAKE 1 tablet Urology TABLET BY TABLET BY TAKE 1 MOUTH TWICE MOUTH TWICE TABLET BY A DAY A DAY MOUTH TWICE A DAY clonidine clonidine No clonidine [place] hcl 0.1 mg hcl 0.1 mg hcl 0.1 mg [facility] tabs tabs tabs Urology dorzolamide dorzolamide No dorzolamid [place] 22.3 22.3 e 22.3 [facility] mg-timolol mg-timolol mg-timolol Urology 6.8 mg/mL 6.8 mg/mL 6.8 mg/mL eye drops eye drops eye drops doxycycline doxycycline No doxycyclin [place] hyclate 50 hyclate 50 e hyclate [facility] mg capsule mg capsule 50 mg Ur ology TAKE 1 TAKE 1 capsule CAPSULE BY CAPSULE BY TAKE 1 MOUTH EVERY MOUTH EVERY CAPSULE BY DAY DAY MOUTH EVERY DAY ergocalcife ergocalcife No ergocalcif [place] rol rol sue [facility] (vitamin (vitamin (vitamin Uro logy D2) 1,250 D2) 1,250 D2) 1,250 mcg (50,000 mcg (50,000 mcg unit) unit) (50,000 capsule capsule unit) TAKE 1 TAKE 1 capsule CAPSULE BY CAPSULE BY TAKE 1 MOUTH ONCE MOUTH ONCE CAPSULE BY A WEEK FOR A WEEK FOR MOUTH ONCE 4 WEEKS 4 WEEKS A WEEK FOR 4 WEEKS Fluad Quad Fluad Quad No Fluad Quad [place] ((6 ( [facility] 5yr up)(PF) 5yr up)(PF) 65yr U rology 60 mcg (15 60 mcg (15 up)(PF) 60 mcg x mcg x mcg (15 4)/0.5mL IM 4)/0.5mL IM mcg x syringe syringe 4)/0.5mL PHARMACY PHARMACY IM syringe ADMINISTERE ADMINISTERE PHARMACY D D ADMINISTER ED furosemide furosemide No furosemide [place] 40 mg 40 mg 40 mg [facility] tablet TAKE tablet TAKE tablet Urology 1 TABLET BY 1 TABLET BY TAKE 1 MOUTH TWICE MOUTH TWICE TABLET BY A DAY A DAY MOUTH TWICE A DAY isosorbide isosorbide No isosorbide [place] mononitrate mononitrate mononitrat [facility] ER 30 mg ER 30 mg e ER 30 mg U rology tablet,exte tablet,exte tablet,ext nded nded ended release 24 release 24 release 24 hr TAKE 1 hr TAKE 1 hr TAKE 1 AND 1/2 AND 1/2 AND 1/2 TABLETS BY TABLETS BY TABLETS BY MOUTH TWICE MOUTH TWICE MOUTH DAILY DAILY TWICE DAILY Janumet 50 Janumet 50 No Janumet 50 [place] mg-1,000 mg mg-1,000 mg mg-1,000 [facility] tablet TAKE tablet TAKE mg tablet Urology 1 TABLET BY 1 TABLET BY TAKE 1 MOUTH TWICE MOUTH TWICE TABLET BY A DAY A DAY MOUTH TWICE A DAY Jardiance Jardiance No Jardiance [place] 10 mg 10 mg 10 mg [facility] tablet TAKE tablet TAKE tablet Urology 1 TABLET BY 1 TABLET BY TAKE 1 MOUTH EVERY MOUTH EVERY TABLET BY DAY DAY MOUTH EVERY DAY latanoprost latanoprost No latanopros [place] 0.005 % eye 0.005 % eye t 0.005 % [facility] drops drops eye drops Urology INSTILL 1 INSTILL 1 INSTILL 1 DROP INTO DROP INTO DROP INTO BOTH EYES BOTH EYES BOTH EYES EVERY DAY EVERY DAY EVERY DAY AT BEDTIME AT BEDTIME AT BEDTIME losartan 50 losartan 50 No losartan [place] mg tablet mg tablet 50 mg Metr o TAKE 1 TAKE 1 tablet Urology TABLET BY TABLET BY TAKE 1 MOUTH EVERY MOUTH EVERY TABLET BY DAY DAY MOUTH EVERY DAY Lupron Lupron No 45mg Lupron [place] Depot 45 mg Depot 45 mg Depot 45 [facility] (6 Month) (6 Month) mg (6 Urol ogy intramuscul intramuscul Month) ar syringe ar syringe intramuscu kit Inject kit Inject lar 45 mg as 45 mg as syringe needed by needed by kit Inject intramuscul intramuscul 45 mg as ar route. ar route. needed by intramuscu lar route. metoprolol metoprolol No metoprolol [place] tartrate 25 tartrate 25 tartrate [place] mg tablet mg tablet 25 mg Urol ogy TAKE 1 TAKE 1 tablet TABLET BY TABLET BY TAKE 1 MOUTH 2 MOUTH 2 TABLET BY TIMES A DAY TIMES A DAY MOUTH 2 TIMES A DAY nifedipine nifedipine No nifedipine [place] ER 30 mg ER 30 mg ER 30 mg Met ro tablet,exte tablet,exte tablet,ext Urology nded nded ended release release release TAKE 1 TAKE 1 TAKE 1 TABLET BY TABLET BY TABLET BY MOUTH TWICE MOUTH TWICE MOUTH A DAY A DAY TWICE A DAY nifedipine nifedipine No nifedipine [place] ER 30 mg ER 30 mg ER 30 mg Met ro tablet,exte tablet,exte tablet,ext Urology nded nded ended release 24 release 24 release 24 hr hr hr ofloxacin ofloxacin No ofloxacin [place] 0.3 % eye 0.3 % eye 0.3 % eye [place] drops drops drops Urology prednisolon prednisolon No prednisolo [place] e acetate 1 e acetate 1 ne acetate [place] % eye % eye 1 % eye Urology drops,suspe drops,suspe drops,susp nsion nsion ension Prevnar 13 Prevnar 13 No Prevnar 13 [place] (PF) 0.5 mL (PF) 0.5 mL (PF) 0.5 [place] intramuscul intramuscul mL U rology ar syringe ar syringe intramuscu PHARMACY PHARMACY lar ADMINISTERE ADMINISTERE syringe D D PHARMACY ADMINISTER ED timolol timolol No timolol [place] n maleate 0.5 maleate 0.5 maleate [place] % eye drops % eye drops 0.5 % eye Urology drops Immunizations Ordered Immunization Filled Immunization Date Status Commen ts Source Name Name SARS-COV-2 COVID-19 2020-10-10 Completed Unive rsity of PFIZER VACCINE 00:00:00 [facility] SARS-COV-2 COVID-19 2020-10-10 Completed Unive rsity of PFIZER VACCINE 00:00:00 [facility] SARS-COV-2 COVID-19 2020-10-10 Completed Unive rsity of PFIZER VACCINE 00:00:00 [facility] SARS-COV-2 COVID-19 2020-10-10 Completed Unive rsity of PFIZER VACCINE 00:00:00 [facility] SARS-COV-2 COVID-19 2020-10-10 Completed Unive rsity of PFIZER VACCINE 00:00:00 [facility] SARS-COV-2 COVID-19 2020-10-10 Completed Unive rsity of PFIZER VACCINE 00:00:00 [facility] SARS-COV-2 COVID-19 2020-10-10 Completed Unive rsity of PFIZER VACCINE 00:00:00 [facility] SARS-COV-2 COVID-19 2020-10-10 Completed Unive rsity of PFIZER VACCINE 00:00:00 [facility] SARS-COV-2 COVID-19 2020-10-10 Completed Unive rsity of PFIZER VACCINE 00:00:00 [facility] SARS-COV-2 COVID-19 2020-04-04 Completed Unive rsity of PFIZER VACCINE 00:00:00 [facility] SARS-COV-2 COVID-19 2020-04-04 Completed Unive rsity of PFIZER VACCINE 00:00:00 [facility] SARS-COV-2 COVID-19 2020-04-04 Completed Unive rsity of PFIZER VACCINE 00:00:00 [facility] SARS-COV-2 COVID-19 2020-04-04 Completed Unive rsity of PFIZER VACCINE 00:00:00 [facility] SARS-COV-2 COVID-19 2020-04-04 Completed Unive rsity of PFIZER VACCINE 00:00:00 [facility] SARS-COV-2 COVID-19 2020-04-04 Completed Unive rsity of PFIZER VACCINE 00:00:00 [facility] SARS-COV-2 COVID-19 2020-04-04 Completed Unive rsity of PFIZER VACCINE 00:00:00 [facility] SARS-COV-2 COVID-19 2020-04-04 Completed Unive rsity of PFIZER VACCINE 00:00:00 [facility] SARS-COV-2 COVID-19 2020-04-04 Completed Unive rsity of PFIZER VACCINE 00:00:00 [facility] SARS-COV-2 COVID-19 2020-03-07 Completed Unive rsity of PFIZER VACCINE 00:00:00 [facility] SARS-COV-2 COVID-19 2020-03-07 Completed Unive rsity of PFIZER VACCINE 00:00:00 [facility] SARS-COV-2 COVID-19 2020-03-07 Completed Unive rsity of PFIZER VACCINE 00:00:00 [facility] SARS-COV-2 COVID-19 2020-03-07 Completed Unive rsity of PFIZER VACCINE 00:00:00 [facility] SARS-COV-2 COVID-19 2020-03-07 Completed Unive rsity of PFIZER VACCINE 00:00:00 [facility] SARS-COV-2 COVID-19 2020-03-07 Completed Unive rsity of PFIZER VACCINE 00:00:00 [facility] SARS-COV-2 COVID-19 2020-03-07 Completed Unive rsity of PFIZER VACCINE 00:00:00 [facility] SARS-COV-2 COVID-19 2020-03-07 Completed Unive rsity of PFIZER VACCINE 00:00:00 [facility] SARS-COV-2 COVID-19 2020-03-07 Completed Unive rsity of PFIZER VACCINE 00:00:00 [facility] pneumococcal pneumococcal 2018-11-30 Completed [facility] polysaccharide PPV23 polysaccharide PPV23 00:00:00 Urology pneumococcal pneumococcal 2018-11-30 Completed [place] [facility] polysaccharide PPV23 polysaccharide PPV23 00:00:00 Urology pneumococcal pneumococcal 2018-11-30 Completed [place] polysaccharide PPV23 polysaccharide PPV23 00:00:00 Urology pneumococcal pneumococcal 2018-11-30 Completed [place] polysaccharide PPV23 polysaccharide PPV23 00:00:00 Urology Pneumococcal 2018-11-30 Completed University o f Polysaccharide, 00:00:00 [place] [facility] PPSV23 (PNEUMOVAX) Branch Pneumococcal 2018-11-30 Completed University o f Polysaccharide, 00:00:00 [place] [facility] PPSV23 (PNEUMOVAX) Branch Pneumococcal 2018-11-30 Completed University o f Polysaccharide, 00:00:00 [place] [facility] PPSV23 (PNEUMOVAX) Branch Pneumococcal 2018-11-30 Completed University o f Polysaccharide, 00:00:00 [place] [facility] PPSV23 (PNEUMOVAX) Branch Pneumococcal 2018-11-30 Completed University o f Polysaccharide, 00:00:00 [place] [facility] PPSV23 (PNEUMOVAX) Branch Pneumococcal 2018-11-30 Completed University o f Polysaccharide, 00:00:00 [place] [facility] PPSV23 (PNEUMOVAX) Branch Pneumococcal 2018-11-30 Completed University o f Polysaccharide, 00:00:00 [place] [facility] PPSV23 (PNEUMOVAX) Branch Pneumococcal 2018-11-30 Completed University o f Polysaccharide, 00:00:00 [place] [facility] PPSV23 (PNEUMOVAX) Branch Pneumococcal 2018-11-30 Completed University o f Polysaccharide, 00:00:00 [place] [facility] PPSV23 (PNEUMOVAX) Branch Vital Signs Vital Name Observation Time Observation Value Comments Source Systolic blood 2022-03-06 15:09:00 129 mm[Hg] Univer sity of pressure [facility] Diastolic blood 2022-03-06 15:09:00 65 mm[Hg] Unive rsity of pressure [facility] Heart rate 2022-03-06 15:09:00 52 /min [facility] Body temperature 2022-03-06 15:09:00 36.61 Ledy [facility] Res[facility] rate 2022-03-06 15:09:00 16 /min [facility] Body height 2022-03-06 15:09:00 175.3 cm [facility] Body weight 2022-03-06 15:09:00 111.131 kg [facility] BMI 2022-03-06 15:09:00 36.18 kg/m2 [facility] Oxygen saturation in 2022-03-06 15:09:00 98 /min University of Arterial blood by [facility] jeri Pulse oximetry Branch Systolic blood 2021-11-12 21:01:00 134 mm[Hg] Univer sity of pressure [facility] Diastolic blood 2021-11-12 21:01:00 69 mm[Hg] Unive rsity of pressure [facility] Heart rate 2021-11-12 21:01:00 58 /min [facility] Respiratory rate 2021-11-12 21:01:00 21 /min [facility] Body height 2021-11-12 21:01:00 175.3 cm [facility] Body weight 2021-11-12 21:01:00 109.362 kg [facility] BMI 2021-11-12 21:01:00 35.60 kg/m2 [facility] Oxygen saturation in 2021-11-12 21:01:00 96 /min University of Arterial blood by [facility] Pulse oximetry Branch Systolic blood 2021-06-12 22:05:00 152 mm[Hg] Univer sity of pressure [facility] Diastolic blood 2021-06-12 22:05:00 74 mm[Hg] Unive rsity of pressure [facility] Heart rate 2021-06-12 22:03:00 71 /min [facility] Body temperature 2021-06-12 22:03:00 36.83 Ledy [facility] Respiratory rate 2021-06-12 22:03:00 16 /min [facility] Body height 2021-06-12 22:03:00 175.3 cm [facility] Body weight 2021-06-12 22:03:00 116.376 kg [facility] BMI 2021-06-12 22:03:00 37.89 kg/m2 [facility] Oxygen saturation in 2021-06-12 22:03:00 97 /min University of Arterial blood by [facility] jeri Pulse oximetry Branch Systolic blood 2021-04-23 20:44:00 139 mm[Hg] Univer sity of pressure [facility] Diastolic blood 2021-04-23 20:44:00 73 mm[Hg] Unive rsity of [facility] Heart rate 2021-04-23 20:44:00 75 /min [facility] Respiratory rate 2021-04-23 20:44:00 21 /min [facility] Body height 2021-04-23 20:44:00 175.3 cm [facility] Body weight 2021-04-23 20:44:00 118.48 kg [facility] BMI 2021-04-23 20:44:00 38.57 kg/m2 [facility] Oxygen saturation in 2021-04-23 20:44:00 94 /min [facility] Arterial blood by [facility] Pulse oximetry [place] Systolic blood 2021-12-13 12:59:52 130 mm[Hg] [facility] pressure Diastolic blood 2021-12-13 12:59:52 63 mm[Hg] [facility] pressure Heart rate 2021-12-13 12:59:52 62 /min [facility] Body temperature 2021-12-13 12:59:52 36.11 Ledy [facility] Respiratory rate 2021-12-13 12:59:52 18 /min [facility] Oxygen saturation in 2021-12-13 12:59:52 96 /min [facility] Arterial blood by Pulse oximetry Body weight 2021-12-13 09:36:[address] [facility] BMI 2021-12-13 09:36:41 34.98 kg/m2 [facility] Body height 2021-12-12 11:47:[address] [facility] Procedures Procedure Date / Time Performing Clinician Source Performed POCT SARS-COV-2 ANTIGEN 2022-03-06 15:10:[address] [facility] (BINAX NOW) [facility] DME/SUPPLY JUSTIFICATION 2022-02-12 06:01:00 Doctor Unassigned, No [facility] CBC WITH PLATELET AND 2021-12-13 09:48:[address] [facility] DIFFERENTIAL BASIC METABOLIC PANEL 2021-12-13 09:48:00 HustDavid [facility] LIPID PANEL 2021-12-13 09:48:00 HustDavid spital ESTIMATED GFR 2021-12-13 09:48:00 HustDavid spital POC GLUCOSE 2021-12-12 15:40:00 HustDavid spital ECG PRE/POST OP 2021-12-12 15:27:12 HustDavid spital CV LEFT HEART CATH LV 2021-12-12 15:13:42 [facility] GRAM WITH CORS CV PCI 2021-12-12 15:13:42 HustDavid spital ACTIVATED CLOTTING TIME 2021-12-12 14:43:00 HustDavid [facility] POC GLUCOSE 2021-12-12 11:13:00 HustDavid spital ECG PRE/POST OP 2021-12-12 11:07:24 HustDvaid spital DME/SUPPLY JUSTIFICATION 2021-09-17 05:01:00 Doctor Unassigned, No [facility] Name [facility] Branch EXTERNAL PROVIDER 2021-08-18 05:01:00 Doctor Unassigned, No [facility] RECORDS Name [facility] - Needle Biopsy 2018-01-20 00:00:00 [facility] Prostate Urology CARDIO- Heart Surgery [facility] (Stents) Urology Plan of Care Planned Activity Planned Date Details Comments Source Future Scheduled Test 2022-05-[address] [facility] 08:05:10 screening (procedure) [code = 442810276] Future Scheduled Test 2022-05-[address] [facility] 08:05:10 SCREENING [code = COLONOSCOPY SCREENING] Future Scheduled Test 2022-05-09 SHINGLES VACCINES (1 [facility] 08:05:10 of 2) [code = SHINGLES VACCINES (1 of 2)] Future Scheduled Test 2022-05-09 COVID-19 VACCINE (4 [facility] 08:05:10 - Booster for Pfizer series) [code = COVID-19 VACCINE (4 - Booster for Pfizer series)] Future Scheduled Test 2022-05-09 INFLUENZA VACCINE [facility] 08:05:10 [code = INFLUENZA VACCINE] Diagnostic Test 2021-12-29 testosterone, total, [place] Pending 00:00:00 serum [code = Urology testosterone, total, serum] Diagnostic Test 2021-12-29 PSA, serum or plasma [place] Pending 00:00:00 [code = PSA, serum Urology or plasma] Diagnostic Test 2021-12-29 urinalysis, dipstick [place] Pending 00:00:00 [code = urinalysis, Urology dipstick] Future Appointment 2022-12-28 Sarath Vega, [address] [place] [place] 10:30:00 [address]; , [place] [address] Encounters Start End Encounter Admission Attending Care Care Encounter Source Date/Time Date/Time Type Type Clinicians Facility Department ID 2020-12-08 Outpatient ALBERT ARMICHELLE OPH [id number] Univers 15:52:41 MARTY [facility] 2022-11-11 2022-11-11 Outpatient ADORE KINGSLEY [facility] [id number] Univers 14:30:00 14:30:00 ADORE CRESPO [facility] 2022-03-06 2022-03-06 Outpatient Barry NUNEZ [facility] [id number] Univers 09:00:00 09:43:14 JUAN [facility] 2022-03-06 2022-03-06 Urgent Juan Nunez [facility] 1.2.840.114 [id number] Univers 09:00:00 09:20:00 Care Unknown, Attending HEALTH 350.1.13.10 ity of [place] 4.2.7.2.686 Kye as DASH?BLEA [phone] Or dical [address] MEDICAL OFFICE BUILDING 2022-02-12 2022-02-12 Orders Doctor LAUREN 1.2.840.114 [id number] Univers 00:00:00 00:00:00 Only Unassigned, FABIAN 350.1.13.10 ity of [place] [facility] 4.2.7.2.686 [place] as [id number] [address] 2021-12-29 2021-12-29 Outpatient Elma [facility] [id number] [place] 00:00:00 00:00:00 [id number] [facility] 2021-12-29 2021-12-29 Sarath Fisher [facility] [place] - [id number] [place] 00:00:00 00:00:00 Gary Huan Freedman MD: [id number] - [address], [place] [address] , Ph. 2021-12-27 2021-12-27 Outpatient Elma [facility] [id number] -[id number] [place] 00:00:00 00:00:00 [id number] [facility] 2021-12-12 2021-12-13 [facility] Hust, 1.2.840.1 [id number] Methodi 05:48:00 11:53:00 Encounter David Mccord 42948.1.[id number] 3.430.2.7 Hospit a .3.037215 l .8 2021-12-12 2021-12-13 Outpatient [facility] 005 [id number] [place] 00:00:00 00:00:00 DAVID [address] 2021-12-12 2021-12-12 Surgery H[place], 1.2.840.1 [id number] Methodi 08:30:00 09:55:00 [address]ccord [address].1.[address] 3.430.2.7 Hospit a .3.205993 l .8 2021-12-12 2021-12-12 Travel 1.2.840.1 [id number] [id number] Methodi 00:00:00 00:00:[address] 3.430.2.7 0.2.7.3.698 Ho spita .3.815731 084.8 l .8 2021-12-11 2021-12-11 Documentat Provider, 1.2.840.1 [id number] Methodi 00:00:00 00:00:00 ion Unknown [id number] 3.430.2.7 Hospit a .3.126203 l .8 2021-11-17 2021-11-17 Outpatient Gary_Alyson [facility] [id number] -202 [place] 00:00:00 00:00:00 [id number] [facility] 2021-11-12 2021-11-12 Office Zak [facility] 1.2.372.617 [id number] Univers 15:40:00 16:00:00 Visit Adore CHEEK 350.1.13.10 ity [place] [id number] Or nina [facility] 085 Branch BUILDING 2021-11-12 2021-11-12 Outpatient R ADORE CRESPO [facility] [id number] Univers 15:40:00 15:40:00 [facility] 2021-09-17 2021-09-17 Orders Doctor LAUREN 1.2.840.114 [id number] Univers 00:00:00 00:00:00 Only Unassigned, FABIAN 350.1.13.10 ity of [place] [facility] 4.2.7.2.686 Kye as [id number] [address] 2021-08-18 2021-08-18 Orders Doctor LAUREN 1.2.840.114 [id number] Univers 00:00:00 00:00:00 Only Unassigned, FABIAN 350.1.13.10 ity of [place] [facility] 4.2.7.2.686 Kye as [id number] [facility] [address] [place] 2021-06-12 2021-06-12 Urgent [place], Marty [facility] 1.2.840.114 [id number] Univers 18:20:00 18:20:00 Care Juan Nunez [facility] 350.1.13.10 ity of [place] 4.2.7.2.686 Kye as DASH?BLEA [id number] Or dical KNEY [address] MEDICAL OFFICE BUILDING 2021-06-12 2021-06-12 Outpatient R RAULITO [facility] [id number] Univers 18:20:00 17:34:37 RANIA ity [facility] 2021-05-072021-05-07 Outpatient Gary_M [facility] [id number] -[id number] [place] 02:37:00 02:37:00 [facility] 2021-05-07 2021-05-07 Outpatient BRISEIDA Vega [facility] [id number] c-b 00:00:00 00:00:00 Sarath Phillip [id number] 2021-05-07 2021-05-07 Sarath Fisher [facility] [place] - [id number] 0 [place] 00:00:00 00:00:00 Gary Huan Freedman MD: 6560 [facility] Urology [place] [facility] - [address], [place] [address] , Ph. 2021-05-06 2021-05-06 Outpatient Gary_Alyson [facility] [id number] -202 [place] 07:41:00 07:41:00 [facility] 2021-05-05 2021-05-05 Telephone Zak ARMICHELLE 1.2.840.[id number] [facility] 00:00:00 00:00:00 Adore CHEEK 350.1.13.10 ity [facility] [place] [phone] Or dical NAL [address] [place] [address] 2021-04-30 2021-05-02 Outpatient KALEIGH [facility] [id number] [place] 00:00:00 00:00:[address] [facility] 2021-04-23 2021-04-23 Office Zak ARMICHELLE 1.2.262.[id number] [facility] 15:40:00 16:00:00 Visit Adore CHEEK 350.1.13.10 ity [facility] 4[place] [phone] Or dicjovanna NAL [address] [place] [address] 2021-04-23 2021-04-23 Outpatient R ADORE CRESPO [facility] [id number] [facility] 15:40:00 15:40:00 [facility] 2021-04-23 2021-04-23 Orders Doctor AGUILAR 1.2.840.114 [id number] Univers 00:00:00 00:00:00 Only Unassigned, FABIAN 350.1.13.10 ity of [facility] 4.2.7.2.686 Kye as [id number] [facility] [address] 2021-03-25 2021-03-25 Outpatient Sutton_M [facility] [id number] [place] 05:37:00 05:37:00 [facility] 2021-02-28 2021-02-28 Letter LAUREN Long 1.2.840.114 [id number] Univers 00:00:00 00:00:00 (Out) Marcia Baeza FABIAN 350.1.13.10 it y of [facility] 4.2.7.2.686 [place]ye as [id number] [facility] [address] 2021-02-26 2021-02-26 Laboratory Only, Ang Db Test [facility] 1.2.8 40.114 [id number] Univers 17:15:00 17:30:00 Only Unknown, [facility] HEALTH 350.1.13.10 ity of [facility] 4.2.7.2.686 [place] DASH?BLEA [id number] [address] MEDICAL OFFICE [facility] 2021-02-26 2021-02-26 [facility] [id number] Univers 17:15:00 17:15:00 MARTY ity [facility] 2021-02-17 2021-02-17 Laboratory Only, Ang Db Test [facility] 1.2.8 40.114 [id number] Univers 10:00:00 10:15:00 Only Genie Martines [facility] 350.1.13.10 ity of [place] 4.2.7.2.686 Kye as DASH?BLEA [id number] [address] MEDICAL OFFICE [facility] 2021-02-17 2021-02-17 Outpatient R CONRAD [facility] [id number] Univers 10:00:00 10:00:00 GENIE stock [facility] 2021-02-06 2021-02-06 Outpatient Sutton_M [facility] [id number] [place] 12:06:00 12:06:00 [id number] [facility] 2021-02-06 2021-02-06 Outpatient Gary Maribel [facility] [id number] e-7 00:00:00 00:00:00 Sarath Fisher [id number] 2021-02-06 2021-02-06 Sarath Phillip [facility] [place] - [id number] [place] 00:00:00 00:00:00 Huan Vega MD: 4219 [facility] [address], - U [facility] [address] , Ph. 2021-01-19 2021-01-19 Emergency [facility] [id number] [id number] 20 [place] 00:00:00 00:00:[address]EEANNA [address] 2021-01-13 2021-01-13 Outpatient Gary_M [facility] [id number] [place] 09:46:00 09:46:00 [id number] [facility] 2021-01-10 2021-01-10 Outpatient Gary_Alyson [facility] [id number] -202 [place] 12:14:00 12:14:00 [id number] [facility] 2021-01-10 2021-01-10 Sarath Fisher [facility] [place] - [id number] 3 [place] 00:00:00 00:00:00 Huan Vega MD: 6560 ro Urology [place] Urology SHANELL [facility] - [address], [place] [address] , Ph. 2021-01-10 2021-01-10 Outpatient Gary Maribel [facility] [id number] 00:00:00 00:00:00 Sarath Fisher [id number] 2020-12-21 2020-12-21 Outpatient R ADORE CRESPO [facility] [id number] Univers 19:30:00 19:30:00 ADORE CRESPO coco [facility] 2020-12-21 2020-12-21 Enrique AGUILAR 1.2.840.[id number] [place] [address] 00:00:00 00:00:00 Only Unassigned, FABIAN 350.1.13.10 ity of [facility] 4.2.7.2.686 Kye [id number] [facility] [address] 2020-12-20 2020-12-20 Ground Crew Chief 1, Shahzad Sleep Lab Bed [facility] 1. 2.840.114 [id number] Univers 14:51:29 17:21:29 Visit Adore Crespo 350.1.13. 10 ity [facility] 4.2.7.2.686 [facility] [id number] [facility] [address] Branch 2020-12-18 2020-12-18 Outpatient R [facility] [id number] Univers 16:15:00 16:15:00 ity of [facility] 2020-11-21 2020-11-21 Outpatient R ADORE CRESPO [facility] [id number] Univers 19:30:00 19:30:00 ADORE CRESPO ity of [facility] 2020-11-18 2020-11-18 Outpatient R [facility] [id number] Univers 08:30:00 08:30:00 ity of [facility] 2020-11-18 2020-11-18 Laboratory Only, Adc Test [facility] 1.2.840. [id number] [facility] 08:08:10 08:23:10 Only Adore Crespo 350.1.13. 10 ity of [place] 4.2.7.2.686 [facility] [id number] [facility] [address] 2020-11-11 2020-11-11 Outpatient Gary_M U [facility] [id number] -202 [place] 02:18:00 02:18:00 [id number] [facility] 2020-10-25 2020-10-25 Outpatient HUST, [facility] [id number] [place] 00:00:00 00:00:00 DAVID Sherman [facility] 2020-10-23 2020-10-23 Laboratory Only, Adc Test [facility] 1.2.840. 114 [id number] Univers 09:27:19 09:42:19 Only Herbert Brito 350.1.13.10 ity of [place] [id number] [facility] [address] 2020-10-23 2020-10-23 Outpatient R [facility] [id number] Univers 09:30:00 09:30:00 ity [facility] 2020-10-10 2020-10-10 Outpatient R YOBANI [facility] [id number] Univers 11:50:00 11:50:00 NEERAJ stock [facility] 2020-10-10 2020-10-10 Imm/Inj Nurse, Shahzad Pob Immunization [facility] [id number] Univers 09:31:22 09:31:33 Visit Neeraj Hilton 350.1.13 .10 [place] [phone] [facility] 2020-06-26 2020-06-26 Hospital [facility] [id number] Univers 08:29:00 11:59:00 Encounter Marty Cehek 350.1.13.10 [place] [phone] [facility] [address] 2020-06-26 2020-06-26 Surgery [facility] [id number] Univers 10:04:00 10:45:00 Marty Cheek 350.1.13.10 [place] [phone] [facility] [address] 2020-06-25 2020-06-25 Laboratory Only, Adc Test [facility] 1.2.840. 114 [id number] Univers 09:11:38 09:26:38 Only Marty Bates 350.1.13.1 0 [place] [phone] [facility] [address] 2020-06-25 2020-06-25 Outpatient R AL[facility] [id number] Univers 09:15:00 09:15:00 MARTY stock [facility] 2020-06-19 2020-06-19 Ground Crew Chief Laurita, Adc Lab Main [facility] 1.2.8 40.114 [id number] Univers 12:19:11 12:34:11 Visit Marty Bates 350.1.13.1 0 [facility] 4.2.7.2.686 [facility] Professio [phone] Or dic[address] 2020-06-19 2020-06-19 Outpatient Barry BATES [facility] [id number] Univers 11:45:00 11:45:00 MARTY [facility] 2020-06-19 2020-06-19 Orders Doctor AGUILAR 1.2.840.114 [id number] Univers 00:00:00 00:00:00 Only UnassignedFABIAN 350.1.13.10 ity [facility] 4.2.7.2.686 [place] [id number] [address] 2020-04-04 2020-04-04 [facility]patient [facility] [id number] Univers 07:50:00 07:50:00 RINA [facility] 2020-03-28 2020-03-28 Outpatient Barry [facility] [id number] Univers 07:50:00 07:50:00 RINA [facility] 2020-03-07 2020-03-07 Outpatient Barry ESCOBAR [facility] [id number] Univers 09:00:00 09:00:00 RINA [facility] 2020-03-07 2020-03-07 Outpatient [facility] [id number] Univers 09:00:00 09:00:00 RINA [facility] 2019-08-27 2019-08-27 Emergency [place] 195 [id number] [place] 00:00:00 00:00:00 CHARLES Buckner [facility] 2019-04-27 2019-04-27 Outpatient Barry OTT [facility] [id number] Univers 11:00:00 11:00:00 JASMIN stock o f [facility] 2019-04-27 2019-04-27 Orders Doctor LAUREN Goodwin2.840.114 [id number] Univers 00:00:00 00:00:00 Only UnassignedSANCHOY 350.1.13.10 ity of [facility] 4.2.7.2.686 [place] [id number] [address] 2019-02-24 2019-03-04 Inpatient BILLY Meng Wharton0 [id number] [address] [place] [address] 00:00:00 00:00:00 DAX [address] Results Test Description Test Time Test Comments Results Result Comments Source POCT SARS-COV-2 ANTIGEN (BINAX NOW) 2022-03-06 15:10:00 Test Item Value Reference Range Interpretation Comme nts POCT SARS-COV-2 ANTIGEN (test code = 86335-6) Not Detected Not Dete cted On board controls acceptable with C Line (test code = Yes 3574) [facility] - Urine 2021-12-29 10:59:00 Test Item Value Reference Range Interpretation Comments leukocytes (test code negative neg = leukocytes) urobilinogen (test 0.2 E.U./dL sm amt (.5-1mg/dL) code = urobilinogen) protein (test code = negative See_Comment [Autom ated protein) message] The sy stem which generated this result transmitted reference range : <=150 mg/d. The reference range was not used to interpret this result as normal/abnormal . pH (test code = pH) 5.5 4.5-8 blood (test code = negative See_Comment [Automat ed blood) message] The sy stem which generated this result transmitted reference range : <=3 RBC. The reference range was not used to interpret this result as normal/abnormal . specific gravity 1.015 1.005-1.025 (test code = specific gravity) ketone (test code = negative none ketone) bilirubin (test code negative neg = bilirubin) glucose (test code = 500 mg/dL See_Comment [Autom ated glucose) message] The sy stem which generated this result transmitted reference range : <=130 mg/d. The reference range was not used to interpret this result as normal/abnormal . color (test code = yellow yellow color) clarity (test code = clear clear or cloudy clarity) nitrite (test code = negative neg nitrite) [facility] Pre/Post Op (in AM)2021-12-13 02:18:36 Test Item Value Reference Range Interpretation Comments Ventricular rate (test 58 code = 253) Atrial rate (test code 58 = 255) RI interval (test code 426 = 266) QRSD interval (test 88 code = 260) QT interval (test code 444 = 264) QTC interval (test code 435 = 265) P axis 1 (test code = 73 267) QRS axis 1 (test code = -10 268) T wave axis (test code 35 = 270) EKG impression (test Sinus bradycardia with code = 273) 1st degree AV block-Low voltage QRS-Inferior infarct , age undetermined-Abnormal ECG- [facility] [id number] 15:41:00 Test Item Value Reference Range Interpretation Comments POC glucose (test code 137 mg/dL 65-99 H Opera tor Name: = 90587-6) Barnard Malathi Device ID: [id number] able: [facility] Notified voucher clerk Interpretation Abnormal (test code = 33768-9) [facility] [id number] 14:47:00 Test Item Value Reference Range Interpretation Comments Activated clotting time 349 See_Comment H Oper ator Name: Eyer (test code = 5298) Parminder AppTap ID: [id number] [Autom ated message] The sy stem which generated this result transmit yeimi reference range : 96 - 152 sec. The reference range was not used to int erpret this result as normal/abnormal . Lab Interpretation (test Abnormal code = 60429-8) [facility] [Presence] in Respiratory specimen by FERNANDEZ with probe [id number] 13:24:13 Test Item Value Reference Range Interpretation Comments SARS-CoV-2 (COVID-19) RNA Not detected [Presence] in Respiratory specimen by FERNANDEZ with probe detection (test code = 95407-2) Whether patient is employed in a Unknown healthcare setting (test code = 93542-8) Whether the patient has symptoms Unknown related to condition of interest (test code = 17177-1) Whether the patient was Unknown hospitalized for condition of interest (test code = 72010-0) Whether the patient was admitted Unknown to intensive care unit (ICU) for condition of interest (test code = 67972-2) Whether patient resides in a Unknown congregate care setting (test code = 14058-0) status (test code = Unknown 76008-3) Date and time of symptom onset Unknown (test code = 73666-2) HUAN COOK WESTPSA, serum or [id number] 00:00:00 Test Item Value Reference Range Interpretation Comments PSA testosterone (test code = PSA testosterone) PSA_1 (test code = PSA_1) <0.02 testosterone_1 (test code = 38.04 testosterone_1) shbg_1 (test code = shbg_1) 26.8 calculated free testosterone_1 (test 0.768 code = calculated free testosterone_1) [facility] UrologyMRI LUMBAR [id number] 10:53:56CLINICAL INDICATION: M54.5 Low back pain, radiation to right sideMODALITY: Avanto 1.5 Marlena 18 channe l MRI TECHNIQUE: Multiplanar multi sequence MRI examination of the lumbar spine was performed. IV contrast, 18 ml Dotarem administered and post-contrast imaging performed.IMPRESSION:1. There are five lumbar vertebra without fracture or destructive osseous lesion.2. Mild degeneration of discs from L1-2 - L4-5.3. There is borderline central canal stenosis at L2-3 with patent foramen.4. At L3- 4 there is 3 mm diffuse spondylitic protrusion [...] administration.FINDINGS AT SPECIFIC LEVELS:L5-S1: Disc height is well- maintained with normal hydration. Central canal and foramen [...] is mildly reduced with nuclear dehydration and s pondylosis. 3 mm diffuse spondylitic protrusion is present. There is mild to moderate circumferential central canal stenosis with moderate right and mild left foraminal narrowing. Moderate hypertrophicfacet arthrosis is present with ligamentum flavum hypertrophy.L2-L3: There is mild loss of disc height with nuclear dehydration and circumferential spondylosis. 2 mm diffuse spondylitic protrusion is present. Facet joints are moderately degenerated with degenerated ligamentum flavum. Central canal is borderline size. Foramen are patent without focal nerve root impingement.L1-L2: There is mild loss ofdisc height with nuclear dehydration and spondylosis. Broad-based 1 mm posterior spondylitic protrusion is present with patent canal and patent foramen. Facet joints are moderately degenerated.MRI PELVIS W/WO (PROSTATE)2018-02-07 13:44:18CLINICAL INDICATION: C61 malig sergio prostateMODALITY: Siemens Skyra 3.0 Marlena MRITECHNIQUE: Multiplanar, multiparametric MRI of the prostate is performed with T1, T2 and diffusion weighted imaging. Quantitative analysis is performed with DynaCAD. IV contrast is administered, 20.0 ml Dotarem Dynamic post-contrast imaging with DynaCAD quantitative analysis are accomplished.80299 MR DynaCADIMPRESSION:Large targeted lesion in the posterior left peripheral zone extending from the apex to the base, suspicious for high-grade tumor. No definite extracapsular penetration or extra prostatic malignancy.PI-RADS5: Highly suspicious for malignancy.FINDINGS:COMPARISON: NoneNormal regional marrow [...] apex to the base. This demonstrates moderately lowT2 signal with restricted diffusion. There is no suspicious focal enhancement. The lesion abuts the prostate capsule with mild bulging. There is no definite extracapsular penetration. Post-biopsy hemorrhage is noted in the right peripheral zone. Mild to moderate BPH is evident.Seminal vesicles exhibitnormal signal intensity. Neurovascular bundles are symmetric in appearance without definite tumor inv olvement.
--- NOTE | 2022-06-18 09:21 | EDPHYS ---
Physician Documentation [facility] Name: Mary Porter Age: 72 yrs Sex: Male : 1950 Arrival Date: 06/18/2022 Time: 08:56 Bed 15 Private MD: ED Physician Khoi Montesinos HPI: 06/18 09:35 This 72 yrs old Male presents to ER via Ambulatory with complaints of Hip rt Pain, Leg Pain. 09:35 Presents to the ED with a left lower back pain radiating posteriorly down the left rt thigh for about 4 days now. Patient denies any discrete injury but states that his increased his treadmill walking. He denies numbness, tingling, bowel, bladder incontinence, fever, other acute complaints. Pain is aching in nature. No other aggravating or alleviating factors. Denies other acute complaints.. Historical: - Allergies: 09:14 No Known Allergies; iw - PMHx: 09:14 cancer- testicular; Hypertension; High Cholesterol; Prostate Cancer; Diabetes - NIDDM; iw GERD; - Immunization history:: Adult Immunizations up to date, Client reports receiving the 2nd dose of the Covid vaccine. - Family history:: not pertinent. - Social history:: Smoking status: Patient denies any tobacco usage or history of. Patient/guardian denies using alcohol. ROS: 09:35 Constitutional: Negative for fever, chills, and weight loss, Cardiovascular: Negative rt for chest pain, palpitations, and edema, Respiratory: Negative for shortness of breath, cough, wheezing, and pleuritic chest pain, Abdomen/GI: Negative for abdominal pain, nausea, vomiting, diarrhea, and constipation, Neuro: Negative for headache, weakness, numbness, tingling, and seizure, Psych: Negative for depression, anxiety, suicide ideation, homicidal ideation, and hallucinations. 09:35 Back: Positive for pain at rest, pain with movement. Exam: 09:35 Constitutional: This is a well developed, well nourished patient who is awake, alert, rt and in no acute distress. Head/Face: Normocephalic, atraumatic. Chest/axilla: Normal chest wall appearance and motion. Nontender with no deformity. No lesions are appreciated. Cardiovascular: Regular rate and rhythm with a normal S1 and S2. No gallops, murmurs, or rubs. Normal PMI, no JVD. No pulse deficits. Respiratory: Lungs have equal breath sounds bilaterally, clear to auscultation and percussion. No rales, rhonchi or wheezes noted. No increased work of breathing, no retractions or nasal flaring. Abdomen/GI: Soft, non-tender, with normal bowel sounds. No distension or tympany. No guarding or rebound. No evidence of tenderness throughout. Skin: Warm, dry with normal turgor. Normal color with no rashes, no lesions, and no evidence of cellulitis. MS/ Extremity: Pulses equal, no cyanosis. Neurovascular intact. Full, normal range of motion. Neuro: Awake and alert, GCS 15, oriented to person, place, time, and situation. Cranial nerves II-XII grossly intact. Motor strength 5/5 in all extremities. Sensory grossly intact. Cerebellar exam normal. Normal gait. Psych: Awake, alert, with orientation to person, place and time. Behavior, mood, and affect are within normal limits. 09:35 Back: Tenderness to the left lower paraspinal region, no midline tenderness, no step-offs. Vital Signs: 09:55 BP 111 / 84; Pulse 56; Resp 18; Temp 98.1(O); Weight 95.25 kg; Height 5 ft. 6 in. ; ld1 Pain 7/10; 09:55 Body Mass Index 33.89 (95.25 kg, 167.64 cm) ld1 09:55 Pain Scale: Adult ld1 MDM: 09:06 Patient medically screened. rt 09:35 Differential diagnosis: Arthritis, sciatica, cauda equina syndrome, spinal epidural rt abscess. Data reviewed: vital signs, nurses notes. Test considered but Not performed: MRI: Afebrile, symptoms most consistent with mechanical back pain, no neurologic deficits, very low suspicion for sciatica, spinal epidural abscess, cord compression. MRI not indicated. Care significantly affected by the following chronic conditions: Diabetes, CAD. Counseling: I had a detailed discussion with the patient and/or guardian regarding: the historical points, exam findings, and any diagnostic results supporting the discharge/admit diagnosis, the need for outpatient follow up. Administered Medications: 09:46 Drug: Acetaminophen PO 1000 mg Route: PO; ld1 09:46 Drug: Cyclobenzaprine PO 10 mg Route: PO; ld1 09:46 Not Given (not in pyxiss): Gabapentin PO 100 mg PO once ld1 Disposition Summary: 06/18/22 09:20 Discharge Ordered Location: Home rt Problem: new rt Symptoms: are unchanged rt Condition: Stable rt Diagnosis - Low back pain rt Followup: rt - With: Private Physician - When: 2 - 3 days - Reason: Discharge Instructions: - Discharge Summary Sheet rt - Acute Back Pain, Adult rt - Lumbosacral Radiculopathy rt Forms: - Medication Reconciliation Form rt - Thank You Letter rt - Antibiotic Education rt - Prescription Opioid Use rt Prescriptions: - Lidoderm 5 % Topical adhesive patch, medicated - apply 1 patch by TOPICAL route every 24 hours leave on most painful area for up rt to 12 hrs; 10 patch; Refills: 0, Product Selection Permitted - gabapentin 100 mg Oral capsule - take 1 capsule by ORAL route every 8 hours; 30 capsule; Refills: 0, Product rt Selection Permitted - Cyclobenzaprine 10 mg Oral Tablet - take 1 tablet by ORAL route every 8 hours As needed; 30 tablet; Refills: 0, rt Product Selection Permitted Signatures: Zulay Alonzo, RN RN iw Robina Christine RN RN ld1 Khoi Montesinos MD MD rt
--- NOTE | 2022-06-18 09:21 | ER ---
Nurse's Notes [facility] Name: Mary Porter Age: 72 yrs Sex: Male : 1950 Arrival Date: 06/18/2022 Time: 08:56 Bed 15 Private MD: Diagnosis: Low back pain Presentation: 06/18 09:12 Chief complaint: Patient states: left lower back pain radiating to left leg since iw Wednesday , started after working in the yard. Coronavirus screen: At this time, the client does not indicate any symptoms associated with coronavirus-19. Ebola Screen: Patient negative for fever greater than or equal to 101.5 degrees Fahrenheit, and additional compatible Ebola Virus Disease symptoms Patient denies exposure to infectious person. Patient denies travel to an Ebola-affected area in the 21 days before illness onset. No symptoms or risks identified at this time. Onset of symptoms was June 15, 2022. 09:12 Method Of Arrival: Ambulatory iw 09:12 Acuity: MARISELA 4 iw 09:57 Initial Sepsis Screen: Does the patient meet any 2 criteria? No. Patient's initial ld1 sepsis screen is negative. Does the patient have a suspected source of infection? No. Patient's initial sepsis screen is negative. Risk Assessment: Do you want to hurt yourself or someone else? Patient reports no desire to harm self or others. Historical: - Allergies: 09:14 No Known Allergies; iw - PMHx: 09:14 cancer- testicular; Hypertension; High Cholesterol; Prostate Cancer; Diabetes - NIDDM; iw GERD; - Immunization history:: Adult Immunizations up to date, Client reports receiving the 2nd dose of the Covid vaccine. - Family history:: not pertinent. - Social history:: Smoking status: Patient denies any tobacco usage or history of. Patient/guardian denies using alcohol. Screenin:55 [place] ED Fall Risk Assessment (Adult) History of falling in the last 3 months, ld1 including since admission No falls in past 3 months (0 pts). Abuse screen: Denies threats or abuse. Denies injuries from another. Nutritional screening: No deficits noted. Tuberculosis screening: No symptoms or risk factors identified. Assessment: 09:55 General: Appears in no apparent distress. comfortable, Behavior is calm, cooperative, ld1 appropriate for age. Pain: Complains of pain in left leg Pain does not radiate. Pain currently is 8 out of 10 on a pain scale. Quality of pain is described as sharp, shooting, throbbing. Neuro: Level of Consciousness is awake, alert, obeys commands, Oriented to person, place, time, situation. Cardiovascular: Capillary refill < 3 seconds Patient's skin is warm and dry. Respiratory: Airway is patent Respiratory effort is even, unlabored. GI: Abdomen is flat, non-distended. : No signs and/or symptoms were reported regarding the genitourinary system. EENT: No signs and/or symptoms were reported regarding the EENT system. Derm: No signs and/or symptoms reported regarding the dermatologic system. Musculoskeletal: No signs and/or symptoms reported regarding the musculoskeletal system. Vital Signs: 09:55 BP 111 / 84; Pulse 56; Resp 18; Temp 98.1(O); Weight 95.25 kg; Height 5 ft. 6 in. ; ld1 Pain 7/10; 09:55 Body Mass Index 33.89 (95.25 kg, 167.64 cm) ld1 09:55 Pain Scale: Adult ld1 ED Course: 08:59 Patient arrived in ED. rg4 09:01 Khoi Montesinos MD is Attending Physician. rt 09:14 Triage completed. iw 09:15 Arm band placed on. iw 09:39 Robina Christine, BLADIMIR is Primary Nurse. ld1 09:55 Patient has correct armband on for positive identification. Placed in gown. Bed in low ld1 position. Call light in reach. Side rails up X2. Pulse ox on. NIBP on. Door closed. Noise minimized. Warm blanket given. 09:55 No provider procedures requiring assistance completed. Patient did not have IV access ld1 during this emergency room visit. Administered Medications: 09:46 Drug: Acetaminophen PO 1000 mg Route: PO; ld1 09:46 Drug: Cyclobenzaprine PO 10 mg Route: PO; ld1 :46 Not Given (not in pyxiss): Gabapentin PO 100 mg PO once ld1 Medication: :55 VIS not applicable for this client. ld1 Outcome: 09:20 Discharge ordered by . rt 09:55 Discharged to home ambulatory, with family. ld1 09:55 Condition: stable 09:55 Discharge instructions given to patient, family, Instructed on discharge instructions, follow up and referral plans. medication usage, Demonstrated understanding of instructions, follow-up care, medications, Prescriptions given X 3. 09:57 Patient left the ED. ld1 Signatures: Zulay Alonzo RN RN iw Garcia, Rubi 4 Robina Christine RN RN ld1 Khoi Montesinos MD MD rt
[2022-06-18] MEDS ORDERED: ACETAMINOPHEN 500 MG TAB ONE (09:49)
[2022-06-18] MEDS ORDERED: CYCLOBENZAPRINE 10 MG TAB ONE (09:49)
[2022-06-18 10:03] VITALS: BP 111/84; TEMP 98.1
== END 2022-06-18 09:57 | disposition home or self-care (01) ==
LOC: ER 08:56
DX: M54.50 Low back pain, unspecified (principal)
CPT/HCPCS: 99283